=== PATIENT | male | born 1940 | race Caucasian/White ===

== ENCOUNTER 2020-09-04 09:13 | Outpatient (REF) | payer MEDICARE, SELFPAY ==
[2020-09-04 09:19] LABS: MANUAL DIFF FLAG NO
[2020-09-04 09:45] LABS: Basophils Absolute Auto 0.1 X10*3/uL (0.0-0.2); Basophils Percent Auto 0.6 % (0-2); Eosinophils Absolute Auto 0.5 X10*3/uL (0.0-0.4); Eosinophils Percent Auto 5.3 % (0-4); Hematocrit 34.6 % (42-52); Hemoglobin 11.8 g/dl (14.0-18.0); Imm Gran Abs Auto 0.07 X10*3/uL (0.00-0.03); Imm Gran Pct Auto 0.8 % (0.0-0.4); Lymphocytes Absolute Auto 1.2 X10*3/uL (1.2-4.9); Lymphocytes Percent Auto 13.8 % (20-40); Mean Corpuscular HGB Conc 34.1 g/dl (31.0-36.0); Mean Corpuscular Hemoglobin 29.9 pg (27.0-33.0); Mean Corpuscular Volume 87.6 fL (80-98); Mean Platelet Volume 9.1 fL (9.4-12.4); Monocytes Absolute Auto 0.7 X10*3/uL (0.1-1.2); Monocytes Percent Auto 8.1 % (2-11); Neutrophils Absolute Auto 6.4 X10*3/uL (2.0-8.3); Neutrophils Percent Auto 71.4 % (45-73); Platelet Count 360 X10*3/uL (160-400); Red Blood Count 3.95 X10*6/uL (4.60-5.80); Red Cell Distribution Width 13.6 % (11.0-16.0)
[2020-09-04 09:59] LABS: Alanine Aminotransferase 12 U/L (0-40); Albumin Level 3.6 g/dL (3.5-5.0); Alkaline Phosphatase 52 U/L (39-117); Anion Gap 12 (12-20); Aspartate Amino Transferase 10 U/L (5-37); Bilirubin Total 0.4 mg/dL (0.0-1.0); Blood Urea Nitrogen 19 mg/dL (9-16); Calcium 9.3 mg/dL (8.4-10.2); Carbon Dioxide 24 mmol/L (22-29); Chloride 105 mmol/L (96-108); Estimated Glomerular Filt Rate > 60; Glucose Random 84 mg/dL (60-115); Potassium 4.2 mmol/l (3.3-5.1); Sodium 137 mmol/L (135-145); Total Protein 6.7 g/dL (6.5-8.0)
[2020-09-04 10:19] LABS: Thyroid Stimulating Hormone 1.42 mIU/mL (0.32-4.0)
== END 2020-09-04 09:14 | disposition home or self-care (01) ==
LOC: HO.HSH4W 09:13
PROVIDERS: Visit Provider Internal Medicine
DX: E03.9 Hypothyroidism, unspecified (principal); N18.9 Chronic kidney disease, unspecified
CPT/HCPCS: 36415; 80053; 84443; 85025

== ENCOUNTER 2020-09-11 11:38 | Outpatient (REF) | payer MEDICARE, SELFPAY | END 2020-09-11 11:39 | disposition home or self-care (01) | LOC: HO.HSH4W 11:38 | PROVIDERS: Visit Provider Internal Medicine | DX: R21 Rash and other nonspecific skin eruption (principal) | CPT/HCPCS: 87220 ==

== ENCOUNTER 2020-09-12 06:30 | Outpatient (REF) | payer MEDICARE, SELFPAY ==
[2020-09-12 10:15] LABS: Vitamin D 25-OH Total 45.9 ng/mL (>30)
== END 2020-09-12 06:31 | disposition home or self-care (01) ==
LOC: HO.HSH4W 06:30
PROVIDERS: Visit Provider Internal Medicine
DX: R10.13 Epigastric pain (principal); E55.9 Vitamin D deficiency, unspecified
CPT/HCPCS: 82306; 99203

== ENCOUNTER 2020-09-20 11:30 | Day surgery (SDC) | payer MEDICARE, SELFPAY ==
--- NOTE | 2020-09-19 09:33 | HO.ANESPROP2 ---
Documented by User: Salma Badillo 09/19/20 13:30 HPI - Anesthesia Eval Consult details Narrative: 80yo M for EGD *DNR* *Resides at [facility]* [facility] Past Medical History Medical History (Updated 09/19/20 @ 09:35 by Salma Badillo) BPH (benign prostatic hyperplasia) Depression Diabetes Dysphagia HTN (hypertension), benign Hypothyroid Lumbar radiculopathy Neuropathy Obesity Post herpetic neuralgia Urinary catheter in place Family History Family History (Updated 09/12/20 @ 15:05 by Michelle Barney MA) Father History of heart attack Mother Hx of diabetes mellitus Hx of arthrodesis Surgical History Surgical History Hx of cholecystectomy Social History Social History Alcohol intake: never Smoking Status: Never smoker Use of substances other than those prescribed or required for medical reasons: No Advance Directives: Yes Advance Directives on File: Yes Advance Directives Date on File: 09/19/20 Meds Allergies Allergy/AdvReac Type Severity Reaction Status Date / Time amoxicillin [AMOXICILLIN] Allergy Unknown SWELLING Unverified 08/09/20 19:49 bee pollen [BEE STINGS] Allergy Unknown SWELLING Unverified 08/09/20 19:49 clavulanic acid [Augmentin] Allergy Unknown Verified 05/15/20 00:00 shellfish derived Allergy Unknown HIVES Unverified 08/09/20 19:49 [SHELLFISH DERIVED] turkey [TURKEY] Allergy Unknown SWELLING Unverified 08/09/20 19:49 bees Allergy Unknown Uncoded 05/15/20 00:00 poultry Allergy Unknown Uncoded 05/15/20 00:00 shellfish Allergy Unknown Uncoded 05/15/20 00:00 Sulfa Allergy Unknown Uncoded 05/15/20 00:00 [place] Allergy Unknown Uncoded 05/15/20 00:00 Home Medications Medication Instructions Recorded Confirmed Type amlodipine 2.5 mg tablet 2.5 mg PO DAILY 09/12/20 09/12/20 History buspirone 15 mg tablet 15 mg PO BID 09/12/20 09/12/20 History gabapentin 100 mg capsule 100 mg PO BEDTIME 09/12/20 09/12/20 History insulin glargine 100 unit/mL 20 unit SUBCUT DAILY ml 09/12/20 09/12/20 History subcutaneous solution insulin lispro 100 unit/mL See Rx Instructions SUBCUT TID 09/12/20 09/12/20 History subcutaneous pen levothyroxine 25 mcg tablet 25 mcg PO DAILY 09/12/20 09/12/20 History multivitamin 1 tab PO DAILY 09/12/20 09/12/20 History omeprazole 40 mg capsule,delayed 40 mg PO DAILY 09/12/20 09/12/20 History release sertraline 100 mg tablet 75 mg PO DAILY 09/12/20 09/12/20 History Exam Exam Date and Time: September 19, [id number] Pertinent Lab Results Pertinent Lab Results: Laboratory Tests 09/04/20 09/04/20 07:45 07:45 WBC 9.0 Hgb 11.8 L Hct 34.6 L Plt Count 360 Sodium 137 Potassium 4.2 Chloride 105 Carbon Dioxide 24 BUN 19 H Creatinine 1.12 Assessment and Plan Assessment Anesthesia Assessment: Chart Reviewed Documented by User: Rajat Ch 09/20/20 13:14 [facility] Past Medical History Medical History (Updated 09/19/20 @ 09:35 by Salma Badillo) BPH (benign prostatic hyperplasia) Depression Diabetes Dysphagia HTN (hypertension), benign Hypothyroid Lumbar radiculopathy Neuropathy Obesity Post herpetic neuralgia Urinary catheter in place Family History Family History (Updated 09/12/20 @ 15:05 by Michelle Barney MA) Father History of heart attack Mother Hx of diabetes mellitus Hx of arthrodesis Surgical History Surgical History Hx of cholecystectomy Social History Social History Alcohol intake: never Smoking Status: Never smoker Use of substances other than those prescribed or required for medical reasons: No Advance Directives: Yes Advance Directives on File: Yes Advance Directives Date on File: 09/19/20 Meds Allergies Allergy/AdvReac Type Severity Reaction Status Date / Time amoxicillin [AMOXICILLIN] Allergy Unknown SWELLING Unverified 08/09/20 19:49 bee pollen [BEE STINGS] Allergy Unknown SWELLING Unverified 08/09/20 19:49 clavulanic acid [Augmentin] Allergy Unknown Verified 05/15/20 00:00 shellfish derived Allergy Unknown HIVES Unverified 08/09/20 19:49 [SHELLFISH DERIVED] turkey [TURKEY] Allergy Unknown SWELLING Unverified 08/09/20 19:49 bees Allergy Unknown Uncoded 05/15/20 00:00 poultry Allergy Unknown Uncoded 05/15/20 00:00 shellfish Allergy Unknown Uncoded 05/15/20 00:00 Sulfa Allergy Unknown Uncoded 05/15/20 00:00 [place] Allergy Unknown Uncoded 05/15/20 00:00 Home Medications Medication Instructions Recorded Confirmed Type amlodipine 2.5 mg tablet 2.5 mg PO DAILY 09/12/20 09/12/20 History buspirone 15 mg tablet 15 mg PO BID 09/12/20 09/12/20 History gabapentin 100 mg capsule 100 mg PO BEDTIME 09/12/20 09/12/20 History insulin glargine 100 unit/mL 20 unit SUBCUT DAILY ml 09/12/20 09/12/20 History subcutaneous solution insulin lispro 100 unit/mL See Rx Instructions SUBCUT TID 09/12/20 09/12/20 History subcutaneous pen levothyroxine 25 mcg tablet 25 mcg PO DAILY 09/12/20 09/12/20 History multivitamin 1 tab PO DAILY 09/12/20 09/12/20 History omeprazole 40 mg capsule,delayed 40 mg PO DAILY 09/12/20 09/12/20 History release sertraline 100 mg tablet 75 mg PO DAILY 09/12/20 09/12/20 History Exam Airway Mallampati Class: III TM Dist: >3cm Loose/Missing/Broken Teeth: Yes (Missing many. Denies loose) Heart: RRR Assessment and Plan Assessment Anesthesia Assessment: Anesthesia Plan Discussed Final Anesthetic Review NPO: Yes ASA Class: III Final Preanesthetic Review: DNR Form (If Appl.) (Rescinded until discharge from PACU) Anesthetic Plan Anesthetic Plan: MAC: Disposition: Standard PACU
[2020-09-19 12:34] VITALS: BMI 28.8
[2020-09-20 12:23] VITALS: BP 117/73; PULSE 86; RESP 16; TEMP 36.2; O2SAT 96
[2020-09-20 12:26] LABS: Glucose, Whole Blood 186 mg/dL (60-115)
[2020-09-20] MEDS: Lactated Ringers 1,000 ML 100 ML IVCONT (13:04)
--- NOTE | 2020-09-20 13:21 | P.HPSUR_ITS ---
Pre-Procedural Eval Section B Chief Complaint: dysphagia Details of Present Illness: weight loss Relevant Family History (Specify if Yes): No Relevant Social History: None Present Medications: see Short Stay Collaborative assessment Medical History: Significant History (htn, Dm, hypothyroid, depression) History of Previous Operations: Relevant previous surgery/procedure and date(s) (cholecystectomy) Allergies: Allergies Allergy/AdvReac Type Severity Reaction Status Date / Time amoxicillin [AMOXICILLIN] Allergy Unknown SWELLING Unverified 08/09/20 19:49 bee pollen [BEE STINGS] Allergy Unknown SWELLING Unverified 08/09/20 19:49 clavulanic acid [Augmentin] Allergy Unknown Verified 05/15/20 00:00 shellfish derived Allergy Unknown HIVES Unverified 08/09/20 19:49 [SHELLFISH DERIVED] turkey [TURKEY] Allergy Unknown SWELLING Unverified 08/09/20 19:49 bees Allergy Unknown Uncoded 05/15/20 00:00 poultry Allergy Unknown Uncoded 05/15/20 00:00 shellfish Allergy Unknown Uncoded 05/15/20 00:00 Sulfa Allergy Unknown Uncoded 05/15/20 00:00 [place] Allergy Unknown Uncoded 05/15/20 00:00 Review of Systems Sugical H&P ROS: Negative: Constitution, Cardiovascular, Respiratory, Neurological, Psychiatric, Hem-Onc, Allergic/Immunologic, Gastrointestinal, Genitourinary, Musculoskeletal, Integumentary, Endocrine and Eyes/Ears/Nose/Throat Exam Surgical H&P Exam: Normal: HEENT, Normal: Heart, Normal: Lungs, Normal: Extremities, Normal: Abdomen, Normal: Skin and Normal: Neurological Plan Diagnosis/Plan: Unchanged Patient has been examined and remains a candidate for the planned procedure
--- NOTE | 2020-09-20 13:36 | PM.OP ---
Brief Operative Note Date of procedure: 09/20/20 Pre-op diagnosis: dysphagia Post-op diagnosis: same Procedure: egd, see op note Surgeon: Pam Astorga MD Anesthesia: MAC Estimated blood loss (mL): 5 Condition: stable Disposition: PACU
--- NOTE | 2020-09-20 13:37 | W.PM.OPN ---
Operative Note Operative Note Narrative: Procedure Description: EGD FLEXIBLE TRANSORAL UPPER GASTROINTESTINAL ENDOSCOPY UPPER ENDOSCOPY Consent: Indications for the procedure and potential complications of bleeding, perforation, reaction to medications and missed diagnosis were discussed with the patient and informed consent was obtained. Instrument: Olympus GIF H 190 J mid size upper endoscope Monitoring: Vital signs and clinical assessment, continuous EKG monitoring, Pulse oximetry, Carbon Dioxide monitoring and blood pressure monitoring were done throughout the procedure. Procedure: The patient was placed in the left lateral decubitis position and pre-procedure medications were administered and a bite block was placed. The endoscope was inserted into the mouth and advanced under direct vision to the third part of duodenum. A careful inspection was made as the upper endoscope was withdrawn including a retroflexed examination of the proximal stomach; Findings and interventions are described below. Findings: Larynx:normal Esophagus: GE junction at 37 cm, diaphragm hiatus at 37 cm, malignant appearing stricture with ulceration and friable tissue extending from GEJ to 31 cm, scope was able to bypass with gentle pressure, biopsies taken Stomach: Patchy gastric erythema. Grade 2 flap valve on retroflexed examination of the cardia. Duodenum: Normal bulb and descending duodenum, Intervention: Biopsies as noted above Impression/Findings: malignant appearing esophageal stricture PLAN: CT imaging of chest, abdomen and pelvis refer Dr Escoto and oncology depending on patients preferred plan of care vs palliation might need IR placed G tube for nutrition, or esophageal stent, will discuss with the other specialists on this\ meantime should be on clear diet only
[2020-09-20 13:42] VITALS: BP 94/57; PULSE 78; RESP 18; TEMP 36.3; O2SAT 94
--- NOTE | 2020-09-20 14:21 | HO.POSTANES ---
Post Anesthesia Evaluation Post Anesthesia Evaluation Vital Signs: Vital Signs Temp Pulse Resp BP Pulse Ox 09/20/20 13:42 97.3 F 78 18 94/57 L 94 09/20/20 12:23 97.1 F 86 16 117/73 96 Anesthesia: Monitored Mental Status: Awake Pain Control: Satisfactory Nausea/Vomiting: None Hydration: Adequate Anesthesia-Related Issues: No Anes. Related Issues
== END 2020-09-20 15:06 | disposition home or self-care (01) ==
PROVIDERS: PCP Internal Medicine; Visit Provider Internal Medicine Gastroenterology
PROC: (CPT 43239; principal; 2020-09-20 13:00)
DX: C15.9 Malignant neoplasm of esophagus, unspecified (principal); K22.2 Esophageal obstruction; K44.9 Diaphragmatic hernia without obstruction or gangrene; R63.4 Abnormal weight loss; I10 Essential (primary) hypertension; E11.9 Type 2 diabetes mellitus without complications; F32.9 Major depressive disorder, single episode, unspecified; E03.9 Hypothyroidism, unspecified; Z79.4 Long term (current) use of insulin; Z79.899 Other long term (current) drug therapy; B02.29 Other postherpetic nervous system involvement; Z20.828 Contact with and (suspected) exposure to other viral communicable diseases; Z90.49 Acquired absence of other specified parts of digestive tract; Z88.1 Allergy status to other antibiotic agents; Z88.2 Allergy status to sulfonamides; Z91.030 Bee allergy status; Z91.013 Allergy to seafood; Z91.018 Allergy to other foods
CPT/HCPCS: 43239; 82947; 88305; 88341; 88342; 88360; U0003

== ENCOUNTER 2020-09-20 18:10 | Outpatient (REF) | payer MEDICARE, SELFPAY | END 2020-09-20 18:11 | disposition home or self-care (01) | LOC: HO.LNP 18:10 | PROVIDERS: Visit Provider Internal Medicine Critical Care Medicine | DX: K22.8 Other specified diseases of esophagus (principal); R13.10 Dysphagia, unspecified; Z20.828 Contact with and (suspected) exposure to other viral communicable diseases | CPT/HCPCS: 82947; 88305; 88341; 88342; 88360; U0003 ==

== ENCOUNTER 2020-09-26 06:15 | Outpatient (REF) | payer MEDICARE, SELFPAY ==
[2020-09-26 08:27] LABS: MANUAL DIFF FLAG NO
[2020-09-26 08:29] LABS: Basophils Absolute Auto 0.1 X10*3/uL (0.0-0.2); Basophils Percent Auto 0.7 % (0-2); Eosinophils Absolute Auto 0.5 X10*3/uL (0.0-0.4); Eosinophils Percent Auto 4.6 % (0-4); Hematocrit 34.4 % (42-52); Hemoglobin 11.4 g/dl (14.0-18.0); Imm Gran Abs Auto 0.08 X10*3/uL (0.00-0.03); Imm Gran Pct Auto 0.8 % (0.0-0.4); Lymphocytes Absolute Auto 1.4 X10*3/uL (1.2-4.9); Mean Corpuscular HGB Conc 33.1 g/dl (31.0-36.0); Mean Corpuscular Volume 87.5 fL (80-98); Mean Platelet Volume 9.3 fL (9.4-12.4); Monocytes Percent Auto 9.7 % (2-11); Neutrophils Absolute Auto 7.1 X10*3/uL (2.0-8.3); Neutrophils Percent Auto 70.2 % (45-73); Platelet Count 352 X10*3/uL (160-400); Red Blood Count 3.93 X10*6/uL (4.60-5.80); Red Cell Distribution Width 13.6 % (11.0-16.0)
[2020-09-26 08:37] LABS: INTERNATIONAL NORM RATIO 1.2 (0.9-1.1); Prothrombin Time 14.7 SEC (10.8-13.0)
[2020-09-26 08:40] LABS: Partial Thromboplastin Time 33.1 SEC (24.1-38.0)
[2020-09-26 08:46] LABS: Estimated Average Glucose 160 mg/dL; Hemoglobin A1c % 7.2 %
[2020-09-26 08:51] LABS: Alanine Aminotransferase 28 U/L (0-40); Albumin Level 3.5 g/dL (3.5-5.0); Alkaline Phosphatase 58 U/L (39-117); Anion Gap 11 (12-20); Aspartate Amino Transferase 18 U/L (5-37); Bilirubin Total 0.6 mg/dL (0.0-1.0); Blood Urea Nitrogen 24 mg/dL (9-16); Calcium 9.1 mg/dL (8.4-10.2); Carbon Dioxide 24 mmol/L (22-29); Chloride 107 mmol/L (96-108); Estimated Glomerular Filt Rate 53; Glucose Fasting 132 mg/dL (60-99); Potassium 4.4 mmol/l (3.3-5.1); Sodium 138 mmol/L (135-145); Total Protein 6.8 g/dL (6.5-8.0)
== END 2020-09-26 06:16 | disposition home or self-care (01) ==
LOC: HO.HSH4W 06:15
PROVIDERS: Visit Provider Internal Medicine
DX: C15.9 Malignant neoplasm of esophagus, unspecified (principal); E11.9 Type 2 diabetes mellitus without complications
CPT/HCPCS: 36415; 80053; 83036; 85025; 85610; 85730

== ENCOUNTER 2020-09-27 08:57 | Outpatient (REF) | payer MEDICARE, SELFPAY ==
--- NOTE | 2020-09-27 | CT_ITS ---
EXAMINATION: CT CHEST WITH CONTRAST CT ABDOMEN AND PELVIS WITH CONTRAST CLINICAL INFORMATION: Esophageal mass. Check for metastases. COMPARISON: None TECHNIQUE: 5 mm thin axial and reformatted 3 mm thin sagittal and coronal images of chest were obtained following IV 85 mL Omnipaque 350. DLP: 510 mGy-cm. FINDINGS: CHEST: The lungs are well expanded and clear of acute pneumonic consolidation. There is no pulmonary nodule, mass or ground-glass density. The thyroid glands are symmetrical and normal. The central trachea and the bronchi are widely patent. Heart size and the great vessels are normal caliber. There is no pericardial effusion seen. There is diffuse mural thickening involving the distal esophagus and GE junction consistent with known esophageal mass. There is mild eccentric mural thickening along the right proximal mid esophagus on axial image 13/3. There is a 1.4 x 0.9 x 1.3 cm lymph node in posterior mediastinum in between the esophagus and aorta on axial image 20/3. Numerous left para-aortic lymph nodes are seen in the lower mediastinum. A benign lymph node is seen in the right paratracheal space on axial image 8/3. There is no pleural effusion or thickening. The axilla and the chest wall appear unremarkable. Osseous Structures: No lytic or sclerotic process seen. There is mild ventral spondylosis lower dorsal spine. ABDOMEN AND PELVIS: The liver is normal size, shape and contour. No focal lesion or intrahepatic ductal dilatation seen. The gallbladder has been surgically removed. There is a 9 mm small hypodensity seen in the spleen. There is no splenic enlargement. Pancreas is homogeneous in density and appears unremarkable. Bilateral adrenal glands are unremarkable. Both kidneys are normal size, shape and position. No radiopaque renal calculi or hydronephrosis. There is a 1.4 cm small exophytic cyst upper pole right kidney. The abdominal aorta is normal caliber. There is numerous abnormal lymph nodes seen throughout the entire retroperitoneum. The largest lymph nodes are left infrarenal measuring 3.6 x 2.3 x 2.4 cm on coronal image 48/5. Slightly larger lymph node measures 3.9 x 2.0 cm on coronal image 48/5. Also visualized are large aortocaval lymph nodes in the midabdomen. Also visualized are retrocrural and posterior perigastric lymph nodes. Few shotty mesenteric lymph nodes are seen as well. There is scattered stool and gas seen in colon without distention. The small-bowel loops are normal caliber. Nonspecific mild mural thickening of the small-bowel segments are seen in the midabdomen on coronal image 23/5 axial image 40/3. The appendix is normal caliber. Abdominal wall appears unremarkable. Imaging of the pelvis reveals a few scattered sigmoid diverticuli but no suspicion for diverticulitis. The bladder is nondistended due to a Avila's catheter. The bladder is not enlarged. No free fluid. No abnormal inguinal or pelvic lymph nodes seen. Bone windows reveal no lytic or sclerotic process. Mild degenerative disc changes and vacuum disc phenomena L5-S1 and L4-L5 disc level is noted. CT/CT abdomen pelvis w con IMPRESSION: Diffuse mural thickening involving the distal esophagus and GE junction. Mild right eccentric mural thickening upper and mid esophagus. Extensive abnormal retroperitoneal, retrocrural, perigastric and few scattered mesenteric lymph nodes. Normal adrenal glands. Small hypodense lesion in the spleen likely mild cyst. No liver lesions seen. No lung nodules identified.
[2020-09-27] MEDS: iohexoL 350 MG/ML 100 ML INFUS..BTL 85 ML IV (11:39)
[2020-09-27] MEDS: Barium Sulfate Oral (Vanilla) 450 ML ORAL.SUSP 900 ML PO (11:40)
== END 2020-09-27 08:58 | disposition home or self-care (01) ==
LOC: HO.CT 08:57
PROVIDERS: PCP Internal Medicine; Visit Provider Internal Medicine Endocrinology, Diabetes & Metabolism
DX: R13.10 Dysphagia, unspecified (principal); K22.8 Other specified diseases of esophagus
CPT/HCPCS: 71260; 74177; Q9967

== ENCOUNTER 2020-10-01 05:41 | Outpatient (REF) | payer MEDICARE, SELFPAY ==
[2020-10-01 06:51] LABS: INTERNATIONAL NORM RATIO 1.2 (0.9-1.1); Prothrombin Time 14.8 SEC (10.8-13.0)
[2020-10-01 06:54] LABS: Partial Thromboplastin Time 31.5 SEC (24.1-38.0)
[2020-10-01 07:00] LABS: MANUAL DIFF FLAG NO
[2020-10-01 07:13] LABS: Alanine Aminotransferase 23 U/L (0-40); Albumin Level 3.4 g/dL (3.5-5.0); Alkaline Phosphatase 59 U/L (39-117); Anion Gap 13 (12-20); Aspartate Amino Transferase 14 U/L (5-37); Basophils Absolute Auto 0.1 X10*3/uL (0.0-0.2); Basophils Percent Auto 0.5 % (0-2); Bilirubin Total 0.4 mg/dL (0.0-1.0); Blood Urea Nitrogen 26 mg/dL (9-16); Calcium 9.2 mg/dL (8.4-10.2); Carbon Dioxide 23 mmol/L (22-29); Chloride 108 mmol/L (96-108); Eosinophils Absolute Auto 0.3 X10*3/uL (0.0-0.4); Eosinophils Percent Auto 3.2 % (0-4); Estimated Glomerular Filt Rate 53; Glucose Fasting 107 mg/dL (60-99); Hemoglobin 11.7 g/dl (14.0-18.0); Imm Gran Abs Auto 0.08 X10*3/uL (0.00-0.03); Imm Gran Pct Auto 0.8 % (0.0-0.4); Lymphocytes Absolute Auto 1.1 X10*3/uL (1.2-4.9); Lymphocytes Percent Auto 11.4 % (20-40); Mean Corpuscular HGB Conc 33.4 g/dl (31.0-36.0); Mean Corpuscular Volume 86.8 fL (80-98); Monocytes Absolute Auto 0.7 X10*3/uL (0.1-1.2); Monocytes Percent Auto 7.5 % (2-11); Neutrophils Absolute Auto 7.3 X10*3/uL (2.0-8.3); Neutrophils Percent Auto 76.6 % (45-73); Platelet Count 378 X10*3/uL (160-400); Potassium 4.4 mmol/l (3.3-5.1); Red Blood Count 4.03 X10*6/uL (4.60-5.80); Red Cell Distribution Width 13.8 % (11.0-16.0); Sodium 140 mmol/L (135-145); Total Protein 6.8 g/dL (6.5-8.0); White Blood Count 9.6 X10*3/uL (4.8-10.8)
[2020-10-01 07:57] LABS: Estimated Average Glucose 163 mg/dL; Hemoglobin A1c % 7.3 %
== END 2020-10-01 05:42 | disposition home or self-care (01) ==
LOC: HO.HSH4W 05:41
PROVIDERS: Visit Provider Internal Medicine
DX: C15.9 Malignant neoplasm of esophagus, unspecified (principal); E11.9 Type 2 diabetes mellitus without complications
CPT/HCPCS: 36415; 80053; 83036; 85025; 85610; 85730

== ENCOUNTER → 2020-10-05 12:37 | Outpatient (BNVA) | payer MEDICARE, SELFPAY | PROVIDERS: PCP Internal Medicine; Referring Provider Internal Medicine; Visit Provider Surgery | DX: Z13.89 Encounter for screening for other disorder (principal) | CPT/HCPCS: 99205 ==

== ENCOUNTER 2020-10-05 15:12 | Inpatient (IN) | payer MEDICARE, SELFPAY ==
[2020-10-05 16:09] VITALS: BP 129/76; PULSE 71; RESP 16; TEMP 36.7; O2SAT 97; BMI 26.7
--- NOTE | 2020-10-05 16:30 | PC.NURSE ---
PT TRIAGED C/O BEING UNABLE TO EAT X 2 DAYS, CITING ESOPHAGEAL STRICTURES THAT CAUSE VOMITING PROMPTLY AFTER EATING. DENIES ANY PAIN, NAUSEA AT THIS TIME. LAST VOMITED THIS AM, LAST BM THIS AM WELL. [facility], BROUGHT IN BY HIS DAUGHTER. VS WNL, SPEAKING IN CLEAR FULL SENTENCES. A&O. USES WHEELCHAIR, HX ACCIDENT THAT DAMAGED HIS LEGS.
--- NOTE | 2020-10-05 16:36 | ED_ITS ---
HPI - General Adult General Chief complaint: General Medical Stated complaint: WEIGHT LOSS Time Seen by Provider: 10/05/20 16:28 Source: patient Mode of arrival: ambulatory Limitations: no limitations History of Present Illness HPI narrative: Patient comes to the emergency room complaining not being able to eat and weight loss. Patient is coming from Dr. Alonso's office. Patient has history of Anderson's esophagus and adeno carcinoma of the esophagus as well. Patient has lost 6 lb in 2 days, only consuming liquid diet. At this time, patient denies any pain. Patient had an upper endoscopy done on 09/20/2020,m it was found that patient has a malignant appearing stricture with ulceration and friable tissue. Patient was sent for an admission MD complaint: Weight loss, esophageal stricture Related Data Home Medications Medication Instructions Recorded Confirmed amlodipine 2.5 mg tablet 2.5 mg PO DAILY 09/12/20 10/05/20 buspirone 15 mg tablet 15 mg PO BID 09/12/20 10/05/20 gabapentin 100 mg capsule 100 mg PO BEDTIME 09/12/20 10/05/20 insulin glargine 100 unit/mL 20 unit SUBCUT DAILY ml 09/12/20 10/05/20 subcutaneous solution insulin lispro 100 unit/mL See Rx Instructions SUBCUT TID 09/12/20 10/05/20 subcutaneous pen levothyroxine 25 mcg tablet 25 mcg PO DAILY 09/12/20 10/05/20 multivitamin 1 tab PO DAILY 09/12/20 10/05/20 omeprazole 40 mg capsule,delayed 40 mg PO DAILY 09/12/20 10/05/20 release sertraline 100 mg tablet 75 mg PO DAILY 09/12/20 10/05/20 Allergies Allergy/AdvReac Type Severity Reaction Status Date / Time amoxicillin [AMOXICILLIN] Allergy Unknown SWELLING Unverified 08/09/20 19:49 bee pollen [BEE STINGS] Allergy Unknown SWELLING Unverified 08/09/20 19:49 clavulanic acid [Augmentin] Allergy Unknown Verified 05/15/20 00:00 shellfish derived Allergy Unknown HIVES Unverified 08/09/20 19:49 [SHELLFISH DERIVED] turkey [TURKEY] Allergy Unknown SWELLING Unverified 08/09/20 19:49 bees Allergy Unknown Uncoded 05/15/20 00:00 poultry Allergy Unknown Uncoded 05/15/20 00:00 shellfish Allergy Unknown Uncoded 05/15/20 00:00 Sulfa Allergy Unknown Uncoded 05/15/20 00:00 [place] Allergy Unknown Uncoded 05/15/20 00:00 Review of Systems Review of Systems: Constitutional : No Weight loss, No Fever, No Chills, No Night Sweats, No Fatigue, No Malaise ENT/Mouth : No Hearing loss, No Ear Pain, No Nasal Congestion, No Sinus Pain, No Hoarseness, No sore throat, No Rhinorrhea, complaining difficulty swallowing, food getting stuck. Eyes: No Eye Pain, No Swelling, No Redness, No Foreign Body, No Discharge, No Vision Changes Cardiovascular : No Chest Pain, No SOB, No Dyspnea on Exertion, No Orthopnea, No Edema, No Palpitations Respiratory : No Cough, No Sputum, No Wheezing, No Smoke Exposure, No Dyspnea Gastrointestinal : No Nausea, No Vomiting, No Diarrhea, No Constipation, No abdominal Pain, No Hematochezia, No Melena Genitourinary : no irregular bleeding, No Dysuria, No Urinary Frequency, No Hematuria, No Urinary Incontinence, No Urgency, No Flank Pain, No Urinary Flow Changes, No Hesitancy Musculoskeletal : No joint pain, No Myalgias, No Joint Swelling Skin : No Skin Lesions, No rash Neuro : No Weakness, No Numbness, No Paresthesias, No Loss of Consciousness, No Dizziness, No Headache Psych : No Anxiety/Panic, No Depression, No SI/HI/AH/VH, No Social Issues, Heme/Lymph: No Bruising, No Bleeding,No Lymphadenopathy Endocrine : No Polyuria, No Polydipsia, No Temperature Intolerance PMFSH Past Medical History Medical History (Updated 10/05/20 @ 16:41 by Chika Roldan MD) BPH (benign prostatic hyperplasia) Depression Diabetes Dysphagia HTN (hypertension), benign Hypothyroid Lumbar radiculopathy Neuropathy Obesity Post herpetic neuralgia Urinary catheter in place Surgical History Hx of cholecystectomy Family History Family History (Updated 09/12/20 @ 15:05 by Michelle Barney MA) Father History of heart attack Mother Hx of diabetes mellitus Hx of arthrodesis Social History Social History Alcohol intake: never Smoking Status: Never smoker Use of substances other than those prescribed or required for medical reasons: No Advance Directives: Yes Advance Directives on File: Yes Advance Directives Date on File: 09/19/20 Physical Exam Vital Signs: Vital Signs: Last Vital Signs Temp 98.1 F 10/05/20 16:09 Pulse 71 10/05/20 16:09 Resp 16 10/05/20 16:09 BP 129/76 10/05/20 16:09 Pulse Ox 97 10/05/20 16:09 Body Mass Index 26.7 Course Course Course Narrative: Dr. Alvarado is aware of the patient, and was already admitted. Patient is admitted for further evaluation, treatment, and G-tube placement Discharge Plan Discharge Clinical Impression: Esophageal mass, Adenocarcinoma of esophagus Patient Disposition: Admitted As Inpatient Prescriptions: No Action Lantus U-100 Insulin 100 unit/mL solution 20 unit subcut DAILY RF: 0 gabapentin 100 mg capsule 100 mg PO BEDTIME RF: 0 sertraline [Zoloft] 100 mg tablet 75 mg PO DAILY RF: 0 amlodipine 2.5 mg tablet 2.5 mg PO DAILY RF: 0 levothyroxine 25 mcg tablet 25 mcg PO DAILY RF: 0 multivitamin Tablet 1 tab PO DAILY RF: 0 buspirone 15 mg tablet 15 mg PO BID RF: 0 insulin lispro 100 unit/mL insulin pen See Rx Instructions subcut TID RF: 0 omeprazole 40 mg capsule,delayed release(DR/EC) 40 mg PO DAILY RF: 0
--- NOTE | 2020-10-05 16:45 | XR_ITS ---
EXAMINATION: XR CHEST CLINICAL INFORMATION: Bilateral crackles COMPARISON: CT scan of September 27, 2020 and chest x-ray of December 14, 2013 TECHNIQUE: AP portable view of the chest was obtained. FINDINGS: There is no evidence of acute parenchymal disease, pneumothorax, or pleural effusion. Heart normal size. No evidence of pulmonary edema. XR/XR chest 1V IMPRESSION: No acute parenchymal disease.
[2020-10-05 17:15] LABS: MANUAL DIFF FLAG NO
[2020-10-05 17:17] LABS: Basophils Absolute Auto 0.1 X10*3/uL (0.0-0.2); Basophils Percent Auto 0.8 % (0-2); Eosinophils Absolute Auto 0.4 X10*3/uL (0.0-0.4); Hematocrit 38.4 % (42-52); Hemoglobin 12.8 g/dl (14.0-18.0); Imm Gran Abs Auto 0.09 X10*3/uL (0.00-0.03); Imm Gran Pct Auto 0.9 % (0.0-0.4); Lymphocytes Absolute Auto 1.3 X10*3/uL (1.2-4.9); Lymphocytes Percent Auto 12.6 % (20-40); Mean Corpuscular HGB Conc 33.3 g/dl (31.0-36.0); Mean Corpuscular Hemoglobin 29.1 pg (27.0-33.0); Mean Corpuscular Volume 87.3 fL (80-98); Mean Platelet Volume 8.8 fL (9.4-12.4); Monocytes Percent Auto 9.1 % (2-11); Neutrophils Absolute Auto 7.6 X10*3/uL (2.0-8.3); Neutrophils Percent Auto 72.6 % (45-73); Platelet Count 384 X10*3/uL (160-400); Red Cell Distribution Width 13.9 % (11.0-16.0); White Blood Count 10.5 X10*3/uL (4.8-10.8)
--- NOTE | 2020-10-05 17:30 | PC.NURSE ---
[facility]
[2020-10-05 17:47] LABS: Alanine Aminotransferase 17 U/L (0-40); Albumin Level 3.8 g/dL (3.5-5.0); Alkaline Phosphatase 67 U/L (39-117); Anion Gap 15 (12-20); Aspartate Amino Transferase 17 U/L (5-37); Bilirubin Direct 0.3 mg/dL (0.0-0.5); Bilirubin Total 0.7 mg/dL (0.0-1.0); Blood Urea Nitrogen 23 mg/dL (9-16); Calcium 9.7 mg/dL (8.4-10.2); Carbon Dioxide 23 mmol/L (22-29); Chloride 104 mmol/L (96-108); Creatinine Clr Calc Pharmacy 40.1; Estimated Glomerular Filt Rate 51; Glucose Random 145 mg/dL (60-115); Potassium 4.9 mmol/l (3.3-5.1); Sodium 137 mmol/L (135-145); Total Protein 7.6 g/dL (6.5-8.0)
[2020-10-05 17:55] LABS: COVID-19 Test Negative (Negative)
--- NOTE | 2020-10-05 18:34 | PC.NURSE ---
report given to medical accountant
[2020-10-05 18:40] VITALS: BP 127/73; PULSE 79; RESP 16; O2SAT 98
[2020-10-05 19:10] VITALS: BP 119/78; PULSE 73; RESP 18; TEMP 36.6; O2SAT 99
[2020-10-05] MEDS: 0.9 % Sodium Chloride 1,000 ML 100 ML IVCONT (20:26)
[2020-10-05 20:57] LABS: Glucose, Whole Blood 136 mg/dL (60-115)
[2020-10-05 23:51] VITALS: BP 135/69; PULSE 78; RESP 16; TEMP 36.6; O2SAT 97
[2020-10-06 03:36] VITALS: BP 137/73; PULSE 76; RESP 16; TEMP 36.5; O2SAT 98
[2020-10-06] MEDS: 0.9 % Sodium Chloride 1,000 ML 100 ML IVCONT ×2 (05:01→15:19)
[2020-10-06 07:31] VITALS: BP 148/79; PULSE 74; RESP 18; TEMP 36.8; O2SAT 98
[2020-10-06] MEDS: Famotidine/PF 20 MG/2 ML VIAL IVPUSH (08:56)
[2020-10-06] MEDS: ondansetron HCL 4 MG/2 ML VIAL IVPUSH (08:58)
--- NOTE | 2020-10-06 09:59 | MHC.CM.PN ---
PATIENT IS FROM [facility] (4TH FLOOR) HE USES HIS OWN WHEEL CHAIR TO MOBILIZE, AND HAS A CHRONIC ARREGUIN. HERMINIO ON FILE PATIENT REPORTS THAT HIS HCP AGENT IS HIS NIECE, BALJINDER GILMORE ([phone]) THIS [employer] ARRANGEMENT SPECIALIST UNABLE TO LOCATE PATIENT'S PAPER CHART, AND WILL LOOK FOR A HCP ONCE IT IS RETURNED TO THE UNIT PLAN IS FOR PATIENT TO RETURN AT DISCHARGE. CASE MANAGEMENT FOLLOWING. IMM 10/06 WITH THIS [employer] ARRANGEMENT SPECIALIST AWAITING CHART.
[2020-10-06 11:28] LABS: Glucose, Whole Blood 143 mg/dL (60-115)
--- NOTE | 2020-10-06 11:29 | P.PNIM_ITS ---
Subjective Subjective Date of Service: 10/06/20 Interval History: patient complained of nausea and not feeling well this morning after receiving nausea medication patient feeling significantly better able to take few sips of liquids and applesauce is willing to try home medications with applesauce. Review of Systems General Complain of generalized pain, not feeling well,no headache ,no dizziness, no fever chills. CVS no chest pain, no palpitation. Respiratory no cough, no shortness of breath Gastrointestinal + nausea, no vomiting, no abdominal pain Physical Exam Vital Signs: Vital Signs: Last Vital Signs Temp 98.2 F 10/06/20 07:31 Pulse 74 10/06/20 07:31 Resp 18 10/06/20 07:31 BP 148/79 H 10/06/20 07:31 Pulse Ox 98 10/06/20 07:31 Body Mass Index 26.7 General patient resting comfortably in no acute distress. Neck supple no JVD. CVS regular rate rhythm, Respiratory lungs clear to auscultation, no respiratory distress Gastrointestinal abdomen soft, nontender, bowel sounds audible Extremities no clubbing cyanosis or edema. good peripheral pulses Neuro awake alert x3 Skin no rash Objective Data Current Medications Generic Name Dose Route Start Last Admin Trade Name Freq PRN Reason Stop Dose Admin Acetaminophen 650 mg 10/05/20 19:43 Acetaminophen 325 Mg Tablet PO Q6H PRN Pain, Mild (Pain Scale 1-3) Bupropion HCl 150 mg 10/07/20 09:00 Bupropion Hcl Xl 150 Mg Tab.Er.24h PO DAILY VARUN Famotidine 20 mg 10/06/20 09:00 10/06/20 08:56 Famotidine/Pf 20 Mg/2 Ml Vial IVPUSH 20 mg DAILY VARUN Administration Gabapentin 200 mg 10/06/20 11:30 Gabapentin 100 Mg Capsule PO BID VARUN Sodium Chloride 1,000 mls @ 80 mls/hr 10/05/20 19:43 10/06/20 05:01 Ns IVCONT 100 mls/hr .[id number] VARUN Administration Levothyroxine Sodium 25 mcg 10/07/20 06:30 Levothyroxine Sodium 25 Mcg Tablet PO DAILY@0630 VARUN Ondansetron HCl 4 mg 10/05/20 19:43 10/06/20 08:58 Ondansetron Hcl 4 Mg/2 Ml Vial IVPUSH 4 mg Q8H PRN Administration Nausea and Vomiting Oxycodone HCl 5 mg 10/06/20 11:24 Oxycodone Hcl Immed Release 5 Mg Tablet PO Q4H PRN Pain (Scale Score 7-10) Pharmacy Consult 1 each 10/05/20 16:35 Consult Rx Perform Med Rec MISCELLANE ONCE PRN Consult order Sertraline HCl 75 mg 10/06/20 11:30 Sertraline Hcl 50 Mg Tablet PO DAILY VARUN Sodium Chloride 3 ml 10/06/20 00:00 10/06/20 08:56 0.9 % Sodium Chloride Flush 3 Ml Syringe IVFLUSH Not Given QSHIFT [facility] Labs CBC & Chem 7: 10/05/20 17:05 10/05/20 17:06 Assessment and Plan (1) Adenocarcinoma of esophagus: Status: Acute (2) Dysphagia: Status: Acute (3) NIDDY (non-insulin dependent diabetes mellitus in young): Status: Acute (4) BPH (benign prostatic hyperplasia): Status: Acute (5) Depression: Status: Acute (6) Hypothyroid: Status: Acute (7) Neuropathy: Status: Acute (8) HTN (hypertension), benign: Status: Acute (9) Urinary catheter in place: Status: Acute Assessment and Plan: 80-year-old gentleman recently diagnosed to have 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 Dysphagia due to esophageal stricture related to poorly diff.adeno carcinoma of esophagus will continue IV fluids, NPO with sips of clear liquids, and medicines crushed in applesauce, due to recurrent nausea patient will be treated with anti emetics, IV Pepcid, IR to place PEG tube on Thursday, case discussed with patient oncologist Dr. Alonso Hypothyroidism will resume Synthroid crushed in applesauce. History of BPH with indwelling Avila catheter continue Avila care Non insulin dependent diabetes mellitus on insulin blood sugars are within desired range therefore will check blood sugars twice daily and hold off on i nsulin due to NPO. Neuropathy likely related to diabetes will continue gabapentin twice daily pat ient takes it at 3 times a day. Hypertension BP stable patient not on any home medication Depression will continue Zoloft and Wellbutrin. Code status DNR DNI DVT prophylaxis with compression boots
[2020-10-06 11:33] LABS: Glucose, Whole Blood 169 mg/dL (60-115)
[2020-10-06 12:00] VITALS: BP 145/67; PULSE 62; RESP 18; TEMP 36.6; O2SAT 97
[2020-10-06] MEDS: Sertraline HCL 50 MG TABLET 75 MG PO (13:18)
[2020-10-06] MEDS: Gabapentin 100 MG CAPSULE 200 MG PO ×2 (13:18→21:19)
--- NOTE | 2020-10-06 15:12 | PM.HEMONCPN ---
Medical Summary - Medical Summary Chief complaint: F/U for Ca Esophagus. 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 Interval History Interval history: 80 year old gentleman with recent diagnosis of Adenocarcinoma of Lower end of Esophagus, admitted with dysphagia. He complains of nausea. He has not been able to tolerate liquids. He tried to drink water but was unable to swallow, it came right back up. He tried to take meds with apple sauce. Applesauce came up but luckily, the meds stayed down. He is rather fatigued. He is afebrile. In good spirits. Review of Systems - Constitutional Reports anorexia, Reports fatigue, Reports lack of energy, Reports malaise, Denies fever(s) - Eyes Denies blind spots - ENT Reports system reviewed and no additional complaints, except as documented, Reports throat swelling - Cardiovascular Denies chest pain at rest - Respiratory Denies chest congestion - Gastrointestinal Reports change in bowel habits, Reports nausea, Reports vomiting, Denies abdominal pain - Musculoskeletal Reports muscle weakness - Integumentary/Breasts Skin/Breast: Denies bleeding lesions - Neurologic Reports system reviewed and no additional complaints, except as documented, Reports weakness - Hematologic/Lymphatic Denies easy bleeding - Allergic/Immunologic Reports GI upset with certain foods PMFSH Medical History: Medical History (Last Reviewed 10/08/20 @ 12:59 by Isaias Talamantes MD) BPH (benign prostatic hyperplasia) Depression Diabetes Dysphagia HTN (hypertension), benign Hypothyroid Lumbar radiculopathy Neuropathy Obesity Post herpetic neuralgia Urinary catheter in place Functional capacity: wheelchair bound Patient : No Family History: Family History (Last Reviewed 10/08/20 @ 12:59 by Isaias Talamantes MD) Father History of heart attack Mother Hx of diabetes mellitus Hx of arthrodesis Surgical History: Surgical History (Last Reviewed 10/08/20 @ 12:59 by Isaias Talamantes MD) Hx of cholecystectomy Smoking status: Never smoker Home Medications and Allergies Current Medications: Current Medications Generic Name Dose Route Start Last Admin Trade Name Freq PRN Reason Stop Dose Admin Acetaminophen 650 mg 10/05/20 19:43 Acetaminophen 325 Mg Tablet PO Q6H PRN Pain, Mild (Pain Scale 1-3) Bupropion HCl 150 mg 10/07/20 09:00 Bupropion Hcl Xl 150 Mg Tab.Er.24h PO DAILY VARUN Famotidine 20 mg 10/06/20 09:00 11/14/20 08:56 Famotidine/Pf 20 Mg/2 Ml Vial IVPUSH 20 mg DAILY [facility] Administration Gabapentin 200 mg 10/06/20 11:30 10/06/20 13:18 Gabapentin 100 Mg Capsule PO 200 mg BID [facility] Administration Sodium Chloride 1,000 mls @ 80 mls/hr 10/05/20 19:43 10/06/20 05:01 Ns IVCONT 100 mls/hr .[id number] [facility] Administration Levothyroxine Sodium 25 mcg 10/07/20 06:30 Levothyroxine Sodium 25 Mcg Tablet PO DAILY@0630 [facility] Ondansetron HCl 4 mg 10/05/20 19:43 10/06/20 08:58 Ondansetron Hcl 4 Mg/2 Ml Vial IVPUSH 4 mg Q8H PRN Administration Nausea and Vomiting Oxycodone HCl 5 mg 10/06/20 11:24 Oxycodone Hcl Immed Release 5 Mg Tablet PO Q4H PRN Pain (Scale Score 7-10) Pharmacy Consult 1 each 10/05/20 16:35 Consult Rx Perform Med Rec MISCELLANE ONCE PRN Consult order Sertraline HCl 75 mg 10/06/20 11:30 10/06/20 13:18 Sertraline Hcl 50 Mg Tablet PO 75 mg DAILY [facility] Administration Sodium Chloride 3 ml 10/06/20 00:00 10/06/20 08:56 0.9 % Sodium Chloride Flush 3 Ml Syringe IVFLUSH Not Given QSHIFT [facility] Home Medications Medication Instructions Recorded Confirmed Type gabapentin 100 mg capsule 100 mg PO DAILY@1300 09/12/20 10/05/20 History insulin glargine 100 unit/mL 20 unit SUBCUT DAILY ml 09/12/20 10/05/20 History subcutaneous solution levothyroxine 25 mcg tablet 25 mcg PO DAILY 09/12/20 10/05/20 History bupropion HCl [Wellbutrin SR] 150 mg PO DAILY 10/05/20 10/05/20 History cholecalciferol (vitamin D3) 25 mcg PO DAILY 10/05/20 10/05/20 History gabapentin 200 mg PO BID 10/05/20 10/05/20 History insulin lispro 1 sliding scale dose SUBCUT TID 10/05/20 10/05/20 History multivitamin with minerals 1 tab PO DAILY 10/05/20 10/05/20 History oxycodone 5 mg PO Q4H PRN 10/05/20 10/05/20 History pantoprazole 40 mg PO DAILY 10/05/20 10/05/20 History sertraline [Zoloft] 75 mg PO DAILY 10/05/20 10/05/20 History Allergies Allergy/AdvReac Type Severity Reaction Status Date / Time amoxicillin [AMOXICILLIN] Allergy Unknown SWELLING Verified 10/05/20 21:57 bee pollen [BEE STINGS] Allergy Unknown SWELLING Verified 10/05/20 21:57 clavulanic acid [Augmentin] Allergy Unknown Unknown Verified 10/05/20 21:57 shellfish derived Allergy Unknown HIVES Verified 10/05/20 21:57 [SHELLFISH DERIVED] turkey [TURKEY] Allergy Unknown SWELLING Verified 10/05/20 21:57 bees Allergy Unknown Swelling Uncoded 10/05/20 21:57 poultry Allergy Unknown Hives Uncoded 10/05/20 21:57 shellfish Allergy Unknown Hives Uncoded 10/05/20 21:57 Sulfa Allergy Unknown Hives Uncoded 10/05/20 21:57 [place] Allergy Unknown Hives Uncoded 10/05/20 21:57 Exam Vital signs: Vital Signs Temp 97.9 F 10/06/20 12:00 Pulse 62 10/06/20 12:00 Resp 18 10/06/20 12:00 BP 145/67 H 10/06/20 12:00 Pulse Ox 97 10/06/20 12:00 Intake & Output 10/05/20 10/06/20 10/06/20 18:59 06:59 18:59 Intake Total 858.333 / 858.333 Output Total 600 / 600 600 / 600 Balance 258.333 / 258.333 -600 / -600 Urine Output (Average ml/kg/hr) 0.64 0.64 Intake: Intake, IV Amount 858.333 / 858.333 0.9 % Sodium Chloride 1,000 ml 858.333 / 858.333 @ 80 mls/hr IVCONT .[id number] [facility] Rx#:[id number] Output: Output, Urine Amount (Catheter) 600 / 600 600 / 600 Urethral 600 / 600 600 / 600 Other: NPO Yes Urine Color Cloudy Yellow Weight 77.564 kg Weight 77.564 kg Body Mass Index 26.7 - Constitutional Present: mild distress - Routine HEENT Exam Head: Present: normal inspection Eye: Present: normal appearance ENT: Present: mucous membranes moist - Routine Respiratory Exam Present: CTAB - Routine Cardiovascular Exam Cardiovascular: Present: S1, S2 - Routine Extremities Exam Present: nontender - Routine Skin Exam Present: intact - Routine Neurological Exam Present: alert, oriented X3 - Routine Psychiatric Exam Present: normal affect Data - Labs CBC & Chem 7: 10/11/20 06:15 10/10/20 06:08 Labs: Laboratory Results - last 24 hr 10/05/20 10/05/20 10/05/20 17:05 17:06 17:06 WBC 10.5 RBC 4.40 L Hgb 12.8 L Hct 38.4 L MCV 87.3 MCH 29.1 MCHC 33.3 RDW 13.9 Plt Count 384 MPV 8.8 L Immature Gran % (Auto) 0.9 H Neut % (Auto) 72.6 Lymph % (Auto) 12.6 L [place] % (Auto) 9.1 Eos % (Auto) 4.0 Baso % (Auto) 0.8 Lymph # (Auto) 1.3 [place] # (Auto) 1.0 Eos # (Auto) 0.4 Baso # (Auto) 0.1 Abs Immat Gran (auto) 0.09 H Absolute Neuts (auto) 7.6 Absolute Nucleated RBC 0.000 Nucleated RBC % (auto) 0.0 Sodium 137 Potassium 4.9 Chloride 104 Carbon Dioxide 23 Anion Gap 15 BUN 23 H Creatinine 1.35 Estim Creat Clear Calc 40.1 Estimated GFR 51 POC Glucose Random Glucose 145 H Calcium 9.7 Total Bilirubin 0.7 Direct Bilirubin 0.3 AST 17 ALT 17 Alkaline Phosphatase 67 Total Protein 7.6 Albumin 3.8 COVID-19 (АЛЕКСАНДР) Negative COVID-19 Clin Com See Note 10/05/20 10/06/20 10/06/20 20:54 07:34 11:28 WBC RBC Hgb Hct MCV MCH MCHC RDW Plt Count MPV Immature Gran % (Auto) Neut % (Auto) Lymph % (Auto) [place] % (Auto) Eos % (Auto) Baso % (Auto) Lymph # (Auto) [place] # (Auto) Eos # (Auto) Baso # (Auto) Abs Immat Gran (auto) Absolute Neuts (auto) Absolute Nucleated RBC Nucleated RBC % (auto) Sodium Potassium Chloride Carbon Dioxide Anion Gap BUN Creatinine Estim Creat Clear Calc Estimated GFR POC Glucose 136 H 143 H 169 H Random Glucose Calcium Total Bilirubin Direct Bilirubin AST ALT Alkaline Phosphatase Total Protein Albumin COVID-19 (АЛЕКСАНДР) COVID-19 Clin Com Progress Note: A/P (1) Adenocarcinoma of esophagus Status: Acute Assessment and plan: PLAN:: 80-year-old male with multiple comorbidities and now distal Esophageal Cancer likely metastatic given the lymphadenopathy intra-abdominally on the CT scan. He does have a PET scan scheduled for next week on Thursday. Currently I think anything we do for him will be palliative. He would likely not be a surgical candidate for Esophagectomy. I long discussion with him and his daughter about the details of the diagnosis, staging, and treatment of esophageal cancer in detail which they seemed understand. Will arrange for combined modality therapy. He has seen the radiation Therapist, at [facility]. (2) Dysphagia: Since he is not tolerating liquids at times he would benefit from enteral nutrition. I have requested IR to place a gastrostomy tube. They have ordered the kits. PLAN: He is scheduled to have the tube placed by IR on . by Dr. Stovall. If that is not feasible, will request surgery to place is laprscoically. I discussed the risks benefits and alternatives of this in detail with him, which he understands. Would continue IV hydration & Anti-emetics. Thanks, CC: Dr. Talamantes. - Time Spent With Patient Total time spent is greater than 50% in coordination of care (as documented) at patient's floor/unit and/or counseling patient: 25 - 35 minutes
[2020-10-06 15:21] VITALS: BP 142/70; PULSE 67; RESP 19; TEMP 37.1; O2SAT 97
[2020-10-06 19:47] VITALS: BP 150/72; PULSE 70; RESP 19; TEMP 36.2; O2SAT 96
[2020-10-06] MEDS: 0.9 % Sodium Chloride Flush 3 ML SYRINGE IVFLUSH (21:22)
[2020-10-06 23:11] LABS: Glucose, Whole Blood 138 mg/dL (60-115)
[2020-10-06 23:56] VITALS: BP 144/67; PULSE 64; RESP 16; TEMP 36.5; O2SAT 97
[2020-10-07] MEDS: 0.9 % Sodium Chloride 1,000 ML 100 ML IVCONT ×2 (02:10→12:35)
[2020-10-07 04:04] VITALS: BP 135/74; PULSE 68; RESP 18; TEMP 36.6; O2SAT 98
[2020-10-07] MEDS: Levothyroxine Sodium 25 MCG TABLET PO (06:06)
[2020-10-07 07:36] VITALS: BP 153/72; PULSE 69; RESP 18; TEMP 36.4; O2SAT 95
[2020-10-07 08:05] LABS: Glucose, Whole Blood 143 mg/dL (60-115)
[2020-10-07] MEDS: Sertraline HCL 50 MG TABLET 75 MG PO (09:45)
[2020-10-07] MEDS: Gabapentin 100 MG CAPSULE 200 MG PO ×2 (09:45→22:55)
[2020-10-07] MEDS: buPROPion HCl XL 150 MG TAB.ER.24H PO (09:45)
[2020-10-07] MEDS: Morphine Sulfate 4 MG/ML CARTRIDGE 3 MG IVPUSH (09:45)
[2020-10-07] MEDS: Famotidine/PF 20 MG/2 ML VIAL IVPUSH (09:45)
[2020-10-07 11:52] VITALS: BP 117/63; PULSE 71; RESP 18; TEMP 36.7; O2SAT 96
--- NOTE | 2020-10-07 12:47 | HO.PM.IMPN ---
Subjective Subjective Date of Service: 10/07/20 Interval History: patient evaluated for dysphagia, complaining of abdominal discomfort was unable to sleep last night not sure why he just could not fall asleep, no acute issues overnight Review of Systems General no headache, no dizziness no fever chills. CVS no chest pain, no palpitation. Respiratory no cough, no shortness of breath Gastrointestinal complaining of epigastric pain, persistent nausea and regurgitation of applesauce Physical Exam Vital Signs: Vital Signs: Last Vital Signs Temp 98.0 F 10/07/20 11:52 Pulse 71 10/07/20 11:52 Resp 18 10/07/20 11:52 BP 117/63 10/07/20 11:52 Pulse Ox 96 10/07/20 11:52 Body Mass Index 26.7 General patient resting comfortably in no acute distress. Neck supple no JVD. CVS regular rate rhythm, Respiratory lungs clear to auscultation, no respiratory distress Gastrointestinal abdomen soft, mild epigastric discomfort with palpation, bowel sounds audible Extremities no clubbing cyanosis or edema. good peripheral pulses Neuro awake alert x3 Skin no rash Objective Data Current Medications Generic Name Dose Route Start Last Admin Trade Name Freq PRN Reason Stop Dose Admin Acetaminophen 650 mg 10/05/20 19:43 Acetaminophen 325 Mg Tablet PO Q6H PRN Pain, Mild (Pain Scale 1-3) Bupropion HCl 150 mg 10/07/20 09:00 10/07/20 09:45 Bupropion Hcl Xl 150 Mg Tab.Er.24h PO 150 mg DAILY VARUN Administration Famotidine 20 mg 10/06/20 09:00 10/07/20 09:45 Famotidine/Pf 20 Mg/2 Ml Vial IVPUSH 20 mg DAILY VAR[facility] Administration Gabapentin 200 mg 10/06/20 11:30 10/07/20 09:45 Gabapentin 100 Mg Capsule PO 200 mg BID VARUN Administration Sodium Chloride 1,000 mls @ 80 mls/hr 10/05/20 19:43 10/07/20 12:35 Ns IVCONT 100 mls/hr .[id number] VARUN Administration Levothyroxine Sodium 25 mcg 10/07/20 06:30 10/07/20 06:06 Levothyroxine Sodium 25 Mcg Tablet PO 25 mcg DAILY@0630 VARUN Administration Morphine Sulfate 3 mg 10/07/20 08:58 10/07/20 09:45 Morphine Sulfate 4 Mg/Ml Cartridge IVPUSH 3 mg Q4H PRN Administration Pain, Severe (Pain Scale 7-10) Ondansetron HCl 4 mg 10/05/20 19:43 10/06/20 08:58 Ondansetron Hcl 4 Mg/2 Ml Vial IVPUSH 4 mg Q8H PRN Administration Nausea and Vomiting Oxycodone HCl 5 mg 10/06/20 11:24 Oxycodone Hcl Immed Release 5 Mg Tablet PO Q4H PRN Pain (Scale Score 7-10) Pharmacy Consult 1 each 10/05/20 16:35 Consult Rx Perform Med Rec MISCELLANE ONCE PRN Consult order Sertraline HCl 75 mg 10/06/20 11:30 10/07/20 09:45 Sertraline Hcl 50 Mg Tablet PO 75 mg DAILY VARUN Administration Sodium Chloride 3 ml 10/06/20 00:00 10/07/20 09:44 0.9 % Sodium Chloride Flush 3 Ml Syringe IVFLUSH Not Given QSHIFT VARUN Labs CBC & Chem 7: 10/05/20 17:05 10/05/20 17:06 Assessment and Plan (1) Adenocarcinoma of esophagus: Status: Acute (2) Dysphagia: Status: Acute (3) NIDDY (non-insulin dependent diabetes mellitus in young): Status: Acute (4) BPH (benign prostatic hyperplasia): Status: Acute (5) Depression: Status: Acute (6) Hypothyroid: Status: Acute (7) Neuropathy: Status: Acute (8) HTN (hypertension), benign: Status: Acute (9) Urinary catheter in place: Status: Acute Assessment and Plan: 80-year-old gentleman recently diagnosed to have 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 Dysphagia due to esophageal stricture related to poorly diff.adeno carcinoma of esophagus will continue IV fluids, NPO with sips of clear liquids, and medicines crushed in applesauce, as tolerated, will add IV morphine prn, for abdominal discomfort continue anti emetics, IV Pepcid, IR to place PEG tube on Thursday, if they are unable to place will consult General surgery Hypothyroidism will resume Synthroid crushed in applesauce. History of BPH with chronic indwelling Avila catheter continue Avila care. Non insulin dependent diabetes mellitus on insulin blood sugars are within desired range therefore will check blood sugars twice daily and hold off on insulin due to NPO. Neuropathy likely related to diabetes will continue gabapentin twice daily patient takes it at 3 times a day. Hypertension BP stable patient not on any home medication Depression will continue Zoloft and Wellbutrin. Code status DNR DNI DVT prophylaxis with compression boots
[2020-10-07 15:37] VITALS: BP 150/77; PULSE 83; RESP 18; TEMP 36.4; O2SAT 98
[2020-10-07 19:42] VITALS: BP 150/74; PULSE 74; RESP 18; TEMP 37.1; O2SAT 96
[2020-10-07 22:41] LABS: Glucose, Whole Blood 131 mg/dL (60-115)
[2020-10-07 23:23] VITALS: BP 149/68; PULSE 75; RESP 19; TEMP 36.3; O2SAT 96
[2020-10-08] MEDS: 0.9 % Sodium Chloride 1,000 ML 100 ML IVCONT ×2 (00:26→12:30)
[2020-10-08 03:44] VITALS: BP 139/73; PULSE 82; RESP 19; TEMP 36.4; O2SAT 96
[2020-10-08 06:59] LABS: INTERNATIONAL NORM RATIO 1.3 (0.9-1.1); Prothrombin Time 15.8 SEC (10.8-13.0)
[2020-10-08 07:29] LABS: Anion Gap 14 (12-20); Blood Urea Nitrogen 14 mg/dL (9-16); Calcium 8.8 mg/dL (8.4-10.2); Carbon Dioxide 20 mmol/L (22-29); Chloride 105 mmol/L (96-108); Creatinine Clr Calc Pharmacy 53.6; Estimated Glomerular Filt Rate > 60; Glucose Random 129 mg/dL (60-115); Potassium 4.1 mmol/l (3.3-5.1); Sodium 135 mmol/L (135-145)
[2020-10-08 07:35] VITALS: BP 153/74; PULSE 74; RESP 18; TEMP 36.2; O2SAT 96
[2020-10-08 10:01] LABS: Glucose, Whole Blood 129 mg/dL (60-115)
[2020-10-08 11:28] VITALS: BP 160/81; PULSE 78; RESP 18; TEMP 36.6; O2SAT 96
--- NOTE | 2020-10-08 11:52 | MHC.CM.PN ---
nurse rn urgent care note electronic medical record reviewed along with case discussed on multipe disciplianry rounds , per hospitalist i.r. unable to place gt,referred to [facility] surgeon via tiger text case discussed with him and he reported patient will need referral consult to [facility] , this was relayed to the hospitalist ischarge cardoza -patien upn discharge he will return back to the [facility]
[2020-10-08] MEDS: Famotidine/PF 20 MG/2 ML VIAL IVPUSH (12:21)
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
--- NOTE | 2020-10-08 12:59 | HO.PM.IMPN ---
Subjective Subjective Date of Service: 10/08/20 Interval History: patient offers no new complaints denies abdominal pain no nausea, eager to have a G-tube placed and be discharged, blood pressure running high. Review of Systems General no headache , no dizziness, no fever. CVS no chest pain, no palpitation. Respiratory no cough, no shortness of breath. Gastrointestinal no nausea, no vomiting, no abdominal pain Physical Exam Vital Signs: Vital Signs: Last Vital Signs Temp 98 F 10/08/20 11:28 Pulse 78 10/08/20 11:28 Resp 18 10/08/20 11:28 BP 160/81 H 10/08/20 11:28 Pulse Ox 96 10/08/20 11:28 Body Mass Index 26.7 General patient resting comfortably in no acute distress. Neck supple no JVD. CVS regular rate rhythm, Respiratory lungs clear to auscultation, no respiratory distress Gastrointestinal abdomen soft, nontender, bowel sounds audible Extremities no clubbing cyanosis or edema. good peripheral pulses Neuro awake alert x3 Skin no rash Objective Data Current Medications Generic Name Dose Route Start Last Admin Trade Name Freq PRN Reason Stop Dose Admin Acetaminophen 650 mg 10/05/20 19:43 Acetaminophen 325 Mg Tablet PO Q6H PRN Pain, Mild (Pain Scale 1-3) Bupropion HCl 150 mg 10/07/20 09:00 10/08/20 12:21 Bupropion Hcl Xl 150 Mg Tab.Er.24h PO Not Given DAILY VARUN Famotidine 20 mg 10/06/20 09:00 10/08/20 12:21 Famotidine/Pf 20 Mg/2 Ml Vial IVPUSH 20 mg DAILY VARUN Administration Gabapentin 200 mg 10/06/20 11:30 10/08/20 12:21 Gabapentin 100 Mg Capsule PO Not Given BID VARUN Sodium Chloride 1,000 mls @ 80 mls/hr 10/05/20 19:43 10/08/20 12:30 Ns IVCONT 100 mls/hr .[id number] VARUN Administration Levothyroxine Sodium 25 mcg 10/07/20 06:30 10/08/20 06:06 Levothyroxine Sodium 25 Mcg Tablet PO Not Given DAILY@0630 VARUN Morphine Sulfate 3 mg 10/07/20 08:58 10/07/20 09:45 Morphine Sulfate 4 Mg/Ml Cartridge IVPUSH 3 mg Q4H PRN Administration Pain, Severe (Pain Scale 7-10) Ondansetron HCl 4 mg 10/05/20 19:43 10/06/20 08:58 Ondansetron Hcl 4 Mg/2 Ml Vial IVPUSH 4 mg Q8H PRN Administration Nausea and Vomiting Oxycodone HCl 5 mg 10/06/20 11:24 Oxycodone Hcl Immed Release 5 Mg Tablet PO Q4H PRN Pain (Scale Score 7-10) Pharmacy Consult 1 each 10/05/20 16:35 Consult Rx Perform Med Rec MISCELLANE ONCE PRN Consult order Sertraline HCl 75 mg 10/06/20 11:30 10/08/20 12:21 Sertraline Hcl 50 Mg Tablet PO Not Given DAILY VARUN Sodium Chloride 3 ml 10/06/20 00:00 10/08/20 12:21 0.9 % Sodium Chloride Flush 3 Ml Syringe IVFLUSH Not Given QSHIFT VARUN Labs CBC & Chem 7: 10/05/20 17:05 10/08/20 06:20 Assessment and Plan (1) Adenocarcinoma of esophagus: Status: Acute (2) Dysphagia: Status: Acute (3) NIDDY (non-insulin dependent diabetes mellitus in young): Status: Acute (4) BPH (benign prostatic hyperplasia): Status: Acute (5) Depression: Status: Acute (6) Hypothyroid: Status: Acute (7) Neuropathy: Status: Acute (8) HTN (hypertension), benign: Status: Acute (9) Urinary catheter in place: Status: Acute Assessment and Plan: 80-year-old gentleman recently diagnosed to have 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 Dysphagia due to esophageal stricture related to poorly diff.adeno carcinoma of esophagus will continue IV fluids, NPO with sips of clear liquids, and medicines crushed in applesauce, as tolerated,cont. IV morphine prn, for abdominal discomfort continue anti emetics, IV Pepcid, IR to place PEG tube on Thursday, also consulted general surgery Dr. Talamantes case discussed with him if IR is unable to do feeding tube placement than Dr. Talamantes will place a feeding gastrostomy or jejunostomy tube. stable electrolytes and renal function. Hypothyroidism continue Synthroid crushed in applesauce. History of BPH with chronic indwelling Avila catheter continue Avila care. Non insulin dependent diabetes mellitus on insulin blood sugars are within desired range therefore will check blood sugars twice daily and hold off on insulin due to NPO. Neuropathy likely related to diabetes will continue gabapentin twice daily patient takes it 3 times a day. Hypertension BP noted to be elevated will resume Norvasc home dose 2.5 mg daily Depression will continue Zoloft and Wellbutrin. Code status DNR DNI DVT prophylaxis with compression boots
[2020-10-08 14:49] VITALS: BMI 26.7
--- NOTE | 2020-10-08 14:53 | MHC.CLN ---
TF TO BE PLACED; RECOMMEND GLUCERNA AT MAX GOAL RATE 80CC/HR WITH 240CC FREE WATER FLUSHES Q SHIFT TO PROVIDE 1920KCALS (25KCALS/KG), 80G PROTEIN (1.0G/KG), 2358CC TOTAL WATER FROM FORMULA AND FLUSHES (30CC/KG) MONITOR RESIDUALS, TOLERANCE, AND LYTES
--- NOTE | 2020-10-08 15:33 | HP_ITS ---
DATE OF SERVICE: 10/05/2020 CHIEF COMPLAINT: Dysphagia. HISTORY OF PRESENTING ILLNESS: This is a very pleasant 80-year-old gentleman, resident of [facility], being followed by Dr. Frederic Bone, who for the last couple months was having difficulty swallowing and abdominal pain soon after eating. He also complained of some heartburn and nausea for which he underwent an upper endoscopy by Dr. Astorga recently. He was noted to have a malignant-appearing stricture with ulceration and friable tissue. There was also patchy gastric erythema noted. Biopsies were taken that came back positive for poorly differentiated adenocarcinoma arising in a background of Anderson's esophagus with high-grade dysplasia and ulcer. The patient subsequently is being followed by Dr. Caroline Alonso from Oncology where the patient presented today for a followup and complained of difficulties keeping food down. Since soon after the eating, patient developed abdominal pain and then he vomits. He has lost 6 pounds in last few weeks. Therefore, the patient is being admitted to [facility] due to persistent symptoms of dysphagia, abdominal pain, and inability to keep the food down. The patient at the present time denies any symptoms of headache, no fever chills. He denies any dizziness. The patient is chronically wheelchair-bound and has an indwelling Avila catheter. PAST MEDICAL HISTORY: Significant for: 1. Benign prostate hyperplasia with indwelling Avila catheter. 2. History of depression. 3. History of diabetes mellitus on insulin. 4. History of hypertension. 5. History of hypothyroidism. 6. History of neuropathy. 7. History of lumbar radiculopathy. 8. History of post herpetic neuralgia. FAMILY HISTORY: The patient's mother is diseased. She has history of heart disease. The patient's father is diseased, had history of heart attack. There is no family history of esophageal or stomach cancer. ALLERGIES: THE PATIENT IS ALLERGIC TO AMOXICILLIN THAT CAUSES SWELLING. BEE STING CAUSES SWELLING. SHELLFISH CAUSES HIVES. TURKEY CAUSES SWELLING. MEDICATIONS: On admission are amlodipine 2.5 mg daily, bupropion 50 mg b.i.d., gabapentin 100 mg at bedtime, Lantus insulin 20 units daily and Lantus insulin lispro sliding scale, levothyroxine 25 daily, multivitamin 1 p.o. daily, omeprazole 40 mg daily, and Zoloft 75 mg p.o. daily. REVIEW OF SYSTEMS: FARM REPORTER: The patient denies any headache or dizziness. CVS: The patient denies chest pain, no palpitation. RESPIRATORY: He denies cough, no sputum production, no respiratory distress. MUSCULOSKELETAL: He denies any pain. Rest of all other system reviewed and are negative. SOCIAL HISTORY: The patient is a resident of a [facility]. He is wheelchair bound. No history of smoking or alcohol abuse. No history of illicit drug abuse. ASSESSMENT AND PLAN: An 80-year-old gentleman, resident of [facility], recently diagnosed to have poorly differentiated adenocarcinoma being followed by oncologists as well as Thoracic Surgery and Gastroenterology. The patient has been referred to emergency room by Dr. Caroline Alonso due to persistent dysphagia, weight loss. PROBLEM LIST: 1. Newly diagnosed poorly differentiated adenocarcinoma with difficulty swallowing and inability to keep food down. The patient will be admitted to medical floor, will be placed on IV fluids. We will follow patient's CBC, electrolytes closely. A chest x-ray showed no acute abnormality. The patient recently underwent a CAT scan of the abdomen and pelvis on September 27 that showed that the patient has diffuse mural thickening involving the distal esophagus. Extensive abnormal retroperitoneal, retrocrural and perigastric lymph nodes. There were no liver lesions noted. Dr. Alonso is making arrangements for placement of G-tube since the patient has esophageal stricture, it is deferred to culture to go from above. Therefore, we will discuss with General surgery versus Interventional Radiology for G-tube placement. The patient will be treated with antiemetics pain medications. 2. History of diabetes mellitus since patient is n.p.o. on clear liquids only. We will hold off on scheduled Lantus. The patient's blood sugars will be checked periodically. 3. History of hypothyroidism. The patient is on low-dose Synthroid that will be switched to IV levothyroxine since patient is unable to keep food down. 4. History of hypertension. The patient's blood pressure is low normal range, therefore we will hold amlodipine. 5. History of depression. The patient is on low-dose antidepressant medications, which will be held at this time and will be resumed promptly as soon as the G-tube is placed. 6. Code status: The patient wishes to be a DNR. 7. Deep vein thrombosis prophylaxis. The patient will be placed on compression stockings. MD CIARAN Oneal/DUNIA / [phone]
[2020-10-08 16:00] VITALS: BP 163/74; PULSE 76; RESP 18; TEMP 36.4; O2SAT 97
[2020-10-08 17:03] LABS: Glucose, Whole Blood 111 mg/dL (60-115)
[2020-10-08 19:42] VITALS: BP 175/84; PULSE 76; RESP 17; TEMP 36.7; O2SAT 97
[2020-10-08] MEDS: Acetaminophen 325 MG TABLET 650 MG PO (19:57)
[2020-10-08] MEDS: Gabapentin 100 MG CAPSULE 200 MG PO (19:57)
[2020-10-08] MEDS: ondansetron HCL 4 MG/2 ML VIAL IVPUSH (20:04)
[2020-10-08 21:51] LABS: Glucose, Whole Blood 115 mg/dL (60-115)
[2020-10-09] VITALS (9 sets, daily range): BP systolic 138–176; BP diastolic 57–81; PULSE 66–76; RESP 16–20; TEMP 35.7–36.8; O2SAT 94–99
--- NOTE | 2020-10-09 07:09 | PC.NURSE ---
noted that this patients ivf was in the discontinue status at start of my shift, note sent to covering hospitalist questioning to renew order or was it ordered to stop. explained patient status and that he was NPO. Answer received was to keep ivf stopped for now, reclarified his response. report given to day rn to follow up
--- NOTE | 2020-10-09 08:06 | HO.PM.IMPN ---
Subjective Subjective Date of Service: 10/09/20 Interval History: seen and examined no complaints pain minimal denies n/v ROS General - no fevers or chills Cardiovascular - no chest pain Respiratory - no shortness of breath or cough Abdominal- minimal pain, nausea, vomiting, diarrhea Physical Exam Vital Signs: Vital Signs: Last Vital Signs Temp 97.8 F 10/09/20 07:28 Pulse 66 10/09/20 07:28 Resp 17 10/09/20 07:28 BP 154/57 H 10/09/20 07:28 Pulse Ox 98 10/09/20 07:28 Body Mass Index 26.7 General - no acute distress, appears comfortable Cardiovascular - regular rate and rhythm, S1-S2 Lungs - normal respiratory effort, clear to auscultation bilaterally, no wheezing Abdomen - soft, nontender, no rebound regarding Extremities - no edema bilaterally Neuro - awake and alert, no focal deficits Objective Data Current Medications Generic Name Dose Route Start Last Admin Trade Name Freq PRN Reason Stop Dose Admin Acetaminophen 650 mg 10/05/20 19:43 10/08/20 19:57 Acetaminophen 325 Mg Tablet PO 650 mg Q6H PRN Administration Pain, Mild (Pain Scale 1-3) Amlodipine Besylate 2.5 mg 10/08/20 13:15 10/08/20 15:35 Amlodipine Besylate 2.5 Mg Tablet PO Not Given DAILY PENDING SALE TO [facility] Protocol Bupropion HCl 150 mg 10/07/20 09:00 10/08/20 12:21 Bupropion Hcl Xl 150 Mg Tab.Er.24h PO Not Given DAILY PENDING SALE TO [facility] Famotidine 20 mg 10/06/20 09:00 10/08/20 12:21 Famotidine/Pf 20 Mg/2 Ml Vial IVPUSH 20 mg DAILY VARUN Administration Gabapentin 200 mg 10/06/20 11:30 10/08/20 19:57 Gabapentin 100 Mg Capsule PO 200 mg BID VARUN Administration Levothyroxine Sodium 25 mcg 10/07/20 06:30 10/09/20 06:23 Levothyroxine Sodium 25 Mcg Tablet PO Not Given DAILY@0630 PENDING SALE TO [facility] Morphine Sulfate 3 mg 10/07/20 08:58 10/07/20 09:45 Morphine Sulfate 4 Mg/Ml Cartridge IVPUSH 3 mg Q4H PRN Administration Pain, Severe (Pain Scale 7-10) Ondansetron HCl 4 mg 10/05/20 19:43 10/08/20 20:04 Ondansetron Hcl 4 Mg/2 Ml Vial IVPUSH 4 mg Q8H PRN Administration Nausea and Vomiting Oxycodone HCl 5 mg 10/06/20 11:24 Oxycodone Hcl Immed Release 5 Mg Tablet PO Q4H PRN Pain (Scale Score 7-10) Pharmacy Consult 1 each 10/05/20 16:35 Consult Rx Perform Med Rec MISCELLANE ONCE PRN Consult order Sertraline HCl 75 mg 10/06/20 11:30 10/08/20 12:21 Sertraline Hcl 50 Mg Tablet PO Not Given DAILY VARUN Sodium Chloride 3 ml 10/06/20 00:00 10/09/20 00:05 0.9 % Sodium Chloride Flush 3 Ml Syringe IVFLUSH Not Given QSHIFT VARUN Labs CBC & Chem 7: 10/05/20 17:05 10/08/20 06:20 Assessment and Plan (1) Adenocarcinoma of esophagus: Status: Acute Assessment and Plan: This is a 80 yo M who is a resident of the [facility] who was recently diagnosed with poorly differentiated adenoCa of the esophagus and is now admitted for dysphagia secondary to this. 1.Dysphagia secondary to esophageal stricture from poor differentiated plan for feeding tube placement by IR tomorrow (Gen Surg on board in case IR unable to do it) continue IVF and monitor lytes continue IV pepcid continue PO pills crushed in apple sauce PRN anti-emetics and PRN pain meds 2. Hypothyroidism synthroid 3. HTN nrovasc 4. Depression continue baseline meds DNR/DNI DVT pptx, mechanical device
[2020-10-09] MEDS: Famotidine/PF 20 MG/2 ML VIAL IVPUSH (08:16)
[2020-10-09 08:18] LABS: Glucose, Whole Blood 96 mg/dL (60-115)
[2020-10-09] MEDS: 0.9 % Sodium Chloride Flush 3 ML SYRINGE IVFLUSH ×2 (08:19→16:03)
[2020-10-09] MEDS: Dextrose 5 % and 0.9 % NaCl 1,000 ML 80 ML IVCONT ×2 (08:46→21:42)
--- NOTE | 2020-10-09 10:17 | MHC.CM.PN ---
NURSE WASTEWATER TREATMENT PLANT SUPERVISOR NOTE [id number] MEDICAL RECORD REVIEWED , PER DOCUMENTATION PATIENT RECENTLY DIAGNOSED WITH ADENOCARCINOMA OF THE ESOPHAGUS ADMITTED FROM THE [facility] TO DYSPHAGIA AD CAN NOT TAKE IN ANY SOLID OR LIQUIDS PATIENT IS SCHEDUED FOR INTERVENTIONAL RADIOLOGY FOR FEEDING TUBE TO BE PACED BY INTERVENTIONAL RADIOGY TOMORROW (GENERAL SURGEON ON BOARD) DISCHARGE PLAN- RETURN BACK TO THE [facility] TELEPHONE CA TO THE [facility] SPOKE WITH MANJULA BRENNAN ON WHERE PATIENT RESIDES , SHE WILL HAVE THE ASSISTANCE NURSING RUBBER EXTRUSION MACHINE OPERATOR CALL ME BACK. REGARDING ANY BARRIERS IN RETURNING BACK WITH FEEDING TUBE FOR ENTRAL FEEDS
[2020-10-09 11:59] LABS: Glucose, Whole Blood 155 mg/dL (60-115)
[2020-10-09 20:13] LABS: Glucose, Whole Blood 175 mg/dL (60-115)
[2020-10-09 21:23] LABS: Glucose, Whole Blood 185 mg/dL (60-115)
--- NOTE | 2020-10-09 21:27 | PC.NURSE ---
P-patient called stating he feels like he is going to pass-out,weak,feels dizzy on and off I-assessed BP 169/78 ,pulse 71,placed on 2 liters of oxygen ,sat 99%,temp 97.0 ,dr. Villagomez notified,BSchecked E-will monitor
--- NOTE | 2020-10-09 21:43 | PC.NURSE ---
patient states he feels better,feels oxygen is helping
--- NOTE | 2020-10-10 | XR_ITS ---
EXAMINATION: XR CHEST CLINICAL INFORMATION: NG tube placement COMPARISON: None TECHNIQUE: Frontal view of the chest was obtained. 9:41 PM FINDINGS: Nasogastric tube is looped in the mid thoracic esophagus with the distal tip pointing cephalad. Catheter should be repositioned. Lungs are clear. There is no pleural effusion. Cardiac and mediastinal contours are unchanged. XR/XR chest 1V IMPRESSION: Nasogastric tube looped in the mid thoracic esophagus. This critical result was discussed with Kaz Myers on 10/10/2020, 10:00 PM and it was ascertained that the content and urgency of the report was understood at the time of direct communication.
[2020-10-10 06:48] LABS: Hematocrit 32.8 % (42-52); Hemoglobin 11.2 g/dl (14.0-18.0); Mean Corpuscular HGB Conc 34.1 g/dl (31.0-36.0); Mean Corpuscular Hemoglobin 28.9 pg (27.0-33.0); Mean Corpuscular Volume 84.8 fL (80-98); Mean Platelet Volume 8.9 fL (9.4-12.4); Platelet Count 359 X10*3/uL (160-400); Red Blood Count 3.87 X10*6/uL (4.60-5.80); Red Cell Distribution Width 13.6 % (11.0-16.0)
[2020-10-10 07:20] LABS: Anion Gap 11 (12-20); Blood Urea Nitrogen 12 mg/dL (9-16); Calcium 8.7 mg/dL (8.4-10.2); Carbon Dioxide 22 mmol/L (22-29); Chloride 105 mmol/L (96-108); Creatinine Clr Calc Pharmacy 57.6; Estimated Glomerular Filt Rate > 60; Glucose Random 227 mg/dL (60-115); Potassium 3.4 mmol/l (3.3-5.1); Sodium 135 mmol/L (135-145)
[2020-10-10 07:47] VITALS: BP 149/67; PULSE 68; RESP 16; TEMP 36.2; O2SAT 98
--- NOTE | 2020-10-10 11:33 | XR_ITS ---
EXAMINATION: XR CHEST CLINICAL INFORMATION: Nasogastric tube placement. COMPARISON: 10/05/2020 chest radiograph. TECHNIQUE: Frontal view of the chest was obtained. FINDINGS: Support devices: Interval placement of nasogastric tube. The tip is not included on the study, but the side-port is seen at the level the mid gastric lumen. The lungs are clear. The heart and mediastinal structures are unremarkable. XR/XR chest 1V IMPRESSION: 1. Nasogastric tube tip likely in the distal gastric lumen. 2. No acute cardiopulmonary process.
[2020-10-10 11:36] VITALS: BP 164/98; PULSE 81; RESP 18; TEMP 36.2; O2SAT 99
[2020-10-10 11:43] LABS: Glucose, Whole Blood 222 mg/dL (60-115)
--- NOTE | 2020-10-10 11:48 | HO.PM.IMPN ---
Subjective Subjective Date of Service: 10/10/20 Interval History: seen and examined this AM no complaints this AM, awaiting his procedure tomorrow Physical Exam Vital Signs: Vital Signs: Last Vital Signs Temp 97.8 F 10/09/20 07:28 Pulse 66 10/09/20 07:28 Resp 17 10/09/20 07:28 BP 154/57 H 10/09/20 07:28 Pulse Ox 98 10/09/20 07:28 Body Mass Index 26.7 General - no acute distress, appears comfortable Cardiovascular - regular rate and rhythm, S1-S2 Lungs - normal respiratory effort, clear to auscultation bilaterally, no wheezing Abdomen - soft, nontender, no rebound regarding Extremities - no edema bilaterally Neuro - awake and alert, no focal deficits Objective Data Current Medications Generic Name Dose Route Start Last Admin Trade Name Freq PRN Reason Stop Dose Admin Acetaminophen 650 mg 10/05/20 19:43 10/08/20 19:57 Acetaminophen 325 Mg Tablet PO 650 mg Q6H PRN Administration Pain, Mild (Pain Scale 1-3) Amlodipine Besylate 2.5 mg 10/08/20 13:15 10/09/20 08:19 Amlodipine Besylate 2.5 Mg Tablet PO Not Given DAILY VARUN Protocol Bupropion HCl 150 mg 10/07/20 09:00 10/09/20 08:19 Bupropion Hcl Xl 150 Mg Tab.Er.24h PO Not Given DAILY VARUN Famotidine 20 mg 10/06/20 09:00 10/09/20 08:16 Famotidine/Pf 20 Mg/2 Ml Vial IVPUSH 20 mg DAILY VARUN Administration Gabapentin 200 mg 10/06/20 11:30 10/09/20 21:20 Gabapentin 100 Mg Capsule PO Not Given BID VARUN Dextrose/Sodium Chloride 1,000 mls @ 80 mls/hr 10/09/20 08:15 10/09/20 21:42 D5ns IVCONT 80 mls/hr .[id number] VARUN Administration Levothyroxine Sodium 25 mcg 10/07/20 06:30 10/10/20 05:33 Levothyroxine Sodium 25 Mcg Tablet PO Not Given DAILY@0630 VARUN Morphine Sulfate 3 mg 10/07/20 08:58 10/07/20 09:45 Morphine Sulfate 4 Mg/Ml Cartridge IVPUSH 3 mg Q4H PRN Administration Pain, Severe (Pain Scale 7-10) Ondansetron HCl 4 mg 10/05/20 19:43 10/08/20 20:04 Ondansetron Hcl 4 Mg/2 Ml Vial IVPUSH 4 mg Q8H PRN Administration Nausea and Vomiting Oxycodone HCl 5 mg 10/06/20 11:24 Oxycodone Hcl Immed Release 5 Mg Tablet PO Q4H PRN Pain (Scale Score 7-10) Pharmacy Consult 1 each 10/05/20 16:35 Consult Rx Perform Med Rec MISCELLANE ONCE PRN Consult order Sertraline HCl 75 mg 10/06/20 11:30 10/09/20 08:19 Sertraline Hcl 50 Mg Tablet PO Not Given DAILY VARUN Sodium Chloride 3 ml 10/06/20 00:00 10/10/20 00:08 0.9 % Sodium Chloride Flush 3 Ml Syringe IVFLUSH Not Given QSHIFT VARUN Labs CBC & Chem 7: 10/10/20 06:08 10/10/20 06:08 Assessment and Plan (1) Adenocarcinoma of esophagus: Status: Acute Assessment and Plan: This is a 80 yo M who is a resident of the [facility] who was recently diagnosed with poorly differentiated adenoCa of the esophagus and is now admitted for dysphagia secondary to this. 1.Dysphagia secondary to esophageal stricture from poor differentiated plan for IR guided feeding tube tomorrow. Per IR request -- NG insertion (completed, pending xr for proper placement), barium to be given tonight (IR clarifying timing and amount). continue IVF and monitor lytes continue IV pepcid continue PO pills crushed in apple sauce PRN anti-emetics and PRN pain meds 2. Hypothyroidism synthroid 3. HTN nrovasc 4. Depression continue baseline meds DNR/DNI DVT pptx, mechanical device called his niece per his request, went answered.
[2020-10-10] MEDS: Dextrose 5 % and 0.9 % NaCl 1,000 ML 80 ML IVCONT (12:10)
[2020-10-10] MEDS: Famotidine/PF 20 MG/2 ML VIAL IVPUSH (12:10)
[2020-10-10] MEDS: Morphine Sulfate 4 MG/ML CARTRIDGE 3 MG IVPUSH ×2 (13:51→21:16)
--- NOTE | 2020-10-10 14:19 | MHC.CM.PN ---
nurse child support case officerqual field manager medical record reviewed along with case discussed on multiple disciplinary rounds patient is confirmed to be having his feeding tube placed in intervention radiology tomorrow around 10;30 i tried to meet with patient x3 today and he has been sleeping , case discussed with [facility] nurse as well as staff nurse cherelle at the [facility]. (patient was i assit for all adls (bathing, dressing, he could stand and pivot but now needs i assit , he also needs one assit for toileting, at times he was juvencio t transfer to the wheelchair and out , but not now she also reported to me tht the [facility] was going to have the pvta van transport him to the pet scan , in[place] [facility] [place].. she als informed me that patient had just been placed at the [facility] 4 days before the covid broke out. ondina patient jatinice/hcp has child support case officerplant manager number. requested copy of hcp to be brought in to have on file the molst form completed paperwork on file
--- NOTE | 2020-10-10 14:23 | MHC.CLN ---
F/U TF TO BE PLACED TOMORROW RECOMMEND GLUCERNA START AT 20CC/HR INCREASE BY 10CC/HR Q 4 HRS TO MAX GOAL RATE 80CC/HR WITH 240CC FREE WATER FLUSHES Q SHIFT TO PROVIDE 1920KCALS (25KCALS/KG), 80G PROTEIN (1.0G/KG), 2358CC TOTAL WATER FROM FORMULA AND FLUSHES (30CC/KG) MONITOR RESIDUALS, TOLERANCE, AND LYTES
[2020-10-10 15:27] VITALS: BP 164/88; PULSE 82; RESP 18; TEMP 36.3; O2SAT 98
[2020-10-10 16:29] LABS: Glucose, Whole Blood 246 mg/dL (60-115)
[2020-10-10 18:12] LABS: MANUAL DIFF FLAG NO
[2020-10-10 18:14] LABS: Basophils Percent Auto 0.3 % (0-2); Eosinophils Absolute Auto 0.3 X10*3/uL (0.0-0.4); Hematocrit 35.6 % (42-52); Hemoglobin 12.1 g/dl (14.0-18.0); Imm Gran Abs Auto 0.07 X10*3/uL (0.00-0.03); Imm Gran Pct Auto 0.8 % (0.0-0.4); Lymphocytes Absolute Auto 1.2 X10*3/uL (1.2-4.9); Lymphocytes Percent Auto 12.8 % (20-40); Mean Corpuscular Hemoglobin 28.7 pg (27.0-33.0); Mean Corpuscular Volume 84.6 fL (80-98); Mean Platelet Volume 8.9 fL (9.4-12.4); Monocytes Absolute Auto 0.8 X10*3/uL (0.1-1.2); Monocytes Percent Auto 8.7 % (2-11); Neutrophils Absolute Auto 6.7 X10*3/uL (2.0-8.3); Neutrophils Percent Auto 74.4 % (45-73); Platelet Count 371 X10*3/uL (160-400); Red Blood Count 4.21 X10*6/uL (4.60-5.80); Red Cell Distribution Width 13.8 % (11.0-16.0)
[2020-10-10 18:19] LABS: INTERNATIONAL NORM RATIO 1.4 (0.9-1.1); Prothrombin Time 16.9 SEC (10.8-13.0)
[2020-10-10 18:22] LABS: Partial Thromboplastin Time 34.5 SEC (24.1-38.0)
[2020-10-10 18:53] VITALS: BP 135/71; PULSE 71; RESP 19; TEMP 36.3; O2SAT 98
[2020-10-10 22:59] VITALS: BP 152/87; PULSE 100; RESP 19; TEMP 36.9; O2SAT 96
--- NOTE | 2020-10-11 | XR_ITS ---
EXAMINATION: XR CHEST CLINICAL INFORMATION: NG tube insertion COMPARISON: 10/10/2020 TECHNIQUE: Frontal view of the chest was obtained. FINDINGS: Enteric tube tip lies in the region of the distal esophagus, with side-port at the level of the midesophagus. The tube is no longer looped back upon itself. Lungs are hypoinflated. No focal consolidation is seen. Minimal bibasilar atelectasis is suspected. No evidence of pneumothorax, pleural effusion, or pulmonary edema. The cardiomediastinal contour is unremarkable. No acute osseous findings are seen. XR/XR chest 1V IMPRESSION: NG tube tip in the region of the distal esophagus; advancement recommended.
[2020-10-11] MEDS: Dextrose 5 % and 0.9 % NaCl 1,000 ML 80 ML IVCONT (01:10)
[2020-10-11 03:30] VITALS: BP 111/72; PULSE 77; RESP 19; TEMP 36.1; O2SAT 97
[2020-10-11 07:02] LABS: Hemoglobin 12.1 g/dl (14.0-18.0); Mean Corpuscular HGB Conc 33.6 g/dl (31.0-36.0); Mean Corpuscular Hemoglobin 28.7 pg (27.0-33.0); Mean Corpuscular Volume 85.5 fL (80-98); Mean Platelet Volume 8.8 fL (9.4-12.4); Platelet Count 366 X10*3/uL (160-400); Red Blood Count 4.21 X10*6/uL (4.60-5.80); Red Cell Distribution Width 13.8 % (11.0-16.0); White Blood Count 9.1 X10*3/uL (4.8-10.8)
[2020-10-11 07:44] VITALS: BP 158/85; PULSE 79; RESP 18; TEMP 37; O2SAT 98
[2020-10-11 09:43] LABS: Glucose, Whole Blood 204 mg/dL (60-115)
[2020-10-11] MEDS: Morphine Sulfate Oral Sol 10 MG/5 ML SOLUTION 5 MG PO (09:55)
--- NOTE | 2020-10-11 11:44 | MHC.CM.PN ---
SURGICAL PROCEDURE CANCELLED. PATIENT DOES NOT WANT THIS INTERVENTION. AWAITING ONCOLOGY CONSULT FOLLOWED BY DISCUSSION ABOUT HOSPICE CARE GOALS. AT THE TIME OF THIS NOTE, IT IS UNCLEAR IF PATIENT CAN RETURN TO THE [facility] WITH HOSPICE SERVICES. CASE MANAGEMENT FOLLOWING.
--- NOTE | 2020-10-11 12:00 | MHC.CM.PN ---
PATIENT HAS CHOSEN TO RETURN TO THE [facility] UNDER HOSPICE SERVICES. REFERRAL PLACED TO [facility] LANGUAGE ASSISTANT MANJULA ([phone]) AWARE AND AGREES WITH PLAN. SHE ASKS FOR A COVID SWAB AND RESULTS MANJULA ANTICIPATES PATIENT RETURN TOMORROW 10/12/2020. SHE IS ASKING FOR PROGRESS TOWARDS THIS PLAN. MANJULA IS AVAILABLE M-F 07:00 - 15:00 IMM 10/11 IN CHART.
[2020-10-11 15:33] VITALS: BP 149/74; PULSE 78; RESP 18; TEMP 36.3; O2SAT 96
--- NOTE | 2020-10-11 18:29 | PM.EVENT ---
Event Note Date of Service: 10/11/20 Event Note: Daily progress note in brief Subjective Patient seen multiple times today and multiple discussions with him about his wishes. He was unable to tolerate NG placement x2 yesterday. Ultimately he decided upon transition to hospice. Reports he would like to try to eat some Jell-O /ice cream. Objective Vitals last documented General not in any acute distress Cardiovascular S1-S2 Lungs clear Abdomen soft nontender Neuro nonfocal, alert and oriented x3, appropriate insight assessment and plan 80-year-old male with a diagnosis of esophageal cancer Plan was for him to have feeding tube placement by IR today but unfortunately he was unable to tolerate the preprocedural NG tube and barium that was requested by IR. After multiple discussions with the patient who was able to talk with his knees, he has decided upon transitioning to hospice and forego feeding tube placement. He would like to eat for comfort. plan will be for discharge tomorrow back to the [facility] under hospice services.
[2020-10-11 18:57] VITALS: BP 160/70; PULSE 69; RESP 19; TEMP 36.7; O2SAT 98
[2020-10-11 20:47] LABS: Glucose, Whole Blood 257 mg/dL (60-115)
[2020-10-11 23:11] VITALS: BP 149/70; PULSE 78; RESP 19; TEMP 36.7; O2SAT 98
[2020-10-12 06:17] LABS: Hematocrit 34.7 % (42-52); Hemoglobin 11.8 g/dl (14.0-18.0); Mean Corpuscular Hemoglobin 28.7 pg (27.0-33.0); Mean Corpuscular Volume 84.4 fL (80-98); Mean Platelet Volume 8.9 fL (9.4-12.4); Platelet Count 347 X10*3/uL (160-400); Red Blood Count 4.11 X10*6/uL (4.60-5.80); Red Cell Distribution Width 13.8 % (11.0-16.0); White Blood Count 9.5 X10*3/uL (4.8-10.8)
[2020-10-12 07:52] VITALS: BP 148/80; PULSE 74; RESP 18; TEMP 36.2; O2SAT 98
--- NOTE | 2020-10-12 09:15 | PM.DS ---
DS: Providers Provider Date of admission: 10/05/20 16:53 Primary care physician: Frederic Bone MD Consults: 10/08/20 09:57 Consult to General Surgery Routine Consulting Provider: Isaias Talamantes Reason for consultation: sbo Has provider been notified: No DS: Diagnosis Discharge Diagnosis (1) Adenocarcinoma of esophagus: Status: Acute DS: Medications Discharge Medications Home Medications: Home Medications Medication Instructions Recorded Confirmed gabapentin 100 mg capsule 100 mg PO DAILY@1300 09/12/20 10/05/20 insulin glargine 100 unit/mL 20 unit SUBCUT DAILY ml 09/12/20 10/05/20 subcutaneous solution levothyroxine 25 mcg tablet 25 mcg PO DAILY 09/12/20 10/05/20 bupropion HCl [Wellbutrin SR] 150 mg PO DAILY 10/05/20 10/05/20 cholecalciferol (vitamin D3) 25 mcg PO DAILY 10/05/20 10/05/20 gabapentin 200 mg PO BID 10/05/20 10/05/20 insulin lispro 1 sliding scale dose SUBCUT TID 10/05/20 10/05/20 multivitamin with minerals 1 tab PO DAILY 10/05/20 10/05/20 oxycodone 5 mg PO Q4H PRN 10/05/20 10/05/20 pantoprazole 40 mg PO DAILY 10/05/20 10/05/20 sertraline [Zoloft] 75 mg PO DAILY 10/05/20 10/05/20 Previous Rx's Medication Instructions Recorded morphine 5 mg PO Q4H PRN #1 ml 10/12/20 DS: Summary Hospital Course Hospital Course: Patient was started on IVF and IR was consulted for placement of feeding tube. IR requested NG tube and barium placement the night before the procedure. Unfortunately despite NG placement, patient was unable to tolerate it and removed it himself twice. General surgery was on also on board in case IR guided placement was not possible. The patient was offered offered surgical placement of feeding tube but he opted against this as well. Ultimately, after he spoke with his niece, Salma, he elected to transition to hospice care. Diet for ordered for comfort. A MOLST form has been filled out prior to transfer back. His pain has been controlled with oral morphine concentration. Time Spent with Patient Time attestation: Total time spent providing and/or coordinating discharge services: Physical Exam Vital Signs: Vital Signs: Last Vital Signs Temp 97.2 F 10/12/20 07:52 Pulse 74 10/12/20 07:52 Resp 18 10/12/20 07:52 BP 148/80 H 10/12/20 07:52 Pulse Ox 98 10/12/20 07:52 Body Mass Index 26.7 Gen - not any acute distress CVS - S1S2 Lungs - clear Abd - soft / nt,nd Neuro - non-focal DS: Data Data Completed and Pending Labs on day of discharge: Laboratory Last Values WBC 9.5 X10*3/uL (4.8-10.8) 10/12/20 05:50 RBC 4.11 X10*6/uL (4.60-5.80) L 10/12/20 05:50 Hgb 11.8 g/dl (14.0-18.0) L 10/12/20 05:50 Hct 34.7 % (42-52) L 10/12/20 05:50 MCV 84.4 fL (80-98) 10/12/20 05:50 MCH 28.7 pg (27.0-33.0) 10/12/20 05:50 MCHC 34.0 g/dl (31.0-36.0) 10/12/20 05:50 RDW 13.8 % (11.0-16.0) 10/12/20 05:50 Plt Count 347 X10*3/uL (160-400) 10/12/20 05:50 MPV 8.9 fL (9.4-12.4) L 10/12/20 05:50 Immature Gran % (Auto) 0.8 % (0.0-0.4) H 10/10/20 17:46 Neut % (Auto) 74.4 % (45-73) H 10/10/20 17:46 Lymph % (Auto) 12.8 % (20-40) L 10/10/20 17:46 [place] % (Auto) 8.7 % (2-11) 10/10/20 17:46 Eos % (Auto) 3.0 % (0-4) 10/10/20 17:46 Baso % (Auto) 0.3 % (0-2) 10/10/20 17:46 Lymph # (Auto) 1.2 X10*3/uL (1.2-4.9) 10/10/20 17:46 [place] # (Auto) 0.8 X10*3/uL (0.1-1.2) 10/10/20 17:46 Eos # (Auto) 0.3 X10*3/uL (0.0-0.4) 10/10/20 17:46 Baso # (Auto) 0.0 X10*3/uL (0.0-0.2) 10/10/20 17:46 Abs Immat Gran (auto) 0.07 X10*3/uL (0.00-0.03) H 10/10/20 17:46 Absolute Neuts (auto) 6.7 X10*3/uL (2.0-8.3) 10/10/20 17:46 Absolute Nucleated RBC 0.000 X10*3/uL (0.0-0.012) 10/12/20 05:50 Nucleated RBC % (auto) 0.0 /100WBC (0.0-0.2) 10/12/20 05:50 PT 16.9 SEC (10.8-13.0) H 10/10/20 17:46 INR 1.4 (0.9-1.1) H 10/10/20 17:46 APTT 34.5 SEC (24.1-38.0) 10/10/20 17:46 Sodium 135 mmol/L (135-145) 10/10/20 06:08 Potassium 3.4 mmol/l (3.3-5.1) 10/10/20 06:08 Chloride 105 mmol/L (96-108) 10/10/20 06:08 Carbon Dioxide 22 mmol/L (22-29) 10/10/20 06:08 Anion Gap 11 (12-20) L 10/10/20 06:08 BUN 12 mg/dL (9-16) 10/10/20 06:08 Creatinine 0.94 mg/dL (0.5-1.4) 10/10/20 06:08 Estim Creat Clear Calc 57.6 10/10/20 06:08 Estimated GFR > 60 10/10/20 06:08 POC Glucose 257 mg/dL (60-115) H 10/11/20 20:40 Random Glucose 227 mg/dL (60-115) H D 10/10/20 06:08 Calcium 8.7 mg/dL (8.4-10.2) 10/10/20 06:08 Total Bilirubin 0.7 mg/dL (0.0-1.0) 10/05/20 17:06 Direct Bilirubin 0.3 mg/dL (0.0-0.5) 10/05/20 17:06 AST 17 U/L (5-37) 10/05/20 17:06 ALT 17 U/L (0-40) 10/05/20 17:06 Alkaline Phosphatase 67 U/L (39-117) 10/05/20 17:06 Total Protein 7.6 g/dL (6.5-8.0) 10/05/20 17:06 Albumin 3.8 g/dL (3.5-5.0) 10/05/20 17:06 COVID-19 (АЛЕКСАНДР) Negative (Negative) 10/05/20 17:06 COVID-19 Clin Com See Note 10/05/20 17:06 Discharge Plan Discharge Patient Disposition: Hospice - Medical Facility Referrals: Frederic Bone MD [Primary Care Provider] - Discharge Medications: New morphine 10 mg/5 mL Solution 5 mg PO Q4H PRN (Reason: Pain, Severe (Pain Scale 7-10)) Qty: 1 RF: 0 Continued insulin lispro 100 unit/mL Solution 1 sliding scale dose SUBCUT TID RF: 0 levothyroxine 25 mcg tablet 25 mcg PO DAILY RF: 0 Discontinued bupropion HCl [Wellbutrin SR] 150 mg Tablet Sustained-Release 12 Hr 150 mg PO DAILY RF: 0 pantoprazole 40 mg Tablet,Delayed Release (Dr/Ec) 40 mg PO DAILY RF: 0 gabapentin 100 mg Capsule 200 mg PO BID RF: 0 multivitamin with minerals Tablet 1 tab PO DAILY RF: 0 sertraline [Zoloft] 50 mg Tablet 75 mg PO DAILY RF: 0 oxycodone 5 mg Tablet 5 mg PO Q4H PRN (Reason: Pain (Scale Score 7-10)) RF: 0 cholecalciferol (vitamin D3) 25 mcg (1,000 unit) Tablet 25 mcg PO DAILY RF: 0 Lantus U-100 Insulin 100 unit/mL solution 20 unit subcut DAILY RF: 0 gabapentin 100 mg capsule 100 mg PO DAILY@1300 RF: 0 Discharge Orders: Discharge Order (Routine); Ordered 10/12/20 Ordered By: Mg Sprague Diet: other Activity on Discharge: As tolerated Visit Report Forms: Patient Portal Discharge page Care Plan Goals: To have Hospice treatment at [facility] Health Concerns: Esophageal Cancer Plan of Treatment: Esophageal Cancer - hospice care Allow food for comfort
--- NOTE | 2020-10-12 09:48 | MHC.CM.PN ---
Patient has been medically cleared for dc today to return to [facility] with [facility]. Patient will return to [facility] today at 1 PM, via [facility]. Patient and family/Niece/Salma are both aware of and in agreement with the dc plan. Last IMM addressed on 10/11/20. DC summary has been successfully faxed to Dwight at [facility] and uploaded into [employer]. Chrissie from [employer] at [phone] has been informed of the dc time.
[2020-10-12 10:39] LABS: COVID-19 Test Negative (Negative); IDNOW Serial# 9DD0AD1C
[2020-10-12 11:16] LABS: Glucose, Whole Blood 205 mg/dL (60-115)
== END 2020-10-12 13:12 | disposition hospice, inpatient (51) | DRG 375 ==
LOC: HO.ED 16:40 → HO.S3 17:28
PROVIDERS: Radiology Diagnostic Radiology; Admitting Provider Hospitalist; Emergency Provider Emergency Medicine; PCP Internal Medicine; Visit Provider Family Medicine
DX: C15.5 Malignant neoplasm of lower third of esophagus (principal); B02.29 Other postherpetic nervous system involvement; N40.0 Benign prostatic hyperplasia without lower urinary tract symptoms; E03.9 Hypothyroidism, unspecified; E11.42 Type 2 diabetes mellitus with diabetic polyneuropathy; Z20.828 Contact with and (suspected) exposure to other viral communicable diseases; Z88.0 Allergy status to penicillin; Z88.2 Allergy status to sulfonamides; Z79.4 Long term (current) use of insulin; Z79.890 Hormone replacement therapy; Z66 Do not resuscitate
CPT/HCPCS: 36415; 71045; 80048; 80076; 82947; 85025; 85027; 85610; 85730; 87635; 99205; 99285; C1758; J2270; J2405

== ENCOUNTER 2020-11-08 05:44 | Outpatient (REF) | payer MEDICARE, SELFPAY ==
[2020-11-08 07:50] LABS: MANUAL DIFF FLAG NO
[2020-11-08 07:51] LABS: Basophils Absolute Auto 0.1 X10*3/uL (0.0-0.2); Basophils Percent Auto 0.6 % (0-2); Eosinophils Absolute Auto 0.3 X10*3/uL (0.0-0.4); Eosinophils Percent Auto 2.7 % (0-4); Hematocrit 39.7 % (42-52); Hemoglobin 13.1 g/dl (14.0-18.0); Imm Gran Abs Auto 0.07 X10*3/uL (0.00-0.03); Imm Gran Pct Auto 0.6 % (0.0-0.4); Lymphocytes Absolute Auto 1.2 X10*3/uL (1.2-4.9); Mean Corpuscular Volume 87.8 fL (80-98); Mean Platelet Volume 9.5 fL (9.4-12.4); Monocytes Absolute Auto 0.9 X10*3/uL (0.1-1.2); Monocytes Percent Auto 8.4 % (2-11); Neutrophils Absolute Auto 8.6 X10*3/uL (2.0-8.3); Neutrophils Percent Auto 76.7 % (45-73); Platelet Count 392 X10*3/uL (160-400); Red Blood Count 4.52 X10*6/uL (4.60-5.80); Red Cell Distribution Width 14.7 % (11.0-16.0); White Blood Count 11.2 X10*3/uL (4.8-10.8)
[2020-11-08 07:58] LABS: INTERNATIONAL NORM RATIO 1.3 (0.9-1.1); Prothrombin Time 15.6 SEC (10.8-13.0)
[2020-11-08 08:01] LABS: Partial Thromboplastin Time 32.9 SEC (24.1-38.0)
[2020-11-08 08:19] LABS: Alanine Aminotransferase 15 U/L (0-40); Albumin Level 3.5 g/dL (3.5-5.0); Alkaline Phosphatase 79 U/L (39-117); Anion Gap 12 (12-20); Aspartate Amino Transferase 13 U/L (5-37); Bilirubin Total 0.8 mg/dL (0.0-1.0); Blood Urea Nitrogen 20 mg/dL (9-16); Calcium 9.4 mg/dL (8.4-10.2); Carbon Dioxide 27 mmol/L (22-29); Chloride 105 mmol/L (96-108); Estimated Glomerular Filt Rate 45; Glucose Fasting 103 mg/dL (60-99); Potassium 3.7 mmol/l (3.3-5.1); Sodium 140 mmol/L (135-145); Total Protein 6.9 g/dL (6.5-8.0)
== END 2020-11-08 05:45 | disposition home or self-care (01) ==
LOC: HO.HSH4W 05:44
PROVIDERS: Visit Provider Internal Medicine
DX: E11.22 Type 2 diabetes mellitus with diabetic chronic kidney disease (principal); N18.30 Chronic kidney disease, stage 3 unspecified
CPT/HCPCS: 36415; 80053; 85025; 85610; 85730

== ENCOUNTER → 2020-11-09 13:53 | Outpatient (BNVA) | payer MEDICARE, SELFPAY | PROVIDERS: PCP Internal Medicine; Visit Provider Surgery | DX: Z76.89 Persons encountering health services in other specified circumstances (principal) | CPT/HCPCS: 99212 ==

== ENCOUNTER 2020-11-12 11:40 | Inpatient (IN) | payer MEDICARE, SELFPAY ==
[2020-11-12] VITALS (12 sets, daily range): BP systolic 128–164; BP diastolic 65–90; PULSE 72–141; RESP 14–20; TEMP 36.2–37.1; O2SAT 83–100; BMI 24.5
--- NOTE | 2020-11-12 | XR_ITS ---
EXAMINATION: XR CHEST CLINICAL INFORMATION: Chest and right hand/wrist COMPARISON: Chest 10/11/2020 TECHNIQUE: 2 views of the chest were obtained. Right hand 4 views. FINDINGS: Chest: The lungs are somewhat expanded and clear. Heart size and pulmonary vascularity is normal. There is mild thickening of left major fissure no gross bony abnormality seen. Right hand: There is no visible acute fracture, dislocation or subluxation seen. The soft tissues are normal. XR/XR hand wrist RT IMPRESSION: Unremarkable chest exam. No acute fracture or dislocation right hand.
--- NOTE | 2020-11-12 | XR_ITS ---
EXAMINATION: XR CHEST CLINICAL INFORMATION: Chest and right hand/wrist COMPARISON: Chest 10/11/2020 TECHNIQUE: 2 views of the chest were obtained. Right hand 4 views. FINDINGS: Chest: The lungs are somewhat expanded and clear. Heart size and pulmonary vascularity is normal. There is mild thickening of left major fissure no gross bony abnormality seen. Right hand: There is no visible acute fracture, dislocation or subluxation seen. The soft tissues are normal. XR/XR chest 2V IMPRESSION: Unremarkable chest exam. No acute fracture or dislocation right hand.
[2020-11-12 09:21] LABS: Glucose, Whole Blood 203 mg/dL (60-115)
--- NOTE | 2020-11-12 09:31 | ECG_ITS ---
Test Reason : RUNS OF SVT Blood Pressure : / mmHG Vent. Rate : 101 BPM Atrial Rate : 101 BPM P-R Int : 154 ms QRS Dur : 066 ms QT Int : 346 ms P-R-T Axes : 057 019 040 degrees QTc Int : 448 ms Sinus tachycardia with Premature atrial complexes Nonspecific ST abnormality Abnormal ECG No previous ECGs available Referred By: Delia Keith Electronically Signed By:EDGARD MEJÍA MD
--- NOTE | 2020-11-12 09:49 | P.CONAN_ITS ---
HPI - Anesthesia Eval Consult details Narrative: 80 M p/f open G tube placement. Exhibiting runs of SVT in preop. EKG unremarkable except for PACs. Known hx of PACs, asymptomatic, no palpiations, CP or SOB. Fall on right hand this morning with pain in first metatarsal, will order Xray to r/o fracture. Also reports productive cough for 2 weeks, denies fever, chest clear, sat 95 on RA. Will send for preop CXR. [facility] Past Medical History Medical History BPH (benign prostatic hyperplasia) Chronic kidney disease Depression Diabetes Dysphagia Esophageal cancer HTN (hypertension), benign Hypothyroid Lumbar radiculopathy Neuropathy NIDDY (non-insulin dependent diabetes mellitus in young) Obesity Post herpetic neuralgia Urinary catheter in place Family History Family History Father History of heart attack Mother Hx of diabetes mellitus Hx of arthrodesis Surgical History Surgical History Hx of cholecystectomy Social History Social History Household Members: Other Housing: Detention Are you a primary healthcare corporate account director to a significant other at home: No Do you presently have visiting nurse or other home services: No Alcohol intake: never Smoking Status: Unknown if ever smoked Use of substances other than those prescribed or required for medical reasons: No Advance Directives: Yes Advance Directives Information Provided: Yes Advance Directives on File: Yes Advance Directives Date on File: 09/19/20 Recently lost weight without trying: Unsure service: Yes Current occupational status: disabled Meds Allergies Allergy/AdvReac Type Severity Reaction Status Date / Time amoxicillin [AMOXICILLIN] Allergy Unknown SWELLING Verified 10/05/20 21:57 bee pollen [BEE STINGS] Allergy Unknown SWELLING Verified 10/05/20 21:57 clavulanic acid [Augmentin] Allergy Unknown Unknown Verified 10/05/20 21:57 shellfish derived Allergy Unknown HIVES Verified 10/05/20 21:57 [SHELLFISH DERIVED] turkey [TURKEY] Allergy Unknown SWELLING Verified 10/05/20 21:57 bees Allergy Unknown Swelling Uncoded 10/05/20 21:57 poultry Allergy Unknown Hives Uncoded 10/05/20 21:57 shellfish Allergy Unknown Hives Uncoded 10/05/20 21:57 Sulfa Allergy Unknown Hives Uncoded 10/05/20 21:57 [place] Allergy Unknown Hives Uncoded 10/05/20 21:57 Home Medications Medication Instructions Recorded Confirmed Type levothyroxine 25 mcg tablet 25 mcg PO DAILY 09/12/20 10/05/20 History insulin lispro 1 sliding scale dose SUBCUT TID 10/05/20 10/05/20 History acetaminophen 325 mg tablet 650 mg PO Q6H PRN 11/09/20 History bisacodyl 10 mg rectal suppository 10 mg [place] DAILY PRN 11/09/20 History bupropion HCl 150 mg tablet,12 hr 150 mg PO QAM 11/09/20 History sustained-release diphenhydramine HCl 25 mg tablet 25 mg PO BEDTIME 11/09/20 History epinephrine 0.3 mg/0.3 mL 0.3 mg IM Q10M PRN 11/09/20 History injection, auto-injector gabapentin 100 mg capsule 100 mg PO DAILY 11/09/20 History insulin glargine 100 unit/mL 25 unit SUBCUT BID ml 11/09/20 History subcutaneous solution magnesium hydroxide 400 mg/5 mL 400 mg PO BEDTIME PRN ml 11/09/20 History oral suspension ondansetron HCl 4 mg tablet 4 mg PO QID tab 11/09/20 History oxycodone 5 mg tablet 5 mg PO Q4H PRN 11/09/20 History pantoprazole 40 mg tablet,delayed 40 mg PO DAILY 11/09/20 History release sertraline 25 mg tablet 25 mg PO DAILY 11/09/20 History sertraline 50 mg tablet 50 mg PO DAILY 11/09/20 History Exam Exam Date and Time: November 12, 2020 0949 Height,Weight and Vital Signs: Height 5 ft 7 in Weight 71 kg Last Vital Signs Temp 98.4 F 11/12/20 09:18 Pulse 98 11/12/20 09:18 Resp 16 11/12/20 09:18 BP 128/74 11/12/20 09:18 Pulse Ox 94 11/12/20 09:18 Pertinent Lab Results Pertinent Lab Results: Laboratory Tests 11/12/20 09:18 POC Glucose 203 H Airway Mallampati Class: II TM Dist: >3cm Neck ROM: Full Loose/Missing/Broken Teeth: Yes, Upper and Lower Heart: PACs Lungs: NL Other: AO Assessment and Plan Assessment Anesthesia Assessment: Anesthesia Plan Discussed (CXR and hand films unremarkable. Will proceed with GETA.) and Chart Reviewed Final Anesthetic Review NPO: Yes ASA Class: III Final Preanesthetic Review: No Changes in Pt Med Stat, Meds/Allgs Chart Reviewed, Consent Obtained/Reviewed, Anes Risks/Benef Reviewed and DNR Form (If Appl.) Patient Risk: High Procedure Risk: Low Anesthetic Plan Anesthetic Plan: GA Disposition: Standard PACU
[2020-11-12] MEDS: ceFAZolin Sodium/Dextrose,Iso 2 GM/50 ML PIGGYBACK IV (10:14)
[2020-11-12] MEDS: Lactated Ringers 1,000 ML 50 ML IVCONT (10:15)
--- NOTE | 2020-11-12 10:58 | P.HPSUR_ITS ---
Pre-Procedural Eval Section B Chief Complaint: esophageal cancer Allergies: Allergies Allergy/AdvReac Type Severity Reaction Status Date / Time amoxicillin [AMOXICILLIN] Allergy Unknown SWELLING Verified 10/05/20 21:57 bee pollen [BEE STINGS] Allergy Unknown SWELLING Verified 10/05/20 21:57 clavulanic acid [Augmentin] Allergy Unknown Unknown Verified 10/05/20 21:57 shellfish derived Allergy Unknown HIVES Verified 10/05/20 21:57 [SHELLFISH DERIVED] turkey [TURKEY] Allergy Unknown SWELLING Verified 10/05/20 21:57 bees Allergy Unknown Swelling Uncoded 10/05/20 21:57 poultry Allergy Unknown Hives Uncoded 10/05/20 21:57 shellfish Allergy Unknown Hives Uncoded 10/05/20 21:57 Sulfa Allergy Unknown Hives Uncoded 10/05/20 21:57 [place] Allergy Unknown Hives Uncoded 10/05/20 21:57 Plan I have reviewed the history and physical and performed a pertinent physical examination on my patient. No changes have occurred unless specified.
[2020-11-12 11:31] LABS: COVID-19 Test Negative (Negative); IDNOW Serial# 9DD0AD1C
--- NOTE | 2020-11-12 12:55 | P.BOP_ITS ---
Brief Operative Note Date of Service: 11/12/20 Pre-op diagnosis: esophageal cancer Post-op diagnosis: same Procedure: open gastrostomy tube placement Implants: 20fr LAVERNE gtube Surgeon: Isaias Talamantes MD Anesthesia: FABBY Airplane First Officer: Xochilt Child Estimated blood loss (mL): 10 Pathology: none sent Condition: stable Disposition: PACU
[2020-11-12] MEDS: Haloperidol Lactate 5 MG/ML VIAL IV (13:17)
--- NOTE | 2020-11-12 15:25 | MHC.CLN ---
RE: CONSULT NEW TF RECOMMEND PROMOTE AT MAX GOAL 75CC/HR WITH 240CC FREE WATER FLUSH Q SHIFT TO PROVIDE 1800KCALS (25KCALS/KG), 112G PROTEIN (1.6G/KG), 2230CC TOTAL WATER FROM FORMULA AND FLUSHES (31CC/KG) MONITOR TOLERANCE, LYTES AND RESIDUALS
[2020-11-12] MEDS: Lactated Ringers 1,000 ML 80 ML IVCONT (15:49)
[2020-11-12 17:10] LABS: Glucose, Whole Blood 158 mg/dL (60-115)
--- NOTE | 2020-11-12 17:10 | PM.EVENT ---
Event Note Date of Service: 11/12/20 Event Note: Underwent open gastrostomy tube placement today. Good pain control Stable vital signs He appears alert Dressings dry I have updated his niece Salma Pain management Plan to start G-tube feeding tomorrow at low rate
--- NOTE | 2020-11-12 20:08 | PM.IMCN ---
History of Present Illness Data of Consult Service Date: 11/12/20 Requesting physician: Isaias Talamantes Primary Care Provider: Frederic Bone MD [facility] Reason for consult: Medical Management 80-year-old man admitted by General surgery and is status post G-tube placement. He has a history of Anderson's esophagus and adeno carcinoma of the esophagus as well. His appetite has been very poor and he has not been able to eat well with dysphagia therefore tube placement was necessary. He feels okay at this time he denies nausea, vomiting. Does have a moderate amount of pain especially with coughing. His vital signs are stable. Review of Systems Review of Systems: Denies any recent fever chills or decrease in appetite respiratory denies any shortness of breath coverage production cardiovascular is adjustment of any PND or edema gastrointestinal denies any dysphagia abdominal pain nausea vomiting or diarrhea genitourinary denies any dysuria frequency or hematuria musculoskeletal denies any joint pain or swelling neuropsych denies any weakness or seizures all other systems reviewed are negative [facility] Medical History BPH (benign prostatic hyperplasia) Chronic kidney disease Depression Diabetes Dysphagia Esophageal cancer HTN (hypertension), benign Hypothyroid Lumbar radiculopathy Neuropathy NIDDY (non-insulin dependent diabetes mellitus in young) Obesity Post herpetic neuralgia Urinary catheter in place Family History Father History of heart attack Mother Hx of diabetes mellitus Hx of arthrodesis Surgical History Hx of cholecystectomy Social History Household Members: None Housing: Fdc Are you a primary hemodialysis patient care specialist to a significant other at home: No Do you presently have visiting nurse or other home services: No Alcohol intake: never Smoking Status: Unknown if ever smoked Use of substances other than those prescribed or required for medical reasons: Unknown Advance Directives: Yes Advance Directives Information Provided: Yes Advance Directives on File: Yes Advance Directives Date on File: 09/19/20 Do you have thoughts of harming others: None Do you have a plan to hurt others: No Plan Recently lost weight without trying: Yes service: Yes Current occupational status: disabled Meds Allergies Allergy/AdvReac Type Severity Reaction Status Date / Time amoxicillin [AMOXICILLIN] Allergy Unknown SWELLING Verified 10/05/20 21:57 bee pollen [BEE STINGS] Allergy Unknown SWELLING Verified 10/05/20 21:57 clavulanic acid [Augmentin] Allergy Unknown Unknown Verified 10/05/20 21:57 shellfish derived Allergy Unknown HIVES Verified 10/05/20 21:57 [SHELLFISH DERIVED] turkey [TURKEY] Allergy Unknown SWELLING Verified 10/05/20 21:57 bees Allergy Unknown Swelling Uncoded 10/05/20 21:57 poultry Allergy Unknown Hives Uncoded 10/05/20 21:57 shellfish Allergy Unknown Hives Uncoded 10/05/20 21:57 Sulfa Allergy Unknown Hives Uncoded 10/05/20 21:57 [place] Allergy Unknown Hives Uncoded 10/05/20 21:57 Home Medications Medication Instructions Recorded Confirmed Type levothyroxine 25 mcg tablet 25 mcg PO DAILY 09/12/20 11/12/20 History insulin lispro 1 sliding scale dose SUBCUT TID 10/05/20 10/05/20 History acetaminophen 325 mg tablet 650 mg PO Q6H PRN 11/09/20 History bisacodyl 10 mg rectal suppository 10 mg [place] DAILY PRN 11/09/20 History bupropion HCl 150 mg tablet,12 hr 150 mg PO QAM 11/09/20 11/12/20 History sustained-release diphenhydramine HCl 25 mg tablet 25 mg PO BEDTIME 11/09/20 History epinephrine 0.3 mg/0.3 mL 0.3 mg IM Q10M PRN 11/09/20 History injection, auto-injector gabapentin 100 mg capsule 100 mg PO DAILY 11/09/20 11/12/20 History insulin glargine 100 unit/mL 25 unit SUBCUT BID ml 11/09/20 History subcutaneous solution magnesium hydroxide 400 mg/5 mL 400 mg PO BEDTIME PRN ml 11/09/20 History oral suspension ondansetron HCl 4 mg tablet 4 mg PO QID tab 11/09/20 History oxycodone 5 mg tablet 5 mg PO Q4H PRN 11/09/20 History pantoprazole 40 mg tablet,delayed 40 mg PO DAILY 11/09/20 11/12/20 History release sertraline 25 mg tablet 25 mg PO DAILY 11/09/20 11/12/20 History sertraline 50 mg tablet 50 mg PO DAILY 11/09/20 11/12/20 History Physical Exam Vital Signs and Narrative: Vital Signs: Last Vital Signs Temp 98.2 F 11/12/20 19:10 Pulse 93 11/12/20 19:10 Resp 19 11/12/20 19:10 BP 164/65 H 11/12/20 19:10 Pulse Ox 98 11/12/20 19:10 Body Mass Index 24.5 Appearing in no acute distress head is normocephalic atraumatic eyes pupils are PERRLA sclera is anicteric mouth throat mucous membranes are intact and moist neck is supple no lymphadenopathy, no JVD noted lung sounds are clear to auscultation heart regular rate rhythm, clear S1, S2 Abdomen G-tube in place neuro patient is alert x3, no focal deficits Results Labs Labs: Laboratory Results - last 24 hr 11/12/20 11/12/20 11/12/20 09:18 10:50 16:50 POC Glucose 203 H 158 H COVID-19 (АЛЕКСАНДР) Negative COVID-19 Clin Com See Note Imaging Radiologist's Impressions: Impressions Chest X-Ray 11/12/20 00:00 IMPRESSION: Unremarkable chest exam. No acute fracture or dislocation right hand. Hand/Wrist X-Ray 11/12/20 00:00 IMPRESSION: Unremarkable chest exam. No acute fracture or dislocation right hand. Assessment and Plan (1) Esophageal cancer: Status: Acute 80-year-old man admitted by General surgery with history of esophageal cancer and is status post gastrostomy tube placement today. Gastrostomy tube. Management as per surgical team will likely start feeding tomorrow. Pain management. Diabetes mellitus. Sliding scale, POC Depression. Continue home medications. Hypothyroidism. Continue levothyroxine. DVT prophylaxis as per surgical team. Discussed with Dr. Russell CASTORENA
[2020-11-12 20:42] LABS: Glucose, Whole Blood 178 mg/dL (60-115)
--- NOTE | 2020-11-12 20:49 | OP_ITS ---
SURGEON: Isaias Talamantes MD INDICATIONS: The patient is an 80-year-old male, recently diagnosed with esophageal cancer, referred to me for open gastrostomy tube placement because of inability to swallow, initially refused this when I saw him in the hospital a month ago. He eventually wanted to proceed. He said his inability to swallow had been worsening at the [facility]. I had discussed the plan with him as well as as his health care proxy, Salma Rebollar I reviewed with him the technique of the procedure. I discussed the risks including, but not limited to bleeding, infections, tube dislodgement and leakage, inherent risks of anesthesia, as well as the benefits, alternatives and had given consent. PREOPERATIVE DIAGNOSIS: Esophageal cancer with severe dysphagia. POSTOPERATIVE DIAGNOSIS: Esophageal cancer with severe dysphagia. PROCEDURE PERFORMED: Open gastrostomy tube placement. ESTIMATED BLOOD LOSS: COMPLICATIONS: ANESTHESIA: ASSISTANTS: Xochilt Child PA-C SPECIMENS: DESCRIPTION OF PROCEDURE: The patient was brought to the operating room and placed supine on the table under general anesthesia via endotracheal tube. The abdomen was prepped and draped in the usual sterile fashion. A surgical time-out was done. The patient received cefazolin 2 g IV preoperatively. I made a midline epigastric incision using blade #15, was carried down to full-thickness skin and subcutaneous fat down to the fascia. The fascia was incised. The peritoneum was entered. We proceeded to use Anthony clamps to lift up the fascia on the left side. I also used the Marquez retractors to retract the upper part of the incision and by doing so, he was able to visualize the stomach on the left upper quadrant. This actually was higher up past the incision, so we had to use Berwick clamps and applied this on the lesser curvature to pull the stomach into view. I was able to visualize the anterior wall. This was clearly identified in the lesser curvature with attached omentum. I then placed two circumferential pursestring 3-0 Dexon sutures on the seromuscular layer of the stomach wall, one internal pursestring and an external pursestring. I cauterized the serosa in the middle and entered the stomach cavity. I had earlier pulled a Moe 20 G tube through the abdominal wall through a small stab incision from the left upper quadrant. This was then positioned into the stomach lumen. Once this was well in position, I proceeded to then tighten the inner pursestring first then the outer pursestring to imbricate. This created a good seal around the G-tube. I then applied multiple throws of Dexon 2-0 sutures to secure the stomach wall around the G-tube to the peritoneum of the abdominal wall. I placed about 6 of these around the G-tube site. I then tightened each one after placement of the sutures. This lifted off the anterior stomach wall to the peritoneum and secured the area to prevent any leakage. I then inject large amounts of irrigation into the Gtube with a bulb syringe. There was no evidence of any leakagefrom the tube site. The stomach wall appeared secure as well to the peritoneum. Once this was achieved, I proceeded to secure the G-tube using the external bolster to the skin with nylon 3-0 sutures. I then closed the fascia of the anterior abdominal wall with Maxon 1 running stitch. Irrigation was done in the subcutaneous layer. I closed the skin incision with skin nela. The incision was infiltrated with Marcaine 0.5% for postop analgesia and the procedure was completed. The patient tolerated the procedure well. There were no complications noted. Initial and final counts of sponges and instruments were correct. Estimated blood loss was about 5 mL. The patient extubated without difficulty and transferred to the recovery room with stable vital signs. MD HANNAH Sheth/DUNIA / [id number] MTDD
[2020-11-12] MEDS: Insulin Lispro 100 UNIT/ML 3 ML VIAL SUBCUT (20:56)
--- NOTE | 2020-11-12 20:59 | PM.EVENT ---
Event Note Date of Service: 11/12/20 Event Note: Pt seen and examined independently. I agree with note, assessment and plan as outlined in consult note. Pt s/p G tube, complaining of pain, will start him on tylenol.
[2020-11-13] MEDS: Lactated Ringers 1,000 ML 80 ML IVCONT ×2 (03:21→15:49)
[2020-11-13 04:00] VITALS: BP 157/82; PULSE 78; RESP 19; TEMP 36.7; O2SAT 96
[2020-11-13] MEDS: Levothyroxine Sodium 25 MCG TABLET PO (06:22)
[2020-11-13 07:28] VITALS: BP 167/90; PULSE 82; RESP 16; TEMP 36.1; O2SAT 95
[2020-11-13 07:43] LABS: Glucose, Whole Blood 157 mg/dL (60-115)
--- NOTE | 2020-11-13 08:19 | PM.PNGS ---
Subjective Subjective Date of Service: 11/13/20 <Xochilt Child PA-C - Last Filed: 11/13/20 08:24> 11/13/20 <Isaias Talamantes MD - Last Filed: 11/13/20 09:20> Interval history: Complains of pain at incision site. Medication helping a little but does not take the edge off. Denies nausea. Denies flatus. Reports he can take meds by mouth. <Xochilt Child PA-C - Last Filed: 11/13/20 08:24> Physical Exam Vital Signs: Vital Signs: Last Vital Signs Temp 97.0 F 11/13/20 07:28 Pulse 82 11/13/20 07:28 Resp 16 11/13/20 07:28 BP 167/90 H 11/13/20 07:28 Pulse Ox 95 11/13/20 07:28 Body Mass Index 24.5 <Xochilt Child PA-C - Last Filed: 11/13/20 08:24> Const: General: comfortable, no acute distress and alert <Xochilt Child PA-C - Last Filed: 11/13/20 08:24> Orientation/consciousness: patient oriented x3 <KAROLINA Larkin Last Filed: 11/13/20 08:24> Resp: Effort & Inspection: normal respiratory effort <KAROLINA Larkin Last Filed: 11/13/20 08:24> GI: Inspection: Yes incision (clean) and Yes G-tube present (intact) <Xochilt Child PA-C - Last Filed: 11/13/20 08:24> Palpation (GI): Soft to palpation, Tenderness to palpation present (GI) (moderate), no guarding and No Rebound tenderness present <KAROLINA Larkin Last Filed: 11/13/20 08:24> : Other: cardona in place <KAROLINA Larkin Last Filed: 11/13/20 08:24> Skin: General skin exam: no rashes or lesions noted <KAROLINA Larkin Last Filed: 11/13/20 08:24> Neuro: General: patient oriented x3 <Xochilt Child PA-C - Last Filed: 11/13/20 08:24> Extrem: General: Yes no clubbing, cyanosis or edema <Xochilt Child PA-C - Last Filed: 11/13/20 08:24> Progress Note: A&P Assessment and plan (1) Chronic kidney disease: Status: Acute <Xochilt Child PA-C - Last Filed: 11/13/20 08:24> (2) Adenocarcinoma of esophagus: Status: Acute <KAROLINA Larkin Last Filed: 11/13/20 08:24> (3) Status post gastrostomy tube (G tube) placement, follow-up exam: Problem details: POD #1 <KAROLINA Larkin Last Filed: 11/13/20 08:24> Status: Acute <KAROLINA Larkin Last Filed: 11/13/20 08:24> Assessment and Plan: Abdominal exam benign with appropriate post op tenderness, G tube in place and anchored at skin. Having difficulty with pain control. On morphine, ofirmev. Will add PO oxycodone, increase morphine PRN. Begin tube feeding diet per nutrition recommendations today. F/u labs. Encouraged OOB to chair today, IS use. <Xochilt Child PA-C - Last Filed: 11/13/20 08:24> (4) Esophageal cancer: Status: Acute <Xochilt Child PA-C - Last Filed: 11/13/20 08:24> Assessment and Plan: S/P Gtube placement, open looks well abd soft dressings dry Gtube in place pain mgt start tube feeds at low rate seen and examined - agree with REJI Child <Isaias Talamantes MD - Last Filed: 11/13/20 09:20> Fall Risk Details Current Medications: Current Medications Generic Name Dose Route Start Last Admin Trade Name Freq PRN Reason Stop Dose Admin Bisacodyl 10 mg 11/12/20 14:32 Bisacodyl 10 Mg Supp.Rect [place] DAILY PRN Constipation Acetaminophen 1,000 mg in 100 mls @ 400 mls/hr 11/12/20 15:00 11/13/20 03:19 Ofirmev IV Infused Q6H [facility] Infusion Lactated Ringer's 1,000 mls @ 80 mls/hr 11/12/20 14:32 11/13/20 03:21 Lr IVCONT 80 mls/hr .[id number] VARUN Administration Insulin Human Lispro 0 unit 11/12/20 16:30 11/12/20 20:56 Insulin Lispro 100 Unit/Ml 3 Ml Vial SUBCUT 11/13/20 13:06 2 unit QIDACHS [facility] Administration Protocol Levothyroxine Sodium 25 mcg 11/13/20 06:00 11/13/20 06:22 Levothyroxine Sodium 25 Mcg Tablet PO 25 mcg DAILY@0600 [facility] Administration Morphine Sulfate 3 mg 11/13/20 08:14 Morphine Sulfate 4 Mg/Ml Cartridge IVPUSH Q3H PRN Pain, Severe (Pain Scale 7-10) Ondansetron HCl 4 mg 11/12/20 14:32 Ondansetron Hcl 4 Mg/2 Ml Vial IVPUSH Q6H PRN Nausea/vomiting Oxycodone HCl 5 mg 11/13/20 08:09 Oxycodone Hcl Immed Release 5 Mg Tablet PO Q4H PRN Pain, Moderate (Pain Scale 4-6 Pharmacy Consult 1 each 11/12/20 20:11 Consult Rx Perform Med Rec MISCELLANE ONCE PRN Consult order <Xochilt Child PA-C - Last Filed: 11/13/20 08:24> Time Spent With Patient Time: Total time spent is greater than 50% in coordination of care (as documented) at patient's floor/unit and/or counseling patient: <Xochilt Child PA-C - Last Filed: 11/13/20 08:24> Time with patient: 15 - 24 minutes <Xochilt Child PA-C - Last Filed: 11/13/20 08:24>
[2020-11-13 08:29] LABS: MANUAL DIFF FLAG NO
[2020-11-13 08:38] LABS: Basophils Percent Auto 0.3 % (0-2); Eosinophils Absolute Auto 0.3 X10*3/uL (0.0-0.4); Eosinophils Percent Auto 3.2 % (0-4); Hematocrit 36.2 % (42-52); Hemoglobin 11.8 g/dl (14.0-18.0); Imm Gran Abs Auto 0.05 X10*3/uL (0.00-0.03); Imm Gran Pct Auto 0.5 % (0.0-0.4); Lymphocytes Absolute Auto 0.8 X10*3/uL (1.2-4.9); Lymphocytes Percent Auto 8.4 % (20-40); Mean Corpuscular HGB Conc 32.6 g/dl (31.0-36.0); Mean Corpuscular Hemoglobin 28.6 pg (27.0-33.0); Mean Corpuscular Volume 87.7 fL (80-98); Mean Platelet Volume 9.5 fL (9.4-12.4); Monocytes Absolute Auto 0.7 X10*3/uL (0.1-1.2); Monocytes Percent Auto 6.8 % (2-11); Neutrophils Absolute Auto 8.1 X10*3/uL (2.0-8.3); Neutrophils Percent Auto 80.8 % (45-73); Platelet Count 294 X10*3/uL (160-400); Red Blood Count 4.13 X10*6/uL (4.60-5.80); Red Cell Distribution Width 14.6 % (11.0-16.0)
[2020-11-13 09:05] LABS: Anion Gap 11 (12-20); Blood Urea Nitrogen 17 mg/dL (9-16); Calcium 8.7 mg/dL (8.4-10.2); Carbon Dioxide 26 mmol/L (22-29); Chloride 102 mmol/L (96-108); Creatinine Clr Calc Pharmacy 50.1; Estimated Glomerular Filt Rate > 60; Glucose Fasting 161 mg/dL (60-99); Sodium 135 mmol/L (135-145)
[2020-11-13] MEDS: Insulin Lispro 100 UNIT/ML 3 ML VIAL SUBCUT (09:07)
--- NOTE | 2020-11-13 09:10 | MHC.CM.PN ---
EMR REVIEWED, PLAN FOR PT TO RETURN TO [facility] ON 11/14/22 IF PATIENT TOLERATES GTUBE FEEDINGS, BLS TRANSPORT VIA [facility]. CM SPOKE WITH NURSE COOK'S ASSISTANT MANJULA ROBLES AT [facility] TO GIVE HER INFO ON FEEDINGS SO IT CAN BE ORDERED PRIOR TO DISCHARGE ANTICIPATED FOR TOMORROW. DATA ENTRY COORDINATOR NOTE, OPERATIVE NOTES, GENERAL SURGERY NOTES AND INTERNAL MEDICINE CONSULT NOTES FAXED TO NURSE COOK'S ASSISTANT. [facility]: MANJULA ROBLES: [phone] FAX: [phone] NURSING CAN DRAGGER: [phone] HCP: BALJINDER GILMORE [phone] ALTERNATE: MARGE GILMORE [phone]
[2020-11-13] MEDS: Morphine Sulfate 4 MG/ML CARTRIDGE 3 MG IVPUSH (10:14)
--- NOTE | 2020-11-13 10:36 | MHC.CM.PN ---
EMR REVIEWED, DISCHARGE PLAN RETURN TO [facility], BLS TRANSPORTATION VIA [facility]. PATIENT GROGGY DURING ASSESSMENT, PATIENT COMPLAINING OF 7/10 ABDOMINAL PAIN, PT ABLE TO NAME HEALTH CARE PROXY AGENTS, PT ENDING ASSESSMENT EARLY DUE TO PAIN LEVEL, PATIENTS ASSIGNED NURSE NOTIFIED.
--- NOTE | 2020-11-13 10:50 | HO.PM.IMPN ---
Subjective Subjective Date of Service: 11/13/20 Interval History: pain at gtube site Cardiovascular Cardiovascular: Reports no additional cardiovascular complaints Respiratory Respiratory: Reports no additional respiratory complaints Physical Exam Vital Signs: Vital Signs: Last Vital Signs Temp 97.0 F 11/13/20 07:28 Pulse 82 11/13/20 07:28 Resp 16 11/13/20 07:28 BP 167/90 H 11/13/20 07:28 Pulse Ox 95 11/13/20 07:28 Body Mass Index 24.5 General: AO X 3, in pain Resp: CTA bilateral CVS: S1,S2,RRR Neuro: motor grossly intact Psych: appropriate affect Objective Data Current Medications Generic Name Dose Route Start Last Admin Trade Name Freq PRN Reason Stop Dose Admin Bisacodyl 10 mg 11/12/20 14:32 Bisacodyl 10 Mg Supp.Rect [place] DAILY PRN Constipation Acetaminophen 1,000 mg in 100 mls @ 400 mls/hr 11/12/20 15:00 11/13/20 10:14 Ofirmev IV 400 mls/hr Q6H VARUN Administration Lactated Ringer's 1,000 mls @ 80 mls/hr 11/12/20 14:32 11/13/20 03:21 Lr IVCONT 80 mls/hr .[id number] VARUN Administration Insulin Human Lispro 0 unit 11/12/20 16:30 11/13/20 09:07 Insulin Lispro 100 Unit/Ml 3 Ml Vial SUBCUT 11/13/20 13:06 2 unit QIDACHS VARUN Administration Protocol Levothyroxine Sodium 25 mcg 11/13/20 06:00 11/13/20 06:22 Levothyroxine Sodium 25 Mcg Tablet PO 25 mcg DAILY@0600 VARUN Administration Morphine Sulfate 3 mg 11/13/20 08:14 11/13/20 10:14 Morphine Sulfate 4 Mg/Ml Cartridge IVPUSH 3 mg Q3H PRN Administration Pain, Severe (Pain Scale 7-10) Ondansetron HCl 4 mg 11/12/20 14:32 Ondansetron Hcl 4 Mg/2 Ml Vial IVPUSH Q6H PRN Nausea/vomiting Oxycodone HCl 5 mg 11/13/20 08:09 Oxycodone Hcl Immed Release 5 Mg Tablet PO Q4H PRN Pain, Moderate (Pain Scale 4-6 Pharmacy Consult 1 each 11/12/20 20:11 Consult Rx Perform Med Rec MISCELLANE ONCE PRN Consult order Labs CBC & Chem 7: 11/13/20 08:21 11/13/20 08:21 Assessment and Plan (1) Esophageal cancer: Status: Acute Assessment and Plan: 80-year-old man admitted by General surgery with history of esophageal cancer and is status post gastrostomy tube placement 11/12 STARLA resolved DM insulin hypothyroid synthroid
[2020-11-13 11:43] VITALS: BP 130/81; PULSE 82; RESP 16; TEMP 36.3; O2SAT 99
[2020-11-13 12:03] LABS: Glucose, Whole Blood 117 mg/dL (60-115)
[2020-11-13 15:25] VITALS: BMI 24.5
[2020-11-13 15:40] VITALS: BP 143/85; PULSE 87; RESP 18; TEMP 36.7; O2SAT 98
[2020-11-13 17:13] LABS: Glucose, Whole Blood 103 mg/dL (60-115)
--- NOTE | 2020-11-13 18:31 | HO.POSTANES ---
Post Anesthesia Evaluation Post Anesthesia Evaluation Vital Signs: Vital Signs Temp Pulse Resp BP Pulse Ox 11/13/20 15:40 98.0 F 87 18 143/85 H 98 11/13/20 11:43 97.3 F 82 16 130/81 99 11/13/20 07:28 97.0 F 82 16 167/90 H 95 Anesthesia: General Mental Status: Awake Pain Control: Satisfactory Nausea/Vomiting: None Hydration: Adequate Anesthesia-Related Issues: No Anes. Related Issues
[2020-11-13 19:16] VITALS: BP 147/83; PULSE 77; RESP 18; TEMP 36.6; O2SAT 99
[2020-11-13 21:25] LABS: Glucose, Whole Blood 215 mg/dL (60-115)
[2020-11-13 23:23] VITALS: BP 154/88; PULSE 76; RESP 14; TEMP 36; O2SAT 97
[2020-11-14 04:00] VITALS: BP 154/100; PULSE 101; RESP 18; TEMP 36.4; O2SAT 96
[2020-11-14] MEDS: Lactated Ringers 1,000 ML 80 ML IVCONT (05:12)
[2020-11-14] MEDS: Morphine Sulfate 4 MG/ML CARTRIDGE 3 MG IVPUSH ×3 (05:12→19:17)
[2020-11-14] MEDS: Levothyroxine Sodium 25 MCG TABLET G-TUBE (05:57)
[2020-11-14 07:42] LABS: Glucose, Whole Blood 293 mg/dL (60-115)
[2020-11-14 07:44] VITALS: BP 166/83; PULSE 83; RESP 18; TEMP 36.1; O2SAT 96
--- NOTE | 2020-11-14 07:47 | P.PNGS_ITS ---
Subjective Subjective Date of Service: 11/14/20 <Xochilt Child PA-C - Last Filed: 11/14/20 07:51> 11/14/20 <Isaias Talamantes MD - Last Filed: 11/14/20 08:41> Interval history: Feeling better this morning, pain control improved. Tube feeds have been running. Denies nausea. Denies flatus. OOB to chair yesterday. <Xochilt Child PA-C - Last Filed: 11/14/20 07:51> Physical Exam Vital Signs: Vital Signs: Last Vital Signs Temp 96.9 F 11/14/20 07:44 Pulse 83 11/14/20 07:44 Resp 18 11/14/20 07:44 BP 166/83 H 11/14/20 07:44 Pulse Ox 96 11/14/20 07:44 Body Mass Index 24.5 <Xochilt Child PA-C - Last Filed: 11/14/20 07:51> Const: General: comfortable, no acute distress and alert <Xochilt Child PA-C - Last Filed: 11/14/20 07:51> Orientation/consciousness: patient oriented x3 <Xochilt Child PA-C - Last Filed: 11/14/20 07:51> Eyes: Sclerae: sclerae normal <KAROLINA Larkin Last Filed: 11/14/20 07:51> Resp: Effort & Inspection: normal respiratory effort <Xochilt Child PA-C - Last Filed: 11/14/20 07:51> GI: Other: G tube in place and intact, tube feeds running <Xochilt Child PA-C - Last Filed: 11/14/20 07:51> Inspection: No distended and Yes incision (clean) <KAROLINA Larkin Last Filed: 11/14/20 07:51> Palpation (GI): Soft to palpation and Tenderness to palpation present (GI) (mild, incisional) <KAROLINA Larkin Last Filed: 11/14/20 07:51> Skin: General skin exam: no rashes or lesions noted <KAROLINA Larkin Last Filed: 11/14/20 07:51> Neuro: General: patient oriented x3 <Xochilt Child PA-C - Last Filed: 11/14/20 07:51> Progress Note: A&P Assessment and plan (1) Status post gastrostomy tube (G tube) placement, follow-up exam: Problem details: POD #2 <Xochilt Child PA-C - Last Filed: 11/14/20 07:51> Status: Acute <KAROLINA Larkin Last Filed: 11/14/20 07:51> Assessment and Plan: Doing well post op. Abdominal exam benign with appropriate post op tenderness, G tube in place and anchored at skin. Appears to be tolerating tube feeds well. Encouraged OOB to chair today, IS use. If remains stable, [facility] patient comfortable with plan. <Xochilt Child PA-C - Last Filed: 11/14/20 07:51> (2) Esophageal cancer: Status: Acute <Xochilt Child PA-C - Last Filed: 11/14/20 07:51> (3) Chronic kidney disease: Status: Acute <Xochilt Child PA-C - Last Filed: 11/14/20 07:51> (4) Dysphagia: Status: Acute <Xochilt Child PA-C - Last Filed: 11/14/20 07:51> Assessment and Plan: feels better pain wellcontrolled tolerating tube feeds PEG in place abd soft plan to dc to [facility] seen and examined - agree with REJI Child <Isaias Talamantes MD - Last Filed: 11/14/20 08:41> Fall Risk Details Current Medications: Current Medications Generic Name Dose Route Start Last Admin Trade Name Freq PRN Reason Stop Dose Admin Bisacodyl 10 mg 11/12/20 14:32 Bisacodyl 10 Mg Supp.Rect ND DAILY PRN Constipation Lactated Ringer's 1,000 mls @ 80 mls/hr 11/12/20 14:32 11/14/20 05:12 Lr IVCONT 80 mls/hr .[id number] VARUN Administration Acetaminophen 1,000 mg in 100 mls @ 400 mls/hr 11/13/20 23:00 11/14/20 05:56 Ofirmev IV Infused Q6H VARUN Infusion Levothyroxine Sodium 25 mcg 11/14/20 06:00 11/14/20 05:57 Levothyroxine Sodium 25 Mcg Tablet G-TUBE 25 mcg DAILY@0600 VARUN Administration Morphine Sulfate 3 mg 11/13/20 08:14 11/14/20 05:12 Morphine Sulfate 4 Mg/Ml Cartridge IVPUSH 3 mg Q3H PRN Administration Pain, Severe (Pain Scale 7-10) Ondansetron HCl 4 mg 11/12/20 14:32 Ondansetron Hcl 4 Mg/2 Ml Vial IVPUSH Q6H PRN Nausea/vomiting Oxycodone HCl 5 mg 11/13/20 08:09 Oxycodone Hcl Immed Release 5 Mg Tablet PO Q4H PRN Pain, Moderate (Pain Scale 4-6 Pharmacy Consult 1 each 11/12/20 20:11 Consult Rx Perform Med Rec MISCELLANE ONCE PRN Consult order <Xochilt Child PA-C - Last Filed: 11/14/20 07:51> Time Spent With Patient Time: Total time spent is greater than 50% in coordination of care (as documented) at patient's floor/unit and/or counseling patient: <Xochilt Child PA-C - Last Filed: 11/14/20 07:51> Time with patient: 15 - 24 minutes <Xochilt Child PA-C - Last Filed: 11/14/20 07:51>
--- NOTE | 2020-11-14 08:36 | MHC.CM.PN ---
Addendum entered by Crystal Padilla RN 11/14/20 13:25: [facility] UPDATED AND FAXED DISCHARGE SUMMARY (DRAFT) AND COPY OF SCRIPT FOR PAIN MEDICATION PER REQUEST. DISCHARGE TO [facility] 11/15 AT 1PM [facility]IA [facility] Original Note: CM SPOKE WITH PATIENTS NURSE INVESTMENT ADVISOR MANJULA ROBLES AT [facility] TO UPDATE PATIENTS STATUS INCLUDING PAIN MEDICATION, HOW PT IS TOLERATING FEED AND ANTICIPATED PER SURGICAL. PLAN: RETURN TO [facility] 11/15/25 AT 1PM, BLS TRANSPORT [facility]
--- NOTE | 2020-11-14 09:17 | HO.PM.IMPN ---
Subjective Subjective Date of Service: 11/14/20 Interval History: pain much better Cardiovascular Cardiovascular: Reports no additional cardiovascular complaints Respiratory Respiratory: Reports no additional respiratory complaints Physical Exam Vital Signs: Vital Signs: Last Vital Signs Temp 96.9 F 11/14/20 07:44 Pulse 83 11/14/20 07:44 Resp 18 11/14/20 07:44 BP 166/83 H 11/14/20 07:44 Pulse Ox 96 11/14/20 07:44 Body Mass Index 24.5 General: AO X 3, no acute distress Resp: CTA bilateral CVS: S1,S2,RRR GI: soft, non tender, non distended Neuro: motor grossly intact Psych: appropriate affect Objective Data Current Medications Generic Name Dose Route Start Last Admin Trade Name Freq PRN Reason Stop Dose Admin Bisacodyl 10 mg 11/12/20 14:32 Bisacodyl 10 Mg Supp.Rect [place] DAILY PRN Constipation Lactated Ringer's 1,000 mls @ 80 mls/hr 11/12/20 14:32 11/14/20 05:12 Lr IVCONT 80 mls/hr .[id number] VARUN Administration Acetaminophen 1,000 mg in 100 mls @ 400 mls/hr 11/13/20 23:00 11/14/20 05:56 Ofirmev IV Infused Q6H VARUN Infusion Levothyroxine Sodium 25 mcg 11/14/20 06:00 11/14/20 05:57 Levothyroxine Sodium 25 Mcg Tablet G-TUBE 25 mcg DAILY@0600 VARUN Administration Morphine Sulfate 3 mg 11/13/20 08:14 11/14/20 05:12 Morphine Sulfate 4 Mg/Ml Cartridge IVPUSH 3 mg Q3H PRN Administration Pain, Severe (Pain Scale 7-10) Ondansetron HCl 4 mg 11/12/20 14:32 Ondansetron Hcl 4 Mg/2 Ml Vial IVPUSH Q6H PRN Nausea/vomiting Oxycodone HCl 5 mg 11/13/20 08:09 Oxycodone Hcl Immed Release 5 Mg Tablet PO Q4H PRN Pain, Moderate (Pain Scale 4-6 Pharmacy Consult 1 each 11/12/20 20:11 Consult Rx Perform Med Rec MISCELLANE ONCE PRN Consult order Labs CBC & Chem 7: 11/13/20 08:21 11/13/20 08:21 Assessment and Plan (1) Esophageal cancer: Status: Acute Assessment and Plan: 80-year-old man admitted by General surgery with history of esophageal cancer and is status post gastrostomy tube placement 11/12 HTN would be hesitant to overtreat based on perioperative measurements, but should monitor in case antihypertensives required STARLA resolved DM insulin hypothyroid synthroid
[2020-11-14 11:34] LABS: Glucose, Whole Blood 321 mg/dL (60-115)
[2020-11-14 11:44] VITALS: BP 143/80; PULSE 87; RESP 18; TEMP 36.1; O2SAT 96
--- NOTE | 2020-11-14 12:20 | PM.DS ---
DS: Providers Provider Date of admission: 11/12/20 11:40 Primary care physician: Frederic Bone MD Consults: 11/12/20 14:32 Consult to Hospitalist Routine Consulting Provider: Hospitalist Reason for consultation: s/p gastrostomy tube placement for esophageal CA, hx of diabetes, CKD DS: Diagnosis Discharge Diagnosis (1) Esophageal cancer: Status: Acute (2) Status post gastrostomy tube (G tube) placement, follow-up exam: Status: Acute (3) Chronic kidney disease: Status: Acute DS: Medications Discharge Medications Home Medications: Home Medications Medication Instructions Recorded Confirmed levothyroxine 25 mcg tablet 25 mcg PO DAILY 09/12/20 11/12/20 insulin lispro 1 sliding scale dose SUBCUT TID 10/05/20 11/12/20 bupropion HCl 150 mg tablet,12 hr 150 mg PO QAM 11/09/20 11/12/20 sustained-release gabapentin 100 mg capsule 100 mg PO DAILY 11/09/20 11/12/20 insulin glargine 100 unit/mL 25 unit SUBCUT BID ml 11/09/20 11/12/20 subcutaneous solution ondansetron HCl 4 mg tablet 4 mg PO TID tab 11/09/20 11/12/20 pantoprazole 40 mg tablet,delayed 40 mg PO DAILY 11/09/20 11/12/20 release sertraline 25 mg tablet 25 mg PO DAILY 11/09/20 11/12/20 sertraline 50 mg tablet 50 mg PO DAILY 11/09/20 11/12/20 gabapentin 100 mg PO BID 11/12/20 11/12/20 DS: Summary Hospital Course Hospital Course: BRIEF HPI: The patient is an 80-year-old male, recently diagnosed with esophageal cancer, referred for open gastrostomy tube placement because of inability to swallow. The patient initially refused when seen in the hospital a month ago. He now wants to proceed. He said his [facility] to [facility] He now presents for placement. HOSPITAL COURSE: On 11/12/20, open gastrostomy tube placement was performed by Dr. Isaias Talamantes without complication. A 20fr LAVERNE G-tube was used. The patient tolerated the procedure well and was admitted for observation. A hospitalist consult was obtained for management of his medical comorbidities. He had an uncomplicated recovery course. He had some pain post operatively which was controlled with PRN analgesics. His abdomen had appropriate post op tenderness and the G tube remained in place. Nutrition was consulted for tube feeding diet recommendations and his tube feedings were started on POD #1, 11/13/20. He appeared to be tolerating the tube feedings well during his stay. He was OOB to the recliner without difficulty. On the day of discharge, he was tolerating the tube feedings well without any nausea or vomiting or distention. His pain control was adequate. His incision was clean and G tube remained intact and anchored to the skin. He was transferred back to the [facility] on 11/15/20 in stable condition. He is to follow up with Dr. Talamantes in office in 2 weeks. He is to resume all home medications. Status at Discharge Functional status at discharge: uses cane/walker Overall status at discharge: patient is not back to baseline Time Spent with Patient Time attestation: Total time spent providing and/or coordinating discharge services: Physical Exam Vital Signs: Vital Signs: Last Vital Signs Temp 96.9 F 11/14/20 11:44 Pulse 87 11/14/20 11:44 Resp 18 11/14/20 11:44 BP 143/80 H 11/14/20 11:44 Pulse Ox 96 11/14/20 11:44 Body Mass Index 24.5 Const: General: comfortable, no acute distress and alert Orientation/consciousness: patient oriented x3 Eyes: Sclerae: sclerae normal Resp: Effort & Inspection: normal respiratory effort GI: Other: G tube in place Inspection: No distended and Yes incision (clean) Palpation (GI): Soft to palpation, Tenderness to palpation present (GI) (mild, incisional) and No Rebound tenderness present Skin: General skin exam: no rashes or lesions noted Neuro: General: patient oriented x3 Extrem: General: Yes no clubbing, cyanosis or edema DS: Data Data Completed and Pending Labs on day of discharge: 11/12/20 XR chest 2V Stat XR hand wrist RT Stat 11/12/20 08:49 ceFAZolin Sodium/Dextrose,Iso [Ancef] 2 gm in 50 ml IV PREOP 11/12/20 09:18 Glucose, Whole Blood Routine 11/12/20 09:31 ECG 12 lead EKG Stat 11/12/20 10:00 Lactated Ringers [Lr] 1,000 ml IVCONT 50 mls/hr 11/12/20 10:11 ceFAZolin Sodium/Dextrose,Iso [Ancef] 2 gm in 50 ml .ROUTE As directed 11/12/20 10:45 Bupivacaine MPF 0.5 % [Sensorcaine MPF 0.5% 10 ML] 10 ml .ROUTE .STK-MED ONE Lidocaine HCl 1 % MPF [Xylocaine 1 % MPF] 5 ml .ROUTE .STK-MED ONE 11/12/20 10:50 COVID-19 ID NOW (Parra) Stat 11/12/20 10:56 Lidocaine HCl 2 % MPF [Xylocaine 2 % MPF] 5 ml .ROUTE .STK-MED ONE Rocuronium [place] [Zemuron] 100 mg IV .STK-MED ONE fentaNYL citrate/PF [Sublimaze] 50 mcg .ROUTE .STK-MED ONE propofoL [Diprivan] 200 mg IVPUSH .STK-MED ONE 11/12/20 11:56 fentaNYL citrate/PF [Sublimaze] 50 mcg .ROUTE .STK-MED ONE 11/12/20 12:49 Sugammadex Sodium [Bridion] 200 mg IVPUSH .STK-MED ONE 11/12/20 12:56 Transfer Order Routine 11/12/20 13:00 ondansetron HCL [Zofran] 4 mg .ROUTE .STK-MED ONE 11/12/20 13:13 HYDROmorphone HCl [Dilaudid] 0.25 mg IVPUSH Q5M PRN Haloperidol Lactate [Haldol] 0.5 mg IV STAT STA Haloperidol Lactate [Haldol] 5 mg .ROUTE .STK-MED ONE Promethazine HCL [Phenergan] 12.5 mg 0.9 % Sodium Chloride [Ns] 50 ml IV ONCE 11/12/20 13:28 Promethazine HCL [Phenergan] 25 mg IV .STK-MED ONE 11/12/20 14:32 Morphine Sulfate 2 mg IVPUSH Q3H PRN 11/12/20 15:00 Acetaminophen [Ofirmev] 1,000 mg in 100 ml IV Q6H 11/12/20 Lunch Clear Liquid Diet 11/12/20 16:30 Insulin Lispro [Humalog] See Protocol SUBCUT QIDACHS 11/12/20 16:50 Glucose, Whole Blood Routine 11/12/20 20:32 Glucose, Whole Blood Routine 11/12/20 20:48 Consult Rx Perform Med Rec 1 each MISCELLANE ONCE PRN 11/12/20 21:00 Gabapentin [Neurontin] 100 mg PO BEDTIME 11/13/20 06:00 Levothyroxine Sodium [Synthroid] 25 mcg PO DAILY@0600 11/13/20 07:31 Glucose, Whole Blood Routine 11/13/20 08:21 Basic Metabolic Panel Fasting Routine Complete Blood Count Auto Diff Routine 11/13/20 11:35 Glucose, Whole Blood Routine 11/13/20 16:43 Glucose, Whole Blood Routine 11/13/20 21:21 Glucose, Whole Blood Routine 11/14/20 07:35 Glucose, Whole Blood Routine 11/14/20 11:27 Glucose, Whole Blood Routine Laboratory Last Values WBC 10.0 X10*3/uL (4.8-10.8) 11/13/20 08:21 RBC 4.13 X10*6/uL (4.60-5.80) L 11/13/20 08:21 Hgb 11.8 g/dl (14.0-18.0) L 11/13/20 08:21 Hct 36.2 % (42-52) L 11/13/20 08:21 MCV 87.7 fL (80-98) 11/13/20 08:21 MCH 28.6 pg (27.0-33.0) 11/13/20 08:21 MCHC 32.6 g/dl (31.0-36.0) 11/13/20 08:21 RDW 14.6 % (11.0-16.0) 11/13/20 08:21 Plt Count 294 X10*3/uL (160-400) 11/13/20 08:21 MPV 9.5 fL (9.4-12.4) 11/13/20 08:21 Immature Gran % (Auto) 0.5 % (0.0-0.4) H 11/13/20 08:21 Neut % (Auto) 80.8 % (45-73) H 11/13/20 08:21 Lymph % (Auto) 8.4 % (20-40) L 11/13/20 08:21 [place] % (Auto) 6.8 % (2-11) 11/13/20 08:21 Eos % (Auto) 3.2 % (0-4) 11/13/20 08:21 Baso % (Auto) 0.3 % (0-2) 11/13/20 08:21 Lymph # (Auto) 0.8 X10*3/uL (1.2-4.9) L 11/13/20 08:21 [place] # (Auto) 0.7 X10*3/uL (0.1-1.2) 11/13/20 08:21 Eos # (Auto) 0.3 X10*3/uL (0.0-0.4) 11/13/20 08:21 Baso # (Auto) 0.0 X10*3/uL (0.0-0.2) 11/13/20 08:21 Abs Immat Gran (auto) 0.05 X10*3/uL (0.00-0.03) H 11/13/20 08:21 Absolute Neuts (auto) 8.1 X10*3/uL (2.0-8.3) 11/13/20 08:21 Absolute Nucleated RBC 0.000 X10*3/uL (0.0-0.012) 11/13/20 08: Nucleated RBC % (auto) 0.0 /100WBC (0.0-0.2) 11/13/20 08:21 Sodium 135 mmol/L (135-145) 11/13/20 08:21 Potassium 4.0 mmol/l (3.3-5.1) 11/13/20 08:21 Chloride 102 mmol/L (96-108) 11/13/20 08:21 Carbon Dioxide 26 mmol/L (22-29) 11/13/20 08:21 Anion Gap 11 (12-20) L 11/13/20 08:21 BUN 17 mg/dL (9-16) H 11/13/20 08:21 Creatinine 1.08 mg/dL (0.5-1.4) 11/13/20 08:21 Estim Creat Clear Calc 50.1 11/13/20 08:21 Estimated GFR > 60 11/13/20 08:21 POC Glucose 321 mg/dL (60-115) H 11/14/20 11:27 Fasting Glucose 161 mg/dL (60-99) H D 11/13/20 08:21 Calcium 8.7 mg/dL (8.4-10.2) D 11/13/20 08:21 COVID-19 (АЛЕКСАНДР) Negative (Negative) 11/12/20 10:50 COVID-19 Clin Com See Note 11/12/20 10:50 Discharge Plan Discharge Anticipated Discharge Date/Time: 11/15/20 13:56 Patient Disposition: Xfer SNF Referrals: [facility] [Other] (BLS TRANSPORT) [facility] [Outside] (RESUMPTION OF CARE ) Isaias Talamantes MD [Physician] - 2 Weeks Frederic Bone MD [Primary Care Provider] - Discharge Medications: New oxycodone-acetaminophen [Percocet] 5-325 mg tablet 1 - 2 tab PO Q4-6H PRN (Reason: pain) Qty: 30 RF: 0 oxycodone-acetaminophen [Percocet] 5-325 mg tablet 1 - 2 tab PO Q4-6H PRN (Reason: pain) Qty: 30 RF: 0 Continued insulin lispro 100 unit/mL Solution 1 sliding scale dose SUBCUT TID RF: 0 gabapentin 100 mg Capsule 100 mg PO BID RF: 0 levothyroxine 25 mcg tablet 25 mcg PO DAILY RF: 0 Lantus U-100 Insulin 100 unit/mL solution 25 unit subcut BID RF: 0 ondansetron HCl [Zofran] 4 mg tablet 4 mg PO TID RF: 0 gabapentin 100 mg capsule 100 mg PO DAILY RF: 0 bupropion HCl 150 mg tablet sustained-release 12 hr 150 mg PO QAM RF: 0 pantoprazole 40 mg tablet,delayed release (DR/EC) 40 mg PO DAILY RF: 0 sertraline 25 mg tablet 25 mg PO DAILY RF: 0 sertraline 50 mg tablet 50 mg PO DAILY RF: 0 Discharge Orders: Discharge Order (Routine); Ordered 11/15/20 Ordered By: Isaias Talamantes Diet: advance to usual diet and other Activity on Discharge: No heavy lifting Discharge Date/Time: 11/15/20 13:27 Activity Restrictions/Additional Instructions: If the incision area is tender, you may apply an ice pack for short intervals (No more than 20 minutes on, followed by at least 20 minutes off). Do not apply heat. Do not use creams, lotions, or topical antibiotics unless instructed to do so by your surgeon. These can cause infection or allergic reaction. Ok to shower. You have nela closing your incision and these will be removed approximately 10-14 days after surgery. TUBE FEEDING DIET: PROMOTE AT MAX GOAL 75CC/HR WITH 240CC FREE WATER FLUSH Q SHIFT TO PROVIDE 1800KCALS (25KCALS/KG), 112G PROTEIN (1.6G/KG), 2230CC TOTAL WATER FROM FORMULA AND FLUSHES (31CC/KG) Call Your Doctor If: -Your temperature exceeds 101.5? F -You experience excessive pain or swelling -You have an unexpected reaction to medication -You have excessive bleeding -You experience continued vomiting/nausea -Your incision begins to separate -Your incision shows signs of infection such as increased redness, swelling, excessive pain, drainage (light blood or clear fluid is normal) or heat Visit Report Forms: Patient Portal Discharge page Care Plan Goals: Return to baseline activity, toleration of tube feeds Health Concerns: Esophageal CA, s/p open gastrostomy tube placement Plan of Treatment: S/p open gastrostomy tube placement, tube feedings
[2020-11-14] MEDS: Insulin Lispro 100 UNIT/ML 3 ML VIAL SUBCUT ×3 (13:32→20:45)
[2020-11-14 15:39] VITALS: BP 156/92; PULSE 98; RESP 18; TEMP 36.3; O2SAT 97
[2020-11-14 16:41] LABS: Glucose, Whole Blood 241 mg/dL (60-115)
[2020-11-14] MEDS: Lactated Ringers 1,000 ML 60 ML IVCONT ×2 (17:58→23:45)
[2020-11-14 19:33] VITALS: BP 162/92; PULSE 85; RESP 95; TEMP 36.3; O2SAT 96
[2020-11-14 20:36] LABS: Glucose, Whole Blood 225 mg/dL (60-115)
[2020-11-14 23:22] VITALS: BP 149/72; PULSE 87; RESP 16; TEMP 36.1; O2SAT 95
[2020-11-15] MEDS: Morphine Sulfate 4 MG/ML CARTRIDGE 3 MG IVPUSH (02:28)
[2020-11-15 04:00] VITALS: BP 155/73; PULSE 97; RESP 16; TEMP 36.1; O2SAT 95
[2020-11-15] MEDS: Levothyroxine Sodium 25 MCG TABLET G-TUBE (06:05)
[2020-11-15 07:31] VITALS: BP 149/81; PULSE 90; RESP 19; TEMP 36.8; O2SAT 94
[2020-11-15] MEDS: Insulin Lispro 100 UNIT/ML 3 ML VIAL SUBCUT ×2 (07:44→12:15)
[2020-11-15 08:02] LABS: Glucose, Whole Blood 387 mg/dL (60-115)
[2020-11-15 08:21] LABS: Anion Gap 12 (12-20); Blood Urea Nitrogen 14 mg/dL (9-16); Calcium 8.4 mg/dL (8.4-10.2); Carbon Dioxide 24 mmol/L (22-29); Chloride 99 mmol/L (96-108); Creatinine Clr Calc Pharmacy 64.4; Estimated Glomerular Filt Rate > 60; Glucose Fasting 432 mg/dL (60-99); Potassium 4.4 mmol/l (3.3-5.1); Sodium 131 mmol/L (135-145)
--- NOTE | 2020-11-15 08:29 | PM.PNGS ---
Subjective Subjective Date of Service: 11/15/20 Interval history: Says he feels well No significant pain Tolerating tube feeds Physical Exam Vital Signs: Vital Signs: Last Vital Signs Temp 98.2 F 11/15/20 07:31 Pulse 90 11/15/20 07:31 Resp 19 11/15/20 07:31 BP 149/81 H 11/15/20 07:31 Pulse Ox 94 11/15/20 07:31 Body Mass Index 24.5 Const: General: comfortable and no acute distress Orientation/consciousness: patient oriented x3 Resp: Effort & Inspection: normal respiratory effort GI: Other: Short midline incision is well-healed, nela in place, G-tube in place on the left, appears secure Palpation (GI): Soft to palpation, no guarding and not rigid Neuro: General: patient oriented x3 Progress Note: A&P Assessment and plan (1) Adenocarcinoma of esophagus: Status: Acute Assessment and Plan: Status post open G-tube placement. Doing very well Incision healing well, not infected G-tube functioning well Patient tolerating tube feeds [facility] Risk Details Current Medications: Current Medications Generic Name Dose Route Start Last Admin Trade Name Freq PRN Reason Stop Dose Admin Bisacodyl 10 mg 11/12/20 14:32 Bisacodyl 10 Mg Supp.Rect MS DAILY PRN Constipation Lactated Ringer's 1,000 mls @ 60 mls/hr 11/12/20 14:32 11/14/20 23:45 Lr IVCONT 60 mls/hr .[id number] [facility] Administration Insulin Human Lispro 0 unit 11/14/20 16:30 11/15/20 07:44 Insulin Lispro 100 Unit/Ml 3 Ml Vial SUBCUT 10 unit QIDACHS [facility] Administration Protocol Levothyroxine Sodium 25 mcg 11/14/20 06:00 11/15/20 06:05 Levothyroxine Sodium 25 Mcg Tablet G-TUBE 25 mcg DAILY@0600 [facility] Administration Morphine Sulfate 3 mg 11/13/20 08:14 11/15/20 02:28 Morphine Sulfate 4 Mg/Ml Cartridge IVPUSH 3 mg Q3H PRN Administration Pain, Severe (Pain Scale 7-10) Ondansetron HCl 4 mg 11/12/20 14:32 Ondansetron Hcl 4 Mg/2 Ml Vial IVPUSH Q6H PRN Nausea/vomiting Oxycodone HCl 5 mg 11/13/20 08:09 Oxycodone Hcl Immed Release 5 Mg Tablet PO Q4H PRN Pain, Moderate (Pain Scale 4-6 Pharmacy Consult 1 each 11/12/20 20:11 Consult Rx Perform Med Rec MISCELLANE ONCE PRN Consult order Time Spent With Patient Time: Total time spent is greater than 50% in coordination of care (as documented) at patient's floor/unit and/or counseling patient: Time with patient: 15 - 24 minutes
[2020-11-15 09:30] VITALS: BMI 25.5
--- NOTE | 2020-11-15 09:36 | HO.PM.IMPN ---
Subjective Subjective Date of Service: 11/15/20 Interval History: no issues Cardiovascular Cardiovascular: Reports no additional cardiovascular complaints Gastrointestinal Gastrointestinal: Reports no additional gastrointestinal complaints Physical Exam Vital Signs: Vital Signs: Last Vital Signs Temp 98.2 F 11/15/20 07:31 Pulse 90 11/15/20 07:31 Resp 19 11/15/20 07:31 BP 149/81 H 11/15/20 07:31 Pulse Ox 94 11/15/20 07:31 Body Mass Index 24.5 General: AO X 3, no acute distress Resp: CTA bilateral CVS: S1,S2,RRR GI: soft, non tender, non distended Neuro: motor grossly intact Psych: appropriate affect Objective Data Current Medications Generic Name Dose Route Start Last Admin Trade Name Freq PRN Reason Stop Dose Admin Bisacodyl 10 mg 11/12/20 14:32 Bisacodyl 10 Mg Supp.Rect MA DAILY PRN Constipation Lactated Ringer's 1,000 mls @ 60 mls/hr 11/12/20 14:32 11/14/20 23:45 Lr IVCONT 60 mls/hr .[id number] [facility] Administration Insulin Human Lispro 0 unit 11/14/20 16:30 11/15/20 07:44 Insulin Lispro 100 Unit/Ml 3 Ml Vial SUBCUT 10 unit QIDACHS [facility] Administration Protocol Levothyroxine Sodium 25 mcg 11/14/20 06:00 11/15/20 06:05 Levothyroxine Sodium 25 Mcg Tablet G-TUBE 25 mcg DAILY@0600 [facility] Administration Morphine Sulfate 3 mg 11/13/20 08:14 11/15/20 02:28 Morphine Sulfate 4 Mg/Ml Cartridge IVPUSH 3 mg Q3H PRN Administration Pain, Severe (Pain Scale 7-10) Ondansetron HCl 4 mg 11/12/20 14:32 Ondansetron Hcl 4 Mg/2 Ml Vial IVPUSH Q6H PRN Nausea/vomiting Oxycodone HCl 5 mg 11/13/20 08:09 Oxycodone Hcl Immed Release 5 Mg Tablet PO Q4H PRN Pain, Moderate (Pain Scale 4-6 Pharmacy Consult 1 each 11/12/20 20:11 Consult Rx Perform Med Rec MISCELLANE ONCE PRN Consult order Labs CBC & Chem 7: 11/13/20 08:21 11/15/20 06:05 Assessment and Plan (1) Esophageal cancer: Status: Acute Assessment and Plan: 80-year-old man admitted by General surgery with history of esophageal cancer and is status post gastrostomy tube placement 11/12 STARLA resolved DM insulin hypothyroid synthroid medically stable, will sign off
--- NOTE | 2020-11-15 11:26 | MHC.CM.PN ---
PT DISCHARGING BACK TO [facility] VIA [facility] ([facility]), 1PM PICK-UP SCHEDULED, PENDING RAPID COVOD. CM WILL FAX FINAL DISCHARGE [employer] WHEN AVAILABLE.
[2020-11-15 11:42] VITALS: BP 128/80; PULSE 96; RESP 20; TEMP 36.6; O2SAT 96
[2020-11-15 11:50] LABS: Glucose, Whole Blood 309 mg/dL (60-115)
[2020-11-15 12:27] LABS: COVID-19 Test Negative (Negative); IDNOW Serial# 9DD0AD1C
== END 2020-11-15 13:27 | disposition skilled nursing facility (03) | DRG 328 ==
LOC: HO.S3 11:57
PROVIDERS: Internal Medicine; Physician Assistant Surgical; Admitting Provider Surgery; PCP Internal Medicine; Visit Provider Surgery
DX: C15.9 Malignant neoplasm of esophagus, unspecified (principal); N40.0 Benign prostatic hyperplasia without lower urinary tract symptoms; I12.9 Hypertensive chronic kidney disease with stage 1 through stage 4 chronic kidney disease, or unspecified chronic kidney disease; E11.22 Type 2 diabetes mellitus with diabetic chronic kidney disease; F32.9 Major depressive disorder, single episode, unspecified; E03.9 Hypothyroidism, unspecified; Z20.828 Contact with and (suspected) exposure to other viral communicable diseases; N18.9 Chronic kidney disease, unspecified; Z88.0 Allergy status to penicillin; Z88.2 Allergy status to sulfonamides; Z79.4 Long term (current) use of insulin; Z79.891 Long term (current) use of opiate analgesic; Z79.899 Other long term (current) drug therapy; Z66 Do not resuscitate
CPT/HCPCS: 36415; 71046; 73110; 73130; 80048; 82947; 85025; 87635; 93005; 99024; 99212; C1758; J0131; J0690; J2270; J2370; J2405; J3010

== ENCOUNTER 2020-11-19 05:37 | Outpatient (REF) | payer MEDICARE, SELFPAY ==
[2020-11-19 09:31] LABS: Anion Gap 13 (12-20); Blood Urea Nitrogen 29 mg/dL (9-16); Carbon Dioxide 28 mmol/L (22-29); Chloride 98 mmol/L (96-108); Estimated Glomerular Filt Rate 58; Potassium 5.1 mmol/l (3.3-5.1); Sodium 134 mmol/L (135-145)
== END 2020-11-19 05:38 | disposition home or self-care (01) ==
LOC: HO.HSH4W 05:37
PROVIDERS: Visit Provider Internal Medicine
DX: E11.22 Type 2 diabetes mellitus with diabetic chronic kidney disease (principal); N18.9 Chronic kidney disease, unspecified
CPT/HCPCS: 80051; 82565; 84520

== ENCOUNTER 2020-11-20 | Outpatient (REF) | payer MEDICARE, SELFPAY ==
[2020-11-20 08:19] LABS: Basophils Absolute Auto 0.1 X10*3/uL (0.0-0.2); Basophils Percent Auto 0.3 % (0-2); Eosinophils Absolute Auto 0.2 X10*3/uL (0.0-0.4); Eosinophils Percent Auto 0.7 % (0-4); Hematocrit 35.1 % (42-52); Hemoglobin 11.7 g/dl (14.0-18.0); Imm Gran Abs Auto 0.23 X10*3/uL (0.00-0.03); Lymphocytes Absolute Auto 0.9 X10*3/uL (1.2-4.9); MANUAL DIFF FLAG SCAN; Mean Corpuscular HGB Conc 33.3 g/dl (31.0-36.0); Mean Corpuscular Hemoglobin 29.3 pg (27.0-33.0); Mean Platelet Volume 9.7 fL (9.4-12.4); Monocytes Absolute Auto 1.4 X10*3/uL (0.1-1.2); Monocytes Percent Auto 6.3 % (2-11); Neutrophils Absolute Auto 20.1 X10*3/uL (2.0-8.3); Neutrophils Percent Auto 87.7 % (45-73); Platelet Count 432 X10*3/uL (160-400); Red Blood Count 3.99 X10*6/uL (4.60-5.80); Red Cell Distribution Width 14.9 % (11.0-16.0); SCAN SMEAR FLAG 1; White Blood Count 22.9 X10*3/uL (4.8-10.8)
[2020-11-20 09:05] LABS: SLIDE REVIEW VERIFIED
== END 2020-11-20 05:32 ==
LOC: HO.HSH4W
PROVIDERS: Visit Provider Internal Medicine
DX: E11.9 Type 2 diabetes mellitus without complications (principal)
CPT/HCPCS: 36415; 85025

== ENCOUNTER 2020-11-20 19:56 | Emergency (ER) | payer MEDICARE, SELFPAY ==
[2020-11-20 20:09] VITALS: BP 107/54; BP 116/74; PULSE 80; PULSE 87; RESP 16; TEMP 36.4; O2SAT 96; BMI 23.8
--- NOTE | 2020-11-20 21:59 | ED_ITS ---
HPI - Abdominal Pain General Chief Complaint: Abdominal Pain Stated Complaint: ABD PAIN S/P GTUBE PLACEMENT 5DAYS AGO Time Seen by Provider: 11/20/20 21:31 Source: patient Mode of arrival: EMS History of Present Illness HPI narrative: This is an 80-year-old male who [facility] and states that he ate dinner and then asked for pain medication and then the next thing he knew 2 guys showed up and brought him to [facility]. Patient denies nausea, vomiting, fever, chills and states that he is having bowel movements and urinating without any difficulty. Related Data Home Medications Medication Instructions Recorded Confirmed levothyroxine 25 mcg tablet 25 mcg PO DAILY 09/12/20 11/12/20 insulin lispro 1 sliding scale dose SUBCUT TID 10/05/20 11/12/20 bupropion HCl 150 mg tablet,12 hr 150 mg PO QAM 11/09/20 11/12/20 sustained-release gabapentin 100 mg capsule 100 mg PO DAILY 11/09/20 11/12/20 insulin glargine 100 unit/mL 25 unit SUBCUT BID ml 11/09/20 11/12/20 subcutaneous solution ondansetron HCl 4 mg tablet 4 mg PO TID tab 11/09/20 11/12/20 pantoprazole 40 mg tablet,delayed 40 mg PO DAILY 11/09/20 11/12/20 release sertraline 25 mg tablet 25 mg PO DAILY 11/09/20 11/12/20 sertraline 50 mg tablet 50 mg PO DAILY 11/09/20 11/12/20 gabapentin 100 mg PO BID 11/12/20 11/12/20 Previous Rx's Medication Instructions Recorded oxycodone-acetaminophen [Percocet] 1 - 2 tab PO Q4-6H PRN #30 tab 11/15/20 oxycodone-acetaminophen [Percocet] 1 - 2 tab PO Q4-6H PRN #30 tab 11/15/20 Allergies Allergy/AdvReac Type Severity Reaction Status Date / Time amoxicillin [AMOXICILLIN] Allergy Unknown SWELLING Verified 10/05/20 21:57 bee pollen [BEE STINGS] Allergy Unknown SWELLING Verified 10/05/20 21:57 clavulanic acid [Augmentin] Allergy Unknown Unknown Verified 10/05/20 21:57 shellfish derived Allergy Unknown HIVES Verified 10/05/20 21:57 [SHELLFISH DERIVED] turkey [TURKEY] Allergy Unknown SWELLING Verified 10/05/20 21:57 bees Allergy Unknown Swelling Uncoded 10/05/20 21:57 poultry Allergy Unknown Hives Uncoded 10/05/20 21:57 shellfish Allergy Unknown Hives Uncoded 10/05/20 21:57 Sulfa Allergy Unknown Hives Uncoded 10/05/20 21:57 [place] Allergy Unknown Hives Uncoded 10/05/20 21:57 Review of Systems Review of Systems Pertinent positives and negatives as stated in HPI and 10 point review of systems is otherwise negative. Physical Exam Vital Signs: Vital Signs: Last Vital Signs Temp 97.5 F 11/20/20 20:09 Pulse 87 11/20/20 20:09 Resp 16 11/20/20 20:09 BP 107/54 L 11/20/20 20:09 Pulse Ox 96 11/20/20 20:09 Body Mass Index 23.8 VITAL SIGNS: Reviewed. GENERAL: Well developed, well nourished, in no acute distress. HEAD: Normocephalic/atraumatic, EYES: PERRLA, EOMI intact without pain OROPHARYNX: no oral lesions noted, dry mucosa NECK: Supple, no adenopathy LUNGS: Normal breath sounds. No adventitious sounds or accessory muscle use. SpO2<96> CARDIOVASCULAR: Regular rate and rhythm without noted murmurs, no JVD or lower extremity edema. ABDOMEN: Soft, non-tender, non-distended with bowel sounds. Well-healing small incision at the upper mid abdomen with nela intact no evidence of concerning erythema, swelling, drainage, peg is attached by 4 sutures to the abdominal wall without evidence of infection (erythema, swelling, drainage). No rigidity. No guarding. No palpable masses or hernias noted NEUROLOGIC: Alert and oriented x 3. Course Course Course Narrative: This is a 80-year-old male with history and clinical presentation consistent with recent surgery for adenocarcinoma of the esophagus with PEG tube placement that has been well-functioning as [facility]. As per their report patient has not taken oral intake very well and they were concerned for a temperature of 99.2?. On evaluation at bedside and discussion with patient there are no concerning signs or symptoms obstruction, infection. Patient appears to be otherwise doing well and is asking why he is here. There were no concerns expressed by the facility that the G-tube was malfunctioning. [facility] and has a follow-up appointment with Dr. Talamantes already in place. Discharge Plan Discharge Clinical Impression: Encounter for medical screening examination Patient Disposition: er [facility] Additional Instructions: Patient should resume all medications as prescribed, to include instructions by the surgeon for the use of the G-tube, and patient should follow-up as scheduled with surgery. If there is a malfunction of the feeding tube or any other concerns please do not hesitate to have the patient return to this emergency room. Prescriptions: No Action insulin lispro 100 unit/mL Solution 1 sliding scale dose SUBCUT TID RF: 0 gabapentin 100 mg Capsule 100 mg PO BID RF: 0 oxycodone-acetaminophen [Percocet] 5-325 mg tablet 1 - 2 tab PO Q4-6H PRN (Reason: pain) Qty: 30 RF: 0 oxycodone-acetaminophen [Percocet] 5-325 mg tablet 1 - 2 tab PO Q4-6H PRN (Reason: pain) Qty: 30 RF: 0 levothyroxine 25 mcg tablet 25 mcg PO DAILY RF: 0 Lantus U-100 Insulin 100 unit/mL solution 25 unit subcut BID RF: 0 ondansetron HCl [Zofran] 4 mg tablet 4 mg PO TID RF: 0 gabapentin 100 mg capsule 100 mg PO DAILY RF: 0 bupropion HCl 150 mg tablet sustained-release 12 hr 150 mg PO QAM RF: 0 pantoprazole 40 mg tablet,delayed release (DR/EC) 40 mg PO DAILY RF: 0 sertraline 25 mg tablet 25 mg PO DAILY RF: 0 sertraline 50 mg tablet 50 mg PO DAILY RF: 0 Referrals: Isaias Talamantes MD [Physician] - 2 days (Regularly scheduled) [facility] Past Medical History Source: nursing notes reviewed Medical History BPH (benign prostatic hyperplasia) Chronic kidney disease Depression Diabetes Dysphagia Esophageal cancer HTN (hypertension), benign Hypothyroid Lumbar radiculopathy Neuropathy NIDDY (non-insulin dependent diabetes mellitus in young) Obesity Post herpetic neuralgia Urinary catheter in place Surgical History Hx of cholecystectomy Family History Family History Father History of heart attack Mother Hx of diabetes mellitus Hx of arthrodesis Social History Social History Household Members: None Housing: Jail Alcohol intake: never Smoking Status: Unknown if ever smoked Advance Directives: Yes Advance Directives on File: Yes Advance Directives Date on File: 09/19/20 service: Yes Current occupational status: disabled
--- NOTE | 2020-11-20 23:15 | PC.NURSE ---
PLAN TO DISCHARGE BACK TO [facility]. NO ACUTE DISTRESS NOTED. AWAITING AMBULANCE RIDE BACK TO [facility]. HERNÁN (HOSPICE PHYSICIAN) SPOKE WITH STAFF AT [facility] AND GAVE UPDATE.
[2020-11-21] VITALS: BP 111/53; PULSE 63; RESP 16; TEMP 37.2; O2SAT 97
== END 2020-11-21 01:41 | disposition skilled nursing facility (03) ==
PROVIDERS: Emergency Provider Student in an Organized Health Care Education/Training Program
DX: R10.9 Unspecified abdominal pain (principal); Z79.899 Other long term (current) drug therapy; Z79.4 Long term (current) use of insulin
CPT/HCPCS: 99283; 99284

== ENCOUNTER 2020-11-21 07:04 | Outpatient (REF) | payer MEDICARE, SELFPAY ==
[2020-11-21 07:43] LABS: MANUAL DIFF FLAG NO
[2020-11-21 07:46] LABS: Basophils Absolute Auto 0.1 X10*3/uL (0.0-0.2); Basophils Percent Auto 0.4 % (0-2); Eosinophils Absolute Auto 0.5 X10*3/uL (0.0-0.4); Eosinophils Percent Auto 2.1 % (0-4); Hematocrit 37.6 % (42-52); Imm Gran Abs Auto 0.22 X10*3/uL (0.00-0.03); Lymphocytes Absolute Auto 1.4 X10*3/uL (1.2-4.9); Lymphocytes Percent Auto 6.6 % (20-40); Mean Corpuscular HGB Conc 31.9 g/dl (31.0-36.0); Mean Corpuscular Hemoglobin 28.4 pg (27.0-33.0); Mean Corpuscular Volume 88.9 fL (80-98); Mean Platelet Volume 10.1 fL (9.4-12.4); Monocytes Absolute Auto 1.1 X10*3/uL (0.1-1.2); Monocytes Percent Auto 5.1 % (2-11); Neutrophils Absolute Auto 18.3 X10*3/uL (2.0-8.3); Neutrophils Percent Auto 84.8 % (45-73); Platelet Count 515 X10*3/uL (160-400); Red Blood Count 4.23 X10*6/uL (4.60-5.80); Red Cell Distribution Width 14.7 % (11.0-16.0); White Blood Count 21.6 X10*3/uL (4.8-10.8)
[2020-11-21 08:11] LABS: Anion Gap 15 (12-20); Blood Urea Nitrogen 39 mg/dL (9-16); Carbon Dioxide 25 mmol/L (22-29); Chloride 96 mmol/L (96-108); Estimated Glomerular Filt Rate 50; Potassium 5.1 mmol/l (3.3-5.1); Sodium 131 mmol/L (135-145)
== END 2020-11-21 07:05 | disposition home or self-care (01) ==
LOC: HO.HSH4W 07:04
PROVIDERS: Visit Provider Internal Medicine
DX: E11.9 Type 2 diabetes mellitus without complications (principal)
CPT/HCPCS: 36415; 80051; 82565; 84520; 85025

== ENCOUNTER 2020-11-22 07:12 | Outpatient (REF) | payer MEDICARE, SELFPAY ==
[2020-11-22 09:08] LABS: MANUAL DIFF FLAG NO
[2020-11-22 09:09] LABS: Basophils Absolute Auto 0.1 X10*3/uL (0.0-0.2); Basophils Percent Auto 0.4 % (0-2); Eosinophils Absolute Auto 0.2 X10*3/uL (0.0-0.4); Eosinophils Percent Auto 1.1 % (0-4); Hematocrit 34.2 % (42-52); Hemoglobin 11.2 g/dl (14.0-18.0); Imm Gran Abs Auto 0.14 X10*3/uL (0.00-0.03); Imm Gran Pct Auto 0.7 % (0.0-0.4); Lymphocytes Absolute Auto 0.7 X10*3/uL (1.2-4.9); Lymphocytes Percent Auto 3.9 % (20-40); Mean Corpuscular HGB Conc 32.7 g/dl (31.0-36.0); Mean Corpuscular Hemoglobin 28.7 pg (27.0-33.0); Mean Corpuscular Volume 87.7 fL (80-98); Monocytes Absolute Auto 1.2 X10*3/uL (0.1-1.2); Monocytes Percent Auto 6.5 % (2-11); Neutrophils Absolute Auto 16.4 X10*3/uL (2.0-8.3); Neutrophils Percent Auto 87.4 % (45-73); Platelet Count 466 X10*3/uL (160-400); Red Cell Distribution Width 14.8 % (11.0-16.0); White Blood Count 18.8 X10*3/uL (4.8-10.8)
== END 2020-11-22 07:13 | disposition home or self-care (01) ==
LOC: HO.HSH4W 07:12
PROVIDERS: Visit Provider Internal Medicine
DX: E87.5 Hyperkalemia (principal); D72.829 Elevated white blood cell count, unspecified
CPT/HCPCS: 36415; 85025

== ENCOUNTER 2020-11-24 | Outpatient (REF) | payer MEDICARE, SELFPAY ==
[2020-11-24 07:10] LABS: MANUAL DIFF FLAG NO
[2020-11-24 07:42] LABS: Anion Gap 13 (12-20); Blood Urea Nitrogen 44 mg/dL (9-16); Carbon Dioxide 27 mmol/L (22-29); Chloride 100 mmol/L (96-108); Estimated Glomerular Filt Rate > 60; Potassium 5.4 mmol/l (3.3-5.1); Sodium 135 mmol/L (135-145)
[2020-11-24 07:46] LABS: Basophils Absolute Auto 0.1 X10*3/uL (0.0-0.2); Basophils Percent Auto 0.8 % (0-2); Eosinophils Absolute Auto 0.4 X10*3/uL (0.0-0.4); Eosinophils Percent Auto 2.5 % (0-4); Hematocrit 34.8 % (42-52); Hemoglobin 11.3 g/dl (14.0-18.0); Imm Gran Abs Auto 0.12 X10*3/uL (0.00-0.03); Imm Gran Pct Auto 0.8 % (0.0-0.4); Lymphocytes Absolute Auto 1.1 X10*3/uL (1.2-4.9); Lymphocytes Percent Auto 7.4 % (20-40); Mean Corpuscular HGB Conc 32.5 g/dl (31.0-36.0); Mean Corpuscular Volume 89.2 fL (80-98); Mean Platelet Volume 9.6 fL (9.4-12.4); Monocytes Absolute Auto 1.1 X10*3/uL (0.1-1.2); Monocytes Percent Auto 7.3 % (2-11); Neutrophils Absolute Auto 12.2 X10*3/uL (2.0-8.3); Neutrophils Percent Auto 81.2 % (45-73); Platelet Count 540 X10*3/uL (160-400); Red Cell Distribution Width 14.7 % (11.0-16.0)
== END 2020-11-24 00:01 ==
LOC: HO.HSH4W
PROVIDERS: Visit Provider Internal Medicine
DX: E87.6 Hypokalemia (principal); D72.829 Elevated white blood cell count, unspecified
CPT/HCPCS: 36415; 80051; 82565; 84520; 85025

== ENCOUNTER 2020-11-26 06:23 | Outpatient (REF) | payer MEDICARE, SELFPAY ==
[2020-11-26 10:21] LABS: Alanine Aminotransferase 85 U/L (0-40); Albumin Level 3.4 g/dL (3.5-5.0); Alkaline Phosphatase 191 U/L (39-117); Anion Gap 18 (12-20); Aspartate Amino Transferase 41 U/L (5-37); Bilirubin Total 0.5 mg/dL (0.0-1.0); Blood Urea Nitrogen 41 mg/dL (9-16); Calcium 9.8 mg/dL (8.4-10.2); Carbon Dioxide 26 mmol/L (22-29); Chloride 103 mmol/L (96-108); Estimated Glomerular Filt Rate > 60; Glucose Random 51 mg/dL (60-115); Potassium 5.2 mmol/l (3.3-5.1); Sodium 142 mmol/L (135-145); Total Protein 7.3 g/dL (6.5-8.0)
== END 2020-11-26 06:24 | disposition home or self-care (01) ==
LOC: HO.HSH4W 06:23
PROVIDERS: Visit Provider Internal Medicine
DX: Z13.89 Encounter for screening for other disorder (principal)
CPT/HCPCS: 36415; 80053; 99212

== ENCOUNTER 2020-11-26 12:06 | Emergency (ER) | payer MEDICARE, SELFPAY ==
--- NOTE | 2020-11-26 12:15 | XR_ITS ---
EXAMINATION: XR ABDOMEN KUB CLINICAL INDICATION: G-tube check COMPARISON: Previous CT of the abdomen and pelvis September 2020 TECHNIQUE: Portable AP view of the abdomen. 30 mL of Gastrografin was administered by Dr. Limon for G-tube check FINDINGS: There is a G-tube in the stomach. There is oral contrast in the stomach and proximal small bowel. No extravasation or free air is seen. There are no dilated loops of bowel. There is elevation of the right hemidiaphragm. XR/XR abdomen 1V IMPRESSION: Satisfactory position of G-tube in the stomach. No leak is seen.
--- NOTE | 2020-11-26 12:20 | ED.GENADULT ---
HPI - General Adult General Chief complaint: General Medical Stated complaint: GTUBE ISSUE Time Seen by Provider: 11/26/20 12:15 Source: patient Mode of arrival: wheelchair Limitations: no limitations History of Present Illness HPI narrative: Pleasant 80-year-old male from the source home with history of a BPH, chronic kidney disease, depression, diabetes, dysphagia, esophageal CA, hypertension, hypothyroidism, neuropathy, vjg-[id number] diabetes, chronic Avila catheter and surgical history of colostomy who has had diagnosis of esophageal carcinoma subsequently requiring a G-tube which he has had in since October and past several days G-tube unable to flush [facility] he saw General surgery prior to arrival Dr. Talamantes as for the dislodged tube but subsequently hard time replacing it smaller caliber rubber catheter was placed and sent to the emergency room for contrast study for placement. Offers no other complaints. Onset (ago): day(s) Related Data Home Medications Medication Instructions Recorded Confirmed levothyroxine 25 mcg tablet 25 mcg PO DAILY 09/12/20 11/12/20 insulin lispro 1 sliding scale dose SUBCUT TID 10/05/20 11/12/20 bupropion HCl 150 mg tablet,12 hr 150 mg PO QAM 11/09/20 11/12/20 sustained-release gabapentin 100 mg capsule 100 mg PO DAILY 11/09/20 11/12/20 insulin glargine 100 unit/mL 25 unit SUBCUT BID ml 11/09/20 11/12/20 subcutaneous solution ondansetron HCl 4 mg tablet 4 mg PO TID tab 11/09/20 11/12/20 pantoprazole 40 mg tablet,delayed 40 mg PO DAILY 11/09/20 11/12/20 release sertraline 25 mg tablet 25 mg PO DAILY 11/09/20 11/12/20 sertraline 50 mg tablet 50 mg PO DAILY 11/09/20 11/12/20 gabapentin 100 mg PO BID 11/12/20 11/12/20 Previous Rx's Medication Instructions Recorded oxycodone-acetaminophen [Percocet] 1 - 2 tab PO Q4-6H PRN #30 tab 11/15/20 oxycodone-acetaminophen [Percocet] 1 - 2 tab PO Q4-6H PRN #30 tab 11/15/20 Allergies Allergy/AdvReac Type Severity Reaction Status Date / Time amoxicillin [AMOXICILLIN] Allergy Unknown SWELLING Verified 11/26/20 12:30 bee pollen [BEE STINGS] Allergy Unknown SWELLING Verified 11/26/20 12:30 clavulanic acid [Augmentin] Allergy Unknown Unknown Verified 11/26/20 12:30 shellfish derived Allergy Unknown HIVES Verified 11/26/20 12:30 [SHELLFISH DERIVED] turkey [TURKEY] Allergy Unknown SWELLING Verified 11/26/20 12:30 bees Allergy Unknown Swelling Uncoded 10/05/20 21:57 poultry Allergy Unknown Hives Uncoded 10/05/20 21:57 shellfish Allergy Unknown Hives Uncoded 10/05/20 21:57 Sulfa Allergy Unknown Hives Uncoded 10/05/20 21:57 [place] Allergy Unknown Hives Uncoded 10/05/20 21:57 Review of Systems Review of Systems: Constitutional: No Weight loss, No Fever, No Chills, No Night Sweats, No Fatigue, No Malaise ENT/Mouth: No Hearing loss, No Ear Pain, No Nasal Congestion, No Sinus Pain, No Hoarseness, No sore throat, No Rhinorrhea, No Swallowing Difficulty Eyes: No Eye Pain, No Swelling, No Redness, No Foreign Body, No Discharge, No Vision Changes Cardiovascular: No Chest Pain, No SOB, No Dyspnea on Exertion, No Orthopnea, No Edema, No Palpitations Respiratory: No Cough, No Sputum, No Wheezing, No Smoke Exposure, No Dyspnea Gastrointestinal: No Nausea, No Vomiting, No Diarrhea, No Constipation, No abdominal Pain, No Hematochezia, No Melena Genitourinary: No Dysuria, No Urinary Frequency, No Hematuria, No Urinary Incontinence, No Urgency, No Flank Pain Musculoskeletal: No joint pain, No Myalgias, No Joint Swelling Skin: No Skin Lesions, No rash Neuro: No Weakness, No Numbness, No Paresthesias, No Loss of Consciousness, No Dizziness, No Headache Psych: No Social Issues Heme/Lymph: No Bruising, No Bleeding,No Lymphadenopathy Endocrine: No Polyuria, No Polydipsia, No Temperature Intolerance Yes all other systems are reviewed and are negative [facility] Past Medical History Medical History BPH (benign prostatic hyperplasia) Chronic kidney disease Depression Diabetes Dysphagia Esophageal cancer HTN (hypertension), benign Hypothyroid Lumbar radiculopathy Neuropathy NIDDY (non-insulin dependent diabetes mellitus in young) Obesity Post herpetic neuralgia Urinary catheter in place Surgical History (Updated 11/26/20 @ 12:08 by Isaias Talamantes MD) Hx of cholecystectomy Status post gastrostomy tube (G tube) placement, follow-up exam Family History Family History Father History of heart attack Mother Hx of diabetes mellitus Hx of arthrodesis Social History Social History Household Members: None Housing: [facility] Alcohol intake: never Smoking Status: Never smoker Advance Directives: Yes Advance Directives on File: Yes Advance Directives Date on File: 09/19/20 service: Yes Current occupational status: disabled Physical Exam Vital Signs: Vital Signs: Last Vital Signs Temp 97.7 F 11/26/20 12:30 Pulse 110 H 11/26/20 12:30 Resp 18 11/26/20 12:30 BP 117/74 11/26/20 12:30 Pulse Ox 97 11/26/20 12:30 Body Mass Index 24.7 Reviewed Const: General: cooperative and healthy appearing; No acute distress or intoxicated appearing Nutritional Appearance: average body habitus Orientation/consciousness: patient oriented x3 HENMT: Head: Yes normal to inspection Ears: hearing grossly normal bilaterally Eyes: General: appearance normal, both eyes and all related structures Visual Brian: normal visual brian by confrontation Chest: Chest palpation & inspection: normal inspection of the chest Resp: Effort & Inspection: normal respiratory effort Auscultation: clear to auscultation bilaterally Cardio: Jugular venous distension: no JVD Rhythm: regular rhythm Heart sounds: S1 normal heart sound present GI: Other: Healing surgical incision just inferior to the epigastrium left upper quadrant G-tube; as rubber catheter in place that is capped off. Inspection: Yes normal to inspection Palpation (GI): Soft to palpation Percussion: Yes normal to percussion Auscultation: normal bowel sounds : General: Yes no CVA tenderness Back/Spine/Pelvis: Back: no CVA tenderness Skin: General skin exam: no rashes or lesions noted Neuro: General: patient oriented x3 Extrem: General: Yes normal to inspection Course Course Course Narrative: Center for G-tube placement confirmation imaging by General surgery. No other complaints. Gastrografin install per protocol one-view abdomen x-ray shows satisfactory position of the G-tube in the stomach. No leak is seen. Abdominal exam is benign. Medical Decision Making Imaging Data Abdominal x-ray: Radiologist's impression: [facility] [address] [place] [address] XRay Report Signed Patient: Gustavo Sanches AMR#: [id number] : 1940Acct:[id number] Age/Sex: 80 / MADM Date: 11/26/20 Loc: HO.ED Attending Dr: Ordering Physician: Bill Limon NP Date of Service: 11/26/20 Procedure(s): XR abdomen 1V Accession Number(s): [id number] cc: Bill Limon K[employer] MANAGER~ EXAMINATION: XR ABDOMEN KUB CLINICAL INDICATION: G-tube check COMPARISON: Previous CT of the abdomen and pelvis September 2020 TECHNIQUE: Portable AP view of the abdomen. 30 mL of Gastrografin was administered by Dr. Limon for G-tube check FINDINGS: There is a G-tube in the stomach. There is oral contrast in the stomach and proximal small bowel. No extravasation or free air is seen. There are no dilated loops of bowel. There is elevation of the right hemidiaphragm. XR/XR abdomen 1V IMPRESSION: Satisfactory position of G-tube in the stomach. No leak is seen. Dictated By:DANNY NICOLE MD Signed By:<Electronically signed by DANNY NICOLE MD in OV>11/26/20 1310 DD/ 1215 TD/TT: Parts Finisher: EZ Discharge Plan Discharge Clinical Impression: Encounter for imaging study to confirm gastrojejunal tube placement Patient Disposition: Home, Self-Care Additional Instructions: Your G-tube is in place Follow-up with your general surgery as planned Return if any concerns or worsening symptoms Thank you Prescriptions: No Action insulin lispro 100 unit/mL Solution 1 sliding scale dose SUBCUT TID RF: 0 gabapentin 100 mg Capsule 100 mg PO BID RF: 0 oxycodone-acetaminophen [Percocet] 5-325 mg tablet 1 - 2 tab PO Q4-6H PRN (Reason: pain) Qty: 30 RF: 0 oxycodone-acetaminophen [Percocet] 5-325 mg tablet 1 - 2 tab PO Q4-6H PRN (Reason: pain) Qty: 30 RF: 0 levothyroxine 25 mcg tablet 25 mcg PO DAILY RF: 0 Lantus U-100 Insulin 100 unit/mL solution 25 unit subcut BID RF: 0 ondansetron HCl [Zofran] 4 mg tablet 4 mg PO TID RF: 0 gabapentin 100 mg capsule 100 mg PO DAILY RF: 0 bupropion HCl 150 mg tablet sustained-release 12 hr 150 mg PO QAM RF: 0 pantoprazole 40 mg tablet,delayed release (DR/EC) 40 mg PO DAILY RF: 0 sertraline 25 mg tablet 25 mg PO DAILY RF: 0 sertraline 50 mg tablet 50 mg PO DAILY RF: 0 Referrals: Frederic Shea MD [Primary Care Provider] - 1 week
[2020-11-26 12:30] VITALS: BP 117/74; PULSE 110; RESP 18; TEMP 36.5; O2SAT 97; BMI 24.7
[2020-11-26] MEDS: Diatrizoate Meglumine, Sodium 30 ML SOLUTION PO (13:05)
[2020-11-26 14:00] VITALS: BP 120/70; PULSE 98; RESP 18; O2SAT 97
== END 2020-11-26 14:46 | disposition home or self-care (01) ==
PROVIDERS: Emergency Provider Emergency Medicine; PCP Internal Medicine Endocrinology, Diabetes & Metabolism
DX: Z43.1 Encounter for attention to gastrostomy (principal); E11.22 Type 2 diabetes mellitus with diabetic chronic kidney disease; I12.9 Hypertensive chronic kidney disease with stage 1 through stage 4 chronic kidney disease, or unspecified chronic kidney disease; N18.9 Chronic kidney disease, unspecified; Z85.01 Personal history of malignant neoplasm of esophagus; Z96.0 Presence of urogenital implants; Z79.899 Other long term (current) drug therapy
CPT/HCPCS: 36415; 74018; 80053; 99212; 99283; 99284

== ENCOUNTER 2020-11-30 10:14 | Outpatient (REF) | payer MEDICARE, SELFPAY ==
[2020-11-30 09:41] LABS: MANUAL DIFF FLAG NO
[2020-11-30 09:42] LABS: Basophils Absolute Auto 0.1 X10*3/uL (0.0-0.2); Basophils Percent Auto 0.8 % (0-2); Eosinophils Absolute Auto 0.3 X10*3/uL (0.0-0.4); Eosinophils Percent Auto 2.1 % (0-4); Hematocrit 35.4 % (42-52); Hemoglobin 11.3 g/dl (14.0-18.0); Imm Gran Abs Auto 0.19 X10*3/uL (0.00-0.03); Imm Gran Pct Auto 1.4 % (0.0-0.4); Lymphocytes Absolute Auto 1.4 X10*3/uL (1.2-4.9); Lymphocytes Percent Auto 10.2 % (20-40); Mean Corpuscular HGB Conc 31.9 g/dl (31.0-36.0); Mean Corpuscular Hemoglobin 28.8 pg (27.0-33.0); Mean Corpuscular Volume 90.1 fL (80-98); Mean Platelet Volume 9.7 fL (9.4-12.4); Monocytes Percent Auto 7.2 % (2-11); Neutrophils Absolute Auto 10.4 X10*3/uL (2.0-8.3); Neutrophils Percent Auto 78.3 % (45-73); Platelet Count 637 X10*3/uL (160-400); Red Blood Count 3.93 X10*6/uL (4.60-5.80); Red Cell Distribution Width 14.6 % (11.0-16.0); White Blood Count 13.3 X10*3/uL (4.8-10.8)
[2020-11-30 10:10] LABS: Anion Gap 18 (12-20); Blood Urea Nitrogen 46 mg/dL (9-16); Carbon Dioxide 24 mmol/L (22-29); Chloride 101 mmol/L (96-108); Estimated Glomerular Filt Rate 46; Potassium 5.5 mmol/l (3.3-5.1); Sodium 137 mmol/L (135-145)
== END 2020-11-30 10:15 | disposition home or self-care (01) ==
LOC: HO.HSH4W 10:14
PROVIDERS: Visit Provider Internal Medicine
DX: E11.22 Type 2 diabetes mellitus with diabetic chronic kidney disease (principal); Z93.1 Gastrostomy status
CPT/HCPCS: 36415; 80051; 82565; 84520; 85025

== ENCOUNTER 2020-12-04 05:34 | Outpatient (REF) | payer MEDICARE, SELFPAY ==
[2020-12-04 08:55] LABS: MANUAL DIFF FLAG NO
[2020-12-04 08:56] LABS: Basophils Absolute Auto 0.1 X10*3/uL (0.0-0.2); Basophils Percent Auto 0.7 % (0-2); Eosinophils Absolute Auto 0.4 X10*3/uL (0.0-0.4); Eosinophils Percent Auto 3.3 % (0-4); Hematocrit 36.4 % (42-52); Hemoglobin 11.8 g/dl (14.0-18.0); Imm Gran Abs Auto 0.19 X10*3/uL (0.00-0.03); Imm Gran Pct Auto 1.4 % (0.0-0.4); Lymphocytes Absolute Auto 1.6 X10*3/uL (1.2-4.9); Mean Corpuscular HGB Conc 32.4 g/dl (31.0-36.0); Mean Corpuscular Hemoglobin 29.1 pg (27.0-33.0); Mean Corpuscular Volume 89.9 fL (80-98); Mean Platelet Volume 10.1 fL (9.4-12.4); Monocytes Absolute Auto 1.1 X10*3/uL (0.1-1.2); Monocytes Percent Auto 8.6 % (2-11); Neutrophils Absolute Auto 9.7 X10*3/uL (2.0-8.3); Platelet Count 611 X10*3/uL (160-400); Red Blood Count 4.05 X10*6/uL (4.60-5.80); Red Cell Distribution Width 14.9 % (11.0-16.0); White Blood Count 13.2 X10*3/uL (4.8-10.8)
[2020-12-04 09:21] LABS: Anion Gap 13 (12-20); Blood Urea Nitrogen 46 mg/dL (9-16); Carbon Dioxide 29 mmol/L (22-29); Chloride 101 mmol/L (96-108); Estimated Glomerular Filt Rate 53; Potassium 5.3 mmol/l (3.3-5.1); Sodium 138 mmol/L (135-145)
== END 2020-12-04 05:35 | disposition home or self-care (01) ==
LOC: HO.HSH4W 05:34
PROVIDERS: Visit Provider Internal Medicine
DX: E11.22 Type 2 diabetes mellitus with diabetic chronic kidney disease (principal); N18.9 Chronic kidney disease, unspecified
CPT/HCPCS: 36415; 80051; 82565; 84520; 85025

== ENCOUNTER 2020-12-11 07:15 | Outpatient (REF) | payer MEDICARE, SELFPAY ==
[2020-12-11 08:40] LABS: Anion Gap 14 (12-20); Blood Urea Nitrogen 51 mg/dL (9-16); Carbon Dioxide 26 mmol/L (22-29); Chloride 100 mmol/L (96-108); Estimated Glomerular Filt Rate 49; Sodium 135 mmol/L (135-145)
== END 2020-12-11 07:16 | disposition home or self-care (01) ==
LOC: HO.HSH4W 07:15
PROVIDERS: Visit Provider Internal Medicine
DX: E11.22 Type 2 diabetes mellitus with diabetic chronic kidney disease (principal); C15.9 Malignant neoplasm of esophagus, unspecified
CPT/HCPCS: 36415; 80051; 82565; 84520

== ENCOUNTER 2020-12-13 20:42 | Observation (INO) | payer MEDICARE, SELFPAY ==
[2020-12-13 20:50] VITALS: BP 117/66; PULSE 98; RESP 16; TEMP 36.7; O2SAT 95; BMI 26.9
--- NOTE | 2020-12-13 20:50 | PC.NURSE ---
PT TO ROOM VIA AMBULANCE FROM [facility]. PT PULLED OUT G -TUBE. CALL FACULTY FOR G-TUBE DETAILS. MD IN ROOM FOR EVAL. PT ALERT, RESPIRATIONS EASY, N/L. SKIN W/D.
--- NOTE | 2020-12-13 20:58 | PC.NURSE ---
G TUBE FELL OUT AROUND 1929H. 24 [facility] PER [facility] RN. DIABETIC, NPO
--- NOTE | 2020-12-13 21:03 | ED.GENADULT ---
HPI - General Adult General Chief complaint: General Medical Stated complaint: g tube placement Time Seen by Provider: 12/13/20 20:52 Source: EMS Mode of arrival: EMS Limitations: no limitations History of Present Illness HPI narrative: [facility] Earlier today approximately 2 hours ago, patient accidentally pulled out his G-tube. Patient has no other complaints. Patient has history of esophageal cancer. Therefore, a G-tube was placed by Dr. Talamantes is on November 12 2020 MD complaint: Needs G-tube replaced Related Data Home Medications Medication Instructions Recorded Confirmed levothyroxine 25 mcg tablet 25 mcg PO DAILY 09/12/20 12/13/20 insulin lispro 10 unit SUBCUT TID PRN 10/05/20 12/13/20 bupropion HCl 150 mg tablet,12 hr 75 mg PO QAM 11/09/20 12/13/20 sustained-release gabapentin 100 mg capsule 100 mg PO DAILY 11/09/20 12/13/20 insulin glargine 100 unit/mL 8 unit SUBCUT DAILY PRN ml 11/09/20 11/12/20 subcutaneous solution ondansetron HCl 4 mg tablet 8 mg PO TID tab 11/09/20 12/13/20 pantoprazole 40 mg tablet,delayed 40 mg PO DAILY 11/09/20 11/12/20 release sertraline 25 mg tablet 25 mg PO DAILY 11/09/20 12/13/20 sertraline 50 mg tablet 50 mg PO DAILY 11/09/20 12/13/20 gabapentin 100 mg PO BID 11/12/20 12/13/20 omeprazole 20 mg PO DAILY 12/13/20 12/13/20 Previous Rx's Medication Instructions Recorded oxycodone-acetaminophen [Percocet] 1 - 2 tab PO Q4-6H PRN #30 tab 11/15/20 Allergies Allergy/AdvReac Type Severity Reaction Status Date / Time amoxicillin [AMOXICILLIN] Allergy Unknown SWELLING Verified 11/26/20 12:30 bee pollen [BEE STINGS] Allergy Unknown SWELLING Verified 11/26/20 12:30 clavulanic acid [Augmentin] Allergy Unknown Unknown Verified 11/26/20 12:30 shellfish derived Allergy Unknown HIVES Verified 11/26/20 12:30 [SHELLFISH DERIVED] turkey [TURKEY] Allergy Unknown SWELLING Verified 11/26/20 12:30 bees Allergy Unknown Swelling Uncoded 10/05/20 21:57 poultry Allergy Unknown Hives Uncoded 10/05/20 21:57 shellfish Allergy Unknown Hives Uncoded 10/05/20 21:57 Sulfa Allergy Unknown Hives Uncoded 10/05/20 21:57 [place] Allergy Unknown Hives Uncoded 10/05/20 21:57 Review of Systems Review of Systems: Constitutional : No Weight loss, No Fever, No Chills, No Night Sweats, No Fatigue, No Malaise ENT/Mouth : No Hearing loss, No Ear Pain, No Nasal Congestion, No Sinus Pain, No Hoarseness, No sore throat, No Rhinorrhea, No Swallowing Difficulty Eyes: No Eye Pain, No Swelling, No Redness, No Foreign Body, No Discharge, No Vision Changes Cardiovascular : No Chest Pain, No SOB, No Dyspnea on Exertion, No Orthopnea, No Edema, No Palpitations Respiratory : No Cough, No Sputum, No Wheezing, No Smoke Exposure, No Dyspnea Gastrointestinal : No Nausea, No Vomiting, No Diarrhea, No Constipation, No abdominal Pain, No Hematochezia, No Melena, accidentally pulled G-tube Genitourinary : no irregular bleeding, No Dysuria, No Urinary Frequency, No Hematuria, No Urinary Incontinence, No Urgency, No Flank Pain, No Urinary Flow Changes, No Hesitancy Musculoskeletal : No joint pain, No Myalgias, No Joint Swelling Skin : No Skin Lesions, No rash Neuro : No Weakness, No Numbness, No Paresthesias, No Loss of Consciousness, No Dizziness, No Headache Psych : No Anxiety/Panic, No Depression, No SI/HI/AH/VH, No Social Issues, Heme/Lymph: No Bruising, No Bleeding,No Lymphadenopathy Endocrine : No Polyuria, No Polydipsia, No Temperature Intolerance [facility] Past Medical History Medical History BPH (benign prostatic hyperplasia) Chronic kidney disease Depression Diabetes Dysphagia Esophageal cancer HTN (hypertension), benign Hypothyroid Lumbar radiculopathy Neuropathy NIDDY (non-insulin dependent diabetes mellitus in young) Obesity Post herpetic neuralgia Urinary catheter in place Surgical History Hx of cholecystectomy Status post gastrostomy tube (G tube) placement, follow-up exam Family History Family History Father History of heart attack Mother Hx of diabetes mellitus Hx of arthrodesis Social History Social History Household Members: None Housing: [facility] Alcohol intake: never Smoking Status: Never smoker Advance Directives: Yes Advance Directives on File: Yes Advance Directives Date on File: 09/19/20 service: Yes Current occupational status: disabled Physical Exam Vital Signs: Vital Signs: Last Vital Signs Temp 98.6 F 12/13/20 21:51 Pulse 93 12/13/20 21:51 Resp 16 12/13/20 21:51 BP 117/66 12/13/20 21:51 Pulse Ox 99 12/13/20 21:51 Body Mass Index 26.9 Appearance: Alert. Oriented X3. No acute distress. Eyes: Pupils equal, round and reactive to light. ENT: Pharynx normal. Neck: Normal inspection. Neck supple. No lymph nodes noted. No crepitus CVS: Normal heart rate and rhythm. Pulses normal. Normal S1 and S2 Respiratory: No respiratory distress. Breath sounds normal. No Wheezing. No rales Abdomen: Soft and nontender. No rigidity. No distention. good BS x4 Skin: Skin warm and dry. G-tube foramen seems closed Extremities: No lower extremity edema. No lower extremity edema. No Lacerations. No Rash Neuro: Oriented X 3. No motor deficit. No sensory deficit. Moving all extermities. No slurred speech. Course Course Course Narrative: I discussed the patient with Dr. Delarosa. He will attempt inserting the G-tube tomorrow, however it may be IR that may end up doing the procedure. Patient will be admitted by our hospitalist, Dr. Potts Medical Decision Making ECG Data Attestation: I personally reviewed and interpreted this ECG as follows: (For quality EKG, heart rate 109, sinus rhythm, QTC 417, no ST segment depressions or elevations) Discharge Plan Discharge Clinical Impression: Dislodged gastrostomy tube Patient Disposition: Admitted as Observation
--- NOTE | 2020-12-13 21:30 | PC.NURSE ---
IN ROOM TO REPLACE G-TUBE. WAS UNABLE TO INSERT G-TUBE AND NEEDS TO BE REPLACED TOMORROW IN OR. PT BEING ADMITTED AT THIS TIME.
--- NOTE | 2020-12-13 21:50 | PC.NURSE ---
PER [facility] HX CKD STAGE 3, DM TYPE 2, HTN, HYPOTHYROIDISM, CURRENTLY ON LIVER TRANSPLANT LIST. MOST RECENT SURGICAL PROCEDURE WAS G-TUBE PLACEMENT SOMETIME BETWEEN 11/12-11/15.
[2020-12-13 21:51] VITALS: BP 117/66; PULSE 93; RESP 16; TEMP 37; O2SAT 99
--- NOTE | 2020-12-13 22:09 | ECG_ITS ---
Test Reason : ? PRE OP Blood Pressure : / mmHG Vent. Rate : 109 BPM Atrial Rate : 109 BPM P-R Int : 174 ms QRS Dur : 062 ms QT Int : 310 ms P-R-T Axes : 081 035 059 degrees QTc Int : 417 ms Artifact in tracing Sinus tachycardia with Premature supraventricular complexes Abnormal EKG When compared with ECG of 12-NOV-2020 09:38, No significant change was found Referred By: Chika Roldan Electronically Signed By:CARLYN HERNANDEZ
--- NOTE | 2020-12-13 22:20 | PC.NURSE ---
HOSPITALIST IN ROOM FOR EVAL.
--- NOTE | 2020-12-13 23:30 | PC.NURSE ---
PT CLEANED UP WITH FRESH SHEETS TO BED. PT RESTING IN STETCHER, WAKES TO VERBAL STIMULI, RESPIRATIONS EASY, N/L. SKIN W/D. MED REC DONE. PT DENIES ANY COMPLAINTS. NEW ARREGUIN BAG APPLIED TO ARREGUIN D/T TREMENDOUS ODOR COMING FROM ARREGUIN CATH BAG. ARREGUIN DRAINING SLIGHTLY CLOUDY URINE. PT DENIES ANY PAIN. WILL CONTINUE TO MONITOR PT.
--- NOTE | 2020-12-13 23:31 | PM.IMHP ---
History of Present Illness Date of Service: 12/13/20 Chief Complaint: Dislodged G-tube This is an 80-year-old male with an extensive past medical history including esophageal cancer status post placement of G-tube who [facility] after accidently removing his G-tube. Pt is sleepy but wakes up to verbal command. Is not really interactive, but denies any headache, chest pain, n/v, no abdominal pain, no diarrhea or constipation and no urinary symptoms. ED team tried to replace the G-tube with no success, surgical team was consulted, recommended pt be admitted to medical team and they will evaluate pt in AM. On arrival to the ED hemodynamically stable with no significant abnormal vitals Labs are significant for chronically elevated WBC of 13.1, hemoglobin of 12.8 which is around his baseline, otherwise labs are unremarkable Review of Systems Review of Systems: Yes all other systems are reviewed and are negative [facility] Medical History BPH (benign prostatic hyperplasia) Chronic kidney disease Depression Diabetes Dysphagia Esophageal cancer HTN (hypertension), benign Hypothyroid Lumbar radiculopathy Neuropathy NIDDY (non-insulin dependent diabetes mellitus in young) Obesity Post herpetic neuralgia Urinary catheter in place Family History Father History of heart attack Mother Hx of diabetes mellitus Hx of arthrodesis Surgical History Hx of cholecystectomy Status post gastrostomy tube (G tube) placement, follow-up exam Social History Household Members: None Housing: [facility] Alcohol intake: never Smoking Status: Never smoker Advance Directives: Yes Advance Directives on File: Yes Advance Directives Date on File: 09/19/20 service: Yes Current occupational status: disabled Meds Allergies Allergy/AdvReac Type Severity Reaction Status Date / Time amoxicillin [AMOXICILLIN] Allergy Unknown SWELLING Verified 11/26/20 12:30 bee pollen [BEE STINGS] Allergy Unknown SWELLING Verified 11/26/20 12:30 clavulanic acid [Augmentin] Allergy Unknown Unknown Verified 11/26/20 12:30 shellfish derived Allergy Unknown HIVES Verified 11/26/20 12:30 [SHELLFISH DERIVED] turkey [TURKEY] Allergy Unknown SWELLING Verified 11/26/20 12:30 bees Allergy Unknown Swelling Uncoded 10/05/20 21:57 poultry Allergy Unknown Hives Uncoded 10/05/20 21:57 shellfish Allergy Unknown Hives Uncoded 10/05/20 21:57 Sulfa Allergy Unknown Hives Uncoded 10/05/20 21:57 [place] Allergy Unknown Hives Uncoded 10/05/20 21:57 Home Medications Medication Instructions Recorded Confirmed Type levothyroxine 25 mcg tablet 25 mcg PO DAILY 09/12/20 12/13/20 History insulin lispro 10 unit SUBCUT TID PRN 10/05/20 12/13/20 History bupropion HCl 150 mg tablet,12 hr 75 mg PO QAM 11/09/20 12/13/20 History sustained-release gabapentin 100 mg capsule 100 mg PO DAILY 11/09/20 12/13/20 History insulin glargine 100 unit/mL 8 unit SUBCUT DAILY PRN ml 11/09/20 11/12/20 History subcutaneous solution ondansetron HCl 4 mg tablet 8 mg PO TID tab 11/09/20 12/13/20 History sertraline 25 mg tablet 25 mg PO DAILY 11/09/20 12/13/20 History sertraline 50 mg tablet 50 mg PO DAILY 11/09/20 12/13/20 History gabapentin 100 mg PO BID 11/12/20 12/13/20 History omeprazole 20 mg PO DAILY 12/13/20 12/13/20 History Physical Exam Vital Signs and Narrative: Vital Signs: Last Vital Signs Temp 98.6 F 12/13/20 21:51 Pulse 93 12/13/20 21:51 Resp 16 12/13/20 21:51 BP 117/66 12/13/20 21:51 Pulse Ox 99 12/13/20 21:51 Body Mass Index 26.9 Const: Other: Appears dehydrated General: cooperative and no acute distress Eyes: General: appearance normal, both eyes and all related structures Resp: Effort & Inspection: normal respiratory effort and able to speak in complete sentences Cardio: Rate: regular rate Rhythm: regular rhythm GI: Other: Opening in the center of his tonic, covered with dressing, no abnormal findings, no abdominal tenderness guarding or rebound on palpation Palpation (GI): Soft to palpation Auscultation: normal bowel sounds Neuro: Cognition (Neuro): normal cognition Extrem: General: Yes normal to inspection and Yes no pedal edema Results Labs CBC and Chem 7: 12/13/20 23:37 12/13/20 23:37 Assessment and Plan (1) Dislodged gastrostomy tube: Status: Acute (2) Dehydration: Status: Acute (3) Leukocytosis: Status: Acute This is an 80-year-old male with an extensive past medical history who presents to the hospital [facility] after having his G-tube dislodged. # dislodged G-tube - G-tube placed for history of esophageal cancer and dysphagia - general surgery has been consulted - will keep NPO # dehydration - clinically appears dehydrated, some evidence of dehydration on labs as he appears to be hemoconcentrated - will start him on gentle IV fluids # leukocytosis - chronic - no acute evidence of infection DVT prophylaxis: Heparin subq
[2020-12-13 23:49] LABS: Basophils Absolute Auto 0.1 X10*3/uL (0.0-0.2); Basophils Percent Auto 0.5 % (0-2); Eosinophils Absolute Auto 0.3 X10*3/uL (0.0-0.4); Eosinophils Percent Auto 2.2 % (0-4); Hematocrit 39.7 % (42-52); Hemoglobin 12.8 g/dl (14.0-18.0); Imm Gran Abs Auto 0.17 X10*3/uL (0.00-0.03); Imm Gran Pct Auto 1.3 % (0.0-0.4); Lymphocytes Absolute Auto 1.6 X10*3/uL (1.2-4.9); Lymphocytes Percent Auto 12.1 % (20-40); MANUAL DIFF FLAG NO; Mean Corpuscular HGB Conc 32.2 g/dl (31.0-36.0); Mean Corpuscular Hemoglobin 28.8 pg (27.0-33.0); Mean Corpuscular Volume 89.2 fL (80-98); Monocytes Percent Auto 7.6 % (2-11); Neutrophils Percent Auto 76.3 % (45-73); Platelet Count 486 X10*3/uL (160-400); Red Blood Count 4.45 X10*6/uL (4.60-5.80); Red Cell Distribution Width 15.2 % (11.0-16.0); White Blood Count 13.1 X10*3/uL (4.8-10.8)
[2020-12-14] VITALS: BP 120/75; PULSE 105; RESP 18; TEMP 36.9; O2SAT 100
[2020-12-14 00:27] LABS: Anion Gap 14 (12-20); Blood Urea Nitrogen 44 mg/dL (9-16); Carbon Dioxide 27 mmol/L (22-29); Chloride 101 mmol/L (96-108); Creatinine Clr Calc Pharmacy 42.9; Estimated Glomerular Filt Rate 57; Glucose Random 70 mg/dL (60-115); Potassium 5.1 mmol/l (3.3-5.1); Sodium 137 mmol/L (135-145)
[2020-12-14 00:29] LABS: Alanine Aminotransferase 41 U/L (0-40); Albumin Level 3.7 g/dL (3.5-5.0); Alkaline Phosphatase 114 U/L (39-117); Anion Gap 14 (12-20); Aspartate Amino Transferase 26 U/L (5-37); Bilirubin Direct 0.3 mg/dL (0.0-0.5); Bilirubin Total 0.4 mg/dL (0.0-1.0); Blood Urea Nitrogen 44 mg/dL (9-16); Carbon Dioxide 27 mmol/L (22-29); Chloride 101 mmol/L (96-108); Creatinine Clr Calc Pharmacy 43.6; Estimated Glomerular Filt Rate 58; Glucose Random 70 mg/dL (60-115); Potassium 5.1 mmol/l (3.3-5.1); Sodium 137 mmol/L (135-145); Total Protein 7.7 g/dL (6.5-8.0)
--- NOTE | 2020-12-14 01:45 | PC.NURSE ---
PT RESTING IN STRETCJER. WAKES TO VOICE. RESPIRATIONS EASY, N/L. WILL CONTINUE TO MONITOR PT.
--- NOTE | 2020-12-14 03:16 | PC.NURSE ---
PT RESTING IN STRETCHER, RESPIRATIONS EASY, N/L. WILL CONTINUE TO MONITOR PT.
[2020-12-14 05:56] LABS: COVID-19 Test Negative (Negative); IDNOW Serial# 9DD0AD1C
[2020-12-14] MEDS: Lactated Ringers 1,000 ML 100 ML IVCONT (06:15)
[2020-12-14 07:31] VITALS: BP 107/63; PULSE 100; RESP 18; O2SAT 99
--- NOTE | 2020-12-14 09:36 | PM.CNGS ---
History of Present Illness Consult details Consult date: 12/14/20 <KAROLINA Larkin Last Filed: 12/14/20 13:44> Reason for consult: other (G tube placement) <KAROLINA Larkin Last Filed: 12/14/20 13:44> Requesting physician: Chika Roldan <KAROLINA Larkin Last Filed: 12/14/20 13:44> Narrative: Mr. Sanches is an 80-year-old male who presented to the ED after his G tube was accidently dislodged yesterday morning at the [facility]. The patient was diagnosed to have esophageal carcinoma and had been unable to swallow in view of this neoplastic process. He therefore underwent open gastrostomy tube placement via an upper midline incision on 11/12/2020. This was uncomplicated and he tolerated procedure well and was discharged on postop day 3. He was seen postoperatively on 11/26/20 as the G tube had become dislodged at the [facility]. This was replaced by Dr. Talamantes in the office with a 14F rubber catheter and confirmed via AXR and gastrograffin administration given the recent placement. Since then, the G tube had been functioning well and there was no difficulty with tube feedings until it became dislodged yesterday morning. He therefore was sent to the ED where ED staff attempted to replace the G tube but were unsuccessful. Surgery was therefore consulted. <KAROLINA Larkin Last Filed: 12/14/20 13:44> Review of Systems Eyes: Eyes: Denies change in vision <KAROLINA Larkin Last Filed: 12/14/20 13:44> ENT: Reports dysphagia and Denies dizziness <KAROLINA Larkin Last Filed: 12/14/20 13:44> Cardiovascular: Cardiovascular: Denies chest pain and Denies dyspnea <KAROLINA Larkin Last Filed: 12/14/20 13:44> Respiratory: Respiratory: Denies dyspnea <KAROLINA Larkin Last Filed: 12/14/20 13:44> Gastrointestinal: Gastrointestinal: Denies abdominal pain, Reports dysphagia, Denies diarrhea, Denies nausea and Denies vomiting <Xochilt Child PA-C - Last Filed: 12/14/20 13:44> Genitourinary: Genitourinary: Denies hematuria <KAROLINA Larkin Last Filed: 12/14/20 13:44> Integumentary/Breasts: Skin/Breast: Denies rash <Xochilt Child PA-C - Last Filed: 12/14/20 13:44> Neurologic: Denies dizziness <Xochilt Child PA-C Last Filed: 12/14/20 13:44> [facility] Past Medical History Medical History: Medical History BPH (benign prostatic hyperplasia) Chronic kidney disease Depression Diabetes Dysphagia Esophageal cancer HTN (hypertension), benign Hypothyroid Lumbar radiculopathy Neuropathy NIDDY (non-insulin dependent diabetes mellitus in young) Obesity Post herpetic neuralgia Urinary catheter in place <KAROLINA Larkin Last Filed: 12/14/20 13:44> Family History Family History: Family History Father History of heart attack Mother Hx of diabetes mellitus Hx of arthrodesis <KAROLINA Larkin Last Filed: 12/14/20 13:44> Surgical History Surgical History: Surgical History Hx of cholecystectomy Status post gastrostomy tube (G tube) placement, follow-up exam <Xochilt Child PA-C Last Filed: 12/14/20 13:44> Social History Social History: Social History Household Members: None Housing: Half-Way Alcohol intake: never Smoking Status: Never smoker Advance Directives: Yes Advance Directives on File: Yes Advance Directives Date on File: 09/19/20 service: Yes Current occupational status: disabled <KAROLINA Larkin Last Filed: 12/14/20 13:44> Meds Allergies/Adverse reactions: Allergies Allergy/AdvReac Type Severity Reaction Status Date / Time amoxicillin [AMOXICILLIN] Allergy Unknown SWELLING Verified 11/26/20 12:30 bee pollen [BEE STINGS] Allergy Unknown SWELLING Verified 11/26/20 12:30 clavulanic acid [Augmentin] Allergy Unknown Unknown Verified 11/26/20 12:30 shellfish derived Allergy Unknown HIVES Verified 11/26/20 12:30 [SHELLFISH DERIVED] turkey [TURKEY] Allergy Unknown SWELLING Verified 11/26/20 12:30 bees Allergy Unknown Swelling Uncoded 10/05/20 21:57 poultry Allergy Unknown Hives Uncoded 10/05/20 21:57 shellfish Allergy Unknown Hives Uncoded 10/05/20 21:57 Sulfa Allergy Unknown Hives Uncoded 10/05/20 21:57 [place] Allergy Unknown Hives Uncoded 10/05/20 21:57 <Xochilt Child PA-C - Last Filed: 12/14/20 13:44> Home medications: Home Medications Medication Instructions Recorded Confirmed Type levothyroxine 25 mcg tablet 25 mcg PO DAILY 09/12/20 12/13/20 History insulin lispro 10 unit SUBCUT TID PRN 10/05/20 12/13/20 History gabapentin 100 mg capsule 100 mg PO DAILY 11/09/20 12/13/20 History insulin glargine 100 unit/mL 8 unit SUBCUT DAILY PRN ml 11/09/20 11/12/20 History subcutaneous solution ondansetron HCl 4 mg tablet 8 mg PO TID tab 11/09/20 12/13/20 History sertraline 25 mg tablet 25 mg PO DAILY 11/09/20 12/13/20 History sertraline 50 mg tablet 50 mg PO DAILY 11/09/20 12/13/20 History gabapentin 100 mg PO BID 11/12/20 12/13/20 History omeprazole 20 mg PO DAILY 12/13/20 12/13/20 History <Xochilt Child PA-C - Last Filed: 12/14/20 13:44> Physical Exam Vital Signs: Vital Signs: Last Vital Signs Temp 98.5 F 12/14/20 00:00 Pulse 100 12/14/20 07:31 Resp 18 12/14/20 07:31 BP 107/63 12/14/20 07:31 Pulse Ox 99 12/14/20 07:31 Body Mass Index 26.9 <Xochilt De Leonau, PA-Norris Andrade Last Filed: 12/14/20 13:44> Const: General: comfortable, no acute distress and alert <ANA LarkinNorris - Last Filed: 12/14/20 13:44> Orientation/consciousness: patient oriented x3 <ANA LarkinNorris Andrade Last Filed: 12/14/20 13:44> HENMT: Mouth: mucous membranes dry (dry) <Xochilt REJI ChildRosaura - Last Filed: 12/14/20 13:44> Eyes: Sclerae: sclerae normal <Xochilt MeltonREJI landRosaura - Last Filed: 12/14/20 13:44> Resp: Effort & Inspection: normal respiratory effort <Xochilt ANA ChildNorris Andrade Last Filed: 12/14/20 13:44> Cardio: Rate: regular rate <Xochilt MeltonREJI landRosaura Andrade Last Filed: 12/14/20 13:44> GI: Other: G tube opening present in LUQ, lateral to midline incision, no drainage noted, no erythema <Xochilt MeltonREJI landRosaura Andrade Last Filed: 12/14/20 13:44> Inspection: No distended and Yes scar (midline, well healed) <Xochilt ANA ChildNorris Last Filed: 12/14/20 13:44> Palpation (GI): Soft to palpation, nontender, no guarding and not rigid <REJI LarkinRosaura Andrade Last Filed: 12/14/20 13:44> Skin: General skin exam: no rashes or lesions noted <ANA LarkinNorris Andrade Last Filed: 12/14/20 13:44> Neuro: General: patient oriented x3 <Xochilt Child PA-C [place] Last Filed: 12/14/20 13:44> Extrem: General: Yes no clubbing, cyanosis or edema <Xochilt Child PA-C Raymond Last Filed: 12/14/20 13:44> Results Labs Result diagrams: : 12/13/20 23:37 12/13/20 23:37 <Xochilt Child PA-C - Last Filed: 12/14/20 13:44> Labs: Abnormal lab results 12/13/20 12/13/20 12/13/20 Range/Units 23:37 23:37 23:37 WBC 13.1 H (4.8-10.8) X10*3/uL RBC 4.45 L (4.60-5.80) X10*6/uL Hgb 12.8 L (14.0-18.0) g/dl Hct 39.7 L (42-52) % Plt Count 486 H (160-400) X10*3/uL MPV 9.0 L (9.4-12.4) fL Immature Gran % (Auto) 1.3 H (0.0-0.4) % Neut % (Auto) 76.3 H (45-73) % Lymph % (Auto) 12.1 L (20-40) % Abs Immat Gran (auto) 0.17 H (0.00-0.03) X10*3/uL Absolute Neuts (auto) 10.0 H (2.0-8.3) X10*3/uL BUN 44 H 44 H (9-16) mg/dL ALT 41 H (0-40) U/L Short CBC 12/13/20 12/13/20 Range/Units 23:37 23:37 WBC Cancelled 13.1 H Hgb Cancelled 12.8 L Hct Cancelled 39.7 L Plt Count Cancelled 486 H BMP 12/13/20 12/13/20 23:37 23:37 Sodium 137 137 Potassium 5.1 5.1 Chloride 101 101 Carbon Dioxide 27 27 BUN 44 H 44 H Creatinine 1.20 1.22 Calcium 10.0 10.0 Liver Function 12/13/20 Range/Units 23:37 Total Bilirubin 0.4 (0.0-1.0) mg/dL Direct Bilirubin 0.3 (0.0-0.5) mg/dL AST 26 (5-37) U/L ALT 41 H (0-40) U/L Alkaline Phosphatase 114 D (39-117) U/L Albumin 3.7 (3.5-5.0) g/dL All other labs normal. <Xochilt Child PA-C - Last Filed: 12/14/20 13:44> Assessment and Plan (1) Dehydration: Status: Acute <Xochilt Child PA-C - Last Filed: 12/14/20 13:44> (2) Dislodged gastrostomy tube: Status: Acute <Xochilt Child PA-C - Last Filed: 12/14/20 13:44> Mr. Sanches is now one month s/p open G tube placement for esophageal CA and difficulty swallowing. His G tube was found dislodged yesterday by [facility] staff; prior to this, the G tube was functioning well without any problems with feeds. Dislodgment happened previously on 11/26/20 and a 14F rubber catheter was able to be reinsterted. The abdomen was examined, there was an open G tube tract in the LUQ. The area was prepped with betadine. A 14F rubber catheter was inserted with some resistance at the subcutaneous level but then was easily advanced further until about 1/2 of the catheter was inserted. The catheter was flushed with sterile saline without difficulty. The G tube site was reprepped with betadine and a single interrupted 3-0 nylon suture was placed at the G tube site to anchor the catheter to the skin. The catheter was again flushed with sterile saline easily. The site was dressed with fluffs and tape. The patient tolerated this well. He is stable for discharge back to the [facility] from a surgical standpoint and tube feedings can continue. Follow up with Dr. Talamantes as needed in the office. <Xochilt Child PA-C - Last Filed: 12/14/20 13:44> 80-year-old male patient with a known esophageal Ca status post PEG tube placement, recently dislodged, presenting to the ED for replacement. The usual LAVERNE tube could not be reinserted during the night therefore a red rubber catheter was placed. Patient tolerated the insertion well. [facility] ok with the medical team. Agree with the above assessment and plan. <hCau Delarosa MD - Last Filed: 12/14/20 14:17> (3) Status post gastrostomy tube (G tube) placement, follow-up exam: Status: Acute <Xochilt Child PA-C - Last Filed: 12/14/20 13:44>
[2020-12-14] MEDS: Lactated Ringers 1,000 ML 80 ML IVCONT (10:05)
[2020-12-14] MEDS: 0.9 % Sodium Chloride Flush 3 ML SYRINGE IVFLUSH ×2 (10:08→16:54)
--- NOTE | 2020-12-14 10:59 | MHC.CM.PN ---
OBS NOTICE 12/14/20, EMR REVIEWED, CM MET WITH PT WHO IS ALERT AND ORIENTED, PT HAD JUST RETURNED FROM HAVING GTUBE PLACED AND REPORTS FEELING MUCH BETTER PT REPORTS HE WILL RETURN TO [facility] AND HAS ASSISTANCE WITH [facility]. PT REPORTS GTUBE IS GOING WELL HOWEVER HE MISSES EATING AND FEELS THIRSTY A LOT OF THE TIME. PT IN MUCH BETTER SPIRITS THAN PREVIOUS HOSPITAL STAY WHEN GTUBE WAS INITIALLY PLACED. CM WILL NOTIFY [facility] REGARDING D/C LATER TODAY. [facility]: MANJULA ROBLES: [phone] FAX: [phone] NURSING TOUR NARRATOR: [phone] HCP: BALJINDER GILMORE [phone] ALTERNATE: MARGE GILMORE [phone]
--- NOTE | 2020-12-14 11:59 | MHC.CM.PN ---
CM ATTEMPTED TO CALL CHEMISTRY FACULTY MEMBER AT [facility] AT 11:40 TO ARRANGE TRANSFER TIME, MESSAGE LEFT AND PER MONOMER RECOVERY OPERATOR CM WILL CALL IN 1 HR FROM FIRST ATTEMPT.
[2020-12-14 12:08] LABS: Glucose, Whole Blood 102 mg/dL (60-115)
--- NOTE | 2020-12-14 12:54 | MHC.CM.PN ---
CM SPOKE WITH MANJULA ROBLES AT [facility] TO ARRANGE RETURN TIME FOR TODAY AT 6PM, CM TO PAPER FAX DISCHARGE SUMMARY WHEN AVAILABLE.
[2020-12-14] MEDS: Acetaminophen Supp 650 MG SUPP.RECT PR (13:05)
[2020-12-14] MEDS: Heparin Sodium,Porcine 5,000 UNIT/ML VIAL 5000 UNIT SUBCUT (13:06)
--- NOTE | 2020-12-14 13:47 | P.DS_ITS ---
DS: Providers Provider Date of Service: 12/18/20 Date of admission: 12/13/20 22:28 Primary care physician: Unknown Physician Consults: 12/13/20 22:28 Consult to General Surgery Routine Consulting Provider: Chau Delarosa Reason for consultation: G-tube placement Has provider been notified: Yes DS: Diagnosis Discharge Diagnosis (1) Dehydration: Status: Acute (2) Dislodged gastrostomy tube: Status: Acute (3) Status post gastrostomy tube (G tube) placement, follow-up exam: Status: Acute DS: Medications Discharge Medications Home Medications: Home Medications Medication Instructions Recorded Confirmed levothyroxine 25 mcg tablet 25 mcg PO DAILY 09/12/20 12/13/20 insulin lispro 10 unit SUBCUT TID PRN 10/05/20 12/13/20 gabapentin 100 mg capsule 100 mg PO DAILY 11/09/20 12/13/20 insulin glargine 100 unit/mL 8 unit SUBCUT DAILY PRN ml 11/09/20 11/12/20 subcutaneous solution ondansetron HCl 4 mg tablet 8 mg PO TID tab 11/09/20 12/13/20 sertraline 25 mg tablet 25 mg PO DAILY 11/09/20 12/13/20 sertraline 50 mg tablet 50 mg PO DAILY 11/09/20 12/13/20 gabapentin 100 mg PO BID 11/12/20 12/13/20 omeprazole 20 mg PO DAILY 12/13/20 12/13/20 Previous Rx's Medication Instructions Recorded bupropion HCl 75 mg PO QAM #0 tab 12/14/20 DS: Summary Hospital Course Hospital Course: 80-year-old male admitted after PEG tube came out accidentally, general surgery was consulted PEG tube was replaced, patient was started on tube feeding, patient was tolerating tube feeding Patient also received IV fluid for mild dehydration, dehydration resolved, Water flushes increased to 250 q.6 hours for feeding tube to prevent dehydration Patient was stable tolerating tube feeding and discharged back to facility Time Spent with Patient Time attestation: Total time spent providing and/or coordinating discharge services: Discharge coordination time: Greater than 30 minutes Physical Exam Vital Signs: Vital Signs: Last Vital Signs Temp 98.5 F 12/14/20 00:00 Pulse 100 12/14/20 07:31 Resp 18 12/14/20 07:31 BP 107/63 12/14/20 07:31 Pulse Ox 99 12/14/20 07:31 Body Mass Index 26.9 DS: Data Data Completed and Pending Completed studies during hospitalization [Text1]: Procedures Insertion of Feeding Device into Stomach, Open Approach (11/12/20) Labs on day of discharge: Laboratory Tests 12/13/20 12/13/20 12/13/20 23:37 23:37 23:37 WBC Cancelled 13.1 H RBC Cancelled 4.45 L Hgb Cancelled 12.8 L Hct Cancelled 39.7 L MCV Cancelled 89.2 MCH Cancelled 28.8 MCHC Cancelled 32.2 RDW Cancelled 15.2 Plt Count Cancelled 486 H MPV Cancelled 9.0 L Immature Gran % (Auto) Cancelled 1.3 H Neut % (Auto) Cancelled 76.3 H Lymph % (Auto) Cancelled 12.1 L [place] % (Auto) Cancelled 7.6 Eos % (Auto) Cancelled 2.2 Baso % (Auto) Cancelled 0.5 Lymph # (Auto) Cancelled 1.6 [place] # (Auto) Cancelled 1.0 Eos # (Auto) Cancelled 0.3 Baso # (Auto) Cancelled 0.1 Abs Immat Gran (auto) Cancelled 0.17 H Absolute Neuts (auto) Cancelled 10.0 H Absolute Nucleated RBC Cancelled 0.000 Nucleated RBC % (auto) Cancelled 0.0 Sodium 137 Potassium 5.1 Chloride 101 Carbon Dioxide 27 Anion Gap 14 BUN 44 H Creatinine 1.20 Estim Creat Clear Calc 43.6 Estimated GFR 58 POC Glucose Random Glucose 70 D Calcium 10.0 Total Bilirubin 0.4 Direct Bilirubin 0.3 AST 26 ALT 41 H Alkaline Phosphatase 114 D Total Protein 7.7 Albumin 3.7 COVID-19 (АЛЕКСАНДР) COVID-19 Clin Com 12/13/20 12/14/20 12/14/20 23:37 05:33 12:05 WBC RBC Hgb Hct MCV MCH MCHC RDW Plt Count MPV Immature Gran % (Auto) Neut % (Auto) Lymph % (Auto) [place] % (Auto) Eos % (Auto) Baso % (Auto) Lymph # (Auto) [place] # (Auto) Eos # (Auto) Baso # (Auto) Abs Immat Gran (auto) Absolute Neuts (auto) Absolute Nucleated RBC Nucleated RBC % (auto) Sodium 137 Potassium 5.1 Chloride 101 Carbon Dioxide 27 Anion Gap 14 BUN 44 H Creatinine 1.22 Estim Creat Clear Calc 42.9 Estimated GFR 57 POC Glucose 102 Random Glucose 70 Calcium 10.0 Total Bilirubin Direct Bilirubin AST ALT Alkaline Phosphatase Total Protein Albumin COVID-19 (АЛЕКСАНДР) Negative COVID-19 Clin Com See Note Discharge Plan Discharge Anticipated Discharge Date/Time: 12/14/20 12:45 Patient Disposition: er [facility] Referrals: [facility] [Other] (S transportation) [facility] [Outside] (Return to [facility]) Physician,Unknown [Primary Care Provider] - Discharge Medications: Continued insulin lispro 100 unit/mL Solution 10 unit SUBCUT TID PRN (Reason: Hyperglycemia) RF: 0 omeprazole 40 mg Capsule,Delayed Release(Dr/Ec) 20 mg PO DAILY RF: 0 bupropion HCl 150 mg tablet sustained-release 12 hr 75 mg PO QAM Qty: 0 RF: 0 gabapentin 100 mg Capsule 100 mg PO BID RF: 0 levothyroxine 25 mcg tablet 25 mcg PO DAILY RF: 0 Lantus U-100 Insulin 100 unit/mL solution 8 unit subcut DAILY PRN (Reason: Hyperglycemia) RF: 0 ondansetron HCl [Zofran] 4 mg tablet 8 mg PO TID RF: 0 gabapentin 100 mg capsule 100 mg PO DAILY RF: 0 sertraline 25 mg tablet 25 mg PO DAILY RF: 0 sertraline 50 mg tablet 50 mg PO DAILY RF: 0 Discharge Orders: Discharge Order (Routine); Ordered 12/14/20 Ordered By: Sen Sanches Diet: other Activity on Discharge: As tolerated Stand Alone Forms: Patient Portal Discharge page Discharge Date/Time: 12/14/20 18:06 Care Plan Goals: see above Health Concerns: tube feeding Plan of Treatment: see above
--- NOTE | 2020-12-14 14:07 | MHC.CM.PN ---
PT DISCHARGING BACK TO [facility] WITH [facility] TRANPORT VIA [facility].
[2020-12-14 15:44] VITALS: BP 116/69; PULSE 90; RESP 16; TEMP 35.9; O2SAT 94
[2020-12-14 16:23] LABS: Glucose, Whole Blood 228 mg/dL (60-115)
[2020-12-14] MEDS: Insulin Lispro 100 UNIT/ML 3 ML VIAL SUBCUT (16:52)
== END 2020-12-14 18:06 ==
LOC: HO.ED 22:09 → HO.EDOVER 23:54 → HO.S3 12-14 06:40
PROVIDERS: Admitting Provider Internal Medicine; Emergency Provider Emergency Medicine; Visit Provider Internal Medicine
DX: T85.528A Displacement of other gastrointestinal prosthetic devices, implants and grafts, initial encounter (principal); E86.0 Dehydration; D72.829 Elevated white blood cell count, unspecified; C15.9 Malignant neoplasm of esophagus, unspecified; R13.10 Dysphagia, unspecified; I47.1 Supraventricular tachycardia; R94.31 Abnormal electrocardiogram [ECG] [EKG]; I12.9 Hypertensive chronic kidney disease with stage 1 through stage 4 chronic kidney disease, or unspecified chronic kidney disease; E11.22 Type 2 diabetes mellitus with diabetic chronic kidney disease; N18.9 Chronic kidney disease, unspecified; Z09 Encounter for follow-up examination after completed treatment for conditions other than malignant neoplasm; Z90.49 Acquired absence of other specified parts of digestive tract; Z91.030 Bee allergy status; Z88.0 Allergy status to penicillin; Z91.013 Allergy to seafood; Z88.2 Allergy status to sulfonamides; Z20.822 Contact with and (suspected) exposure to COVID-19; Z91.018 Allergy to other foods; Z79.4 Long term (current) use of insulin; Z79.899 Other long term (current) drug therapy
CPT/HCPCS: 36415; 80048; 80076; 82947; 85025; 87635; 93005; 96361; 96374; 99218; 99283; 99285

== ENCOUNTER 2020-12-29 22:26 | Emergency (ER) | payer OTHER, SELFPAY ==
--- NOTE | ~2020-12-29 | XR_ITS ---
EXAMINATION: ABDOMEN 1 VIEW CLINICAL INFORMATION: G-tube placement. COMPARISON: 11/26/2020. TECHNIQUE: A supine view of the abdomen is provided. The exam was performed following infusion of contrast material through the G-tube. FINDINGS: A G-tube is in place. There is no contrast extravasation. Contrast is present within the stomach and proximal small bowel. The are no dilated loops of small bowel. There are no air-fluid levels. There is a 4 mm density overlying the lower pole of the left kidney. The visualized lung bases are clear. The osseous structures are unremarkable. XR/XR abdomen 1V IMPRESSION: G-tube in place. No contrast extravasation. Unremarkable bowel gas pattern. 4 mm density overlying the lower pole of the left kidney.
[2020-12-29 22:34] VITALS: BP 120/65; PULSE 111; RESP 16; TEMP 37.2; O2SAT 96; BMI 21.7
--- NOTE | 2020-12-29 22:49 | ED.GENADULT ---
HPI - General Adult General Chief complaint: General Medical Stated complaint: problem with g/t Time Seen by Provider: 12/29/20 22:49 Source: patient and EMS Mode of arrival: EMS Limitations: no limitations History of Present Illness HPI narrative: 80 years old male from [facility] came in for assessment of nonfunctioning G-tube. Patient declined abdominal pain, or vomiting. Related Data Home Medications Medication Instructions Recorded Confirmed levothyroxine 25 mcg tablet 25 mcg PO DAILY 09/12/20 12/13/20 insulin lispro 10 unit SUBCUT TID PRN 10/05/20 12/13/20 gabapentin 100 mg capsule 100 mg PO DAILY 11/09/20 12/13/20 insulin glargine 100 unit/mL 8 unit SUBCUT DAILY PRN ml 11/09/20 11/12/20 subcutaneous solution ondansetron HCl 4 mg tablet 8 mg PO TID tab 11/09/20 12/13/20 sertraline 25 mg tablet 25 mg PO DAILY 11/09/20 12/13/20 sertraline 50 mg tablet 50 mg PO DAILY 11/09/20 12/13/20 gabapentin 100 mg PO BID 11/12/20 12/13/20 omeprazole 20 mg PO DAILY 12/13/20 12/13/20 Previous Rx's Medication Instructions Recorded bupropion HCl 75 mg PO QAM #0 tab 12/14/20 Allergies Allergy/AdvReac Type Severity Reaction Status Date / Time amoxicillin [AMOXICILLIN] Allergy Unknown SWELLING Verified 11/26/20 12:30 bee pollen [BEE STINGS] Allergy Unknown SWELLING Verified 11/26/20 12:30 clavulanic acid [Augmentin] Allergy Unknown Unknown Verified 11/26/20 12:30 shellfish derived Allergy Unknown HIVES Verified 11/26/20 12:30 [SHELLFISH DERIVED] turkey [TURKEY] Allergy Unknown SWELLING Verified 11/26/20 12:30 bees Allergy Unknown Swelling Uncoded 10/05/20 21:57 poultry Allergy Unknown Hives Uncoded 10/05/20 21:57 shellfish Allergy Unknown Hives Uncoded 10/05/20 21:57 Sulfa Allergy Unknown Hives Uncoded 10/05/20 21:57 [place] Allergy Unknown Hives Uncoded 10/05/20 21:57 Review of Systems Review of Systems: All other systems are reviewed and are negative Constitutional: Reports as per HPI and Reports no additional constitutional complaints Eyes: Reports as per HPI and Reports no additional eye complaints Reports system reviewed and no additional complaints, except as documented Cardiovascular: Reports as per HPI and Reports no additional cardiovascular complaints Respiratory: Reports as per HPI and Reports no additional respiratory complaints Gastrointestinal: Reports as per HPI and Reports no additional gastrointestinal complaints Genitourinary: Reports no additional female genitourinary complaints Musculoskeletal: Reports no additional musculoskeletal complaints Skin/Breast: Reports system reviewed and no additional complaints, except as docu Psychiatric: Reports no additional psychiatric complaints Endocrine: Reports no additional endocrine complaints Hematologic/Lymphatic: Reports no additional hematologic/lymphatic complaints Allergic/Immunologic: Reports no additional allergic/immunologic complaints Reports system reviewed and no additional complaints, except as documented and Reports Abnormal speech present [facility] Past Medical History Medical History BPH (benign prostatic hyperplasia) Chronic kidney disease Depression Diabetes Dysphagia Esophageal cancer HTN (hypertension), benign Hypothyroid Lumbar radiculopathy Neuropathy NIDDY (non-insulin dependent diabetes mellitus in young) Obesity Post herpetic neuralgia Urinary catheter in place Surgical History Hx of cholecystectomy Status post gastrostomy tube (G tube) placement, follow-up exam Family History Family History Father History of heart attack Mother Hx of diabetes mellitus Hx of arthrodesis Social History Social History Household Members: None Housing: [facility] Alcohol intake: never Smoking Status: Never smoker Advance Directives: No Advance Directives Date on File: 09/19/20 service: Yes Current occupational status: disabled Physical Exam Vital Signs: Vital Signs: Last Vital Signs Temp 98.9 F 12/29/20 22:34 Pulse 111 H 12/29/20 22:34 Resp 16 12/29/20 22:34 BP 120/65 12/29/20 22:34 Pulse Ox 96 12/29/20 22:34 Body Mass Index 21.7 Vital signs have been reviewed as normal and appeared to be correct. Blood pressure normal. Heart rate: Tachycardia. Respiration rate normal. Temperature normal. Oxygen saturation normal. Appearance: Alert. Oriented X3. No acute distress. Head: Normal external exam. Normocephalic. Atraumatic. No Combs signs noted. No raccoon eyes noted Eyes: PERRLA. EOMI. Conjunctiva and sclera normal. Eyelids normal. ENT: EAC normal. TM's Normal. Pharynx normal. Uvula midline. Moist mucous membranes. No trismus noted. No drooling noted. No muffled voice noted. Neck: Normal inspection. Neck supple. FROM. No adenopathy. Thyroid Normal. No meningeal signs. No neck mass noted. CVS: Normal heart rate and rhythm. Heart sound normal. No murmurs noted. Pulses normal throughout. Respiratory: No respiratory distress. Painless inspiration. Breath sounds normal. No wheezes/rales/rhonchi noted. Chest nontender. No accessory muscle usage noted or decreased air movement noted. Abdomen: Soft and nontender. Old G-tube (12 Swedish [address]ila is in place but not functioning) Bowel sounds normal in all 4 quadrants. No distention noted. No organomegaly noted. No visible injury noted. Back: No CVA tenderness. Full range of motion noted. Skin: Skin warm and dry. Normal skin color. Normal skin turgor. No rashes/lesions/lacerations noted. Extremities: No lower extremity edema. Extremities exhibit normal range of motion. Extremities nontender. Neuro: Oriented X 3. No motor deficit. No sensory deficit. Reflexes normal. Course Course Course Narrative: Status post G-tube replacement Procedures Feeding Tube Replacement Type of Tube: gastrostomy Insertion Site Prior to Procedure: clean Tube Used for Reinsertion: Avila Swedish Tube Size (F): 14 Balloon size (mL): 30 Verification of Placement: auscultation and KUB Tube Secured by: tape/dressing Patient Tolerated Procedure: well Additional Comments: Patient tolerated the procedure well with post procedure x-ray appear with no extravasation. Medical Decision Making Imaging Data Post G-tube placement x-ray: Radiologist's impression: G-tube in place. No contrast extravasation. Unremarkable bowel gas pattern. 4 mm density overlying the lower pole of the left kidney. Discharge Plan Discharge Clinical Impression: Gastrostomy tube dysfunction Patient Disposition: Home, Self-Care Instructions: PEG Tube Insertion (DC) Prescriptions: No Action insulin lispro 100 unit/mL Solution 10 unit SUBCUT TID PRN (Reason: Hyperglycemia) RF: 0 omeprazole 40 mg Capsule,Delayed Release(Dr/Ec) 20 mg PO DAILY RF: 0 bupropion HCl 150 mg tablet sustained-release 12 hr 75 mg PO QAM Qty: 0 RF: 0 gabapentin 100 mg Capsule 100 mg PO BID RF: 0 levothyroxine 25 mcg tablet 25 mcg PO DAILY RF: 0 Lantus U-100 Insulin 100 unit/mL solution 8 unit subcut DAILY PRN (Reason: Hyperglycemia) RF: 0 ondansetron HCl [Zofran] 4 mg tablet 8 mg PO TID RF: 0 gabapentin 100 mg capsule 100 mg PO DAILY RF: 0 sertraline 25 mg tablet 25 mg PO DAILY RF: 0 sertraline 50 mg tablet 50 mg PO DAILY RF: 0 Referrals: Physician,Unknown [Primary Care Provider] - 2 days
[2020-12-29] MEDS: Diatrizoate Meglumine, Sodium 120 ML SOLUTION PR (23:29)
== END 2020-12-29 23:52 | disposition home or self-care (01) ==
PROVIDERS: Emergency Provider Emergency Medicine
DX: K94.23 Gastrostomy malfunction (principal); Z79.899 Other long term (current) drug therapy
CPT/HCPCS: 43762; 74018; 99283

== ENCOUNTER 2021-01-10 18:53 | Emergency (ER) | payer OTHER, SELFPAY ==
--- NOTE | ~2021-01-10 | XR_ITS ---
EXAMINATION: ABDOMEN 1 VIEW CLINICAL INFORMATION: G-tube placement. COMPARISON: December 29, 2020. TECHNIQUE: A supine view of the abdomen is provided. The examination was performed following infusion of Gastrografin through the G-tube. FINDINGS: There are no dilated loops of small bowel. A G-tube is in place. Contrast is noted within the stomach and proximal small bowel. There is no contrast extravasation. There are no air-fluid levels. There is no appendicolith. The visualized lung bases are clear. The osseous structures are stable. XR/XR KUB IMPRESSION: Unremarkable bowel gas pattern. G-tube in place. No contrast extravasation.
[2021-01-10 19:02] VITALS: BP 122/65; PULSE 97; RESP 18; TEMP 36.7; O2SAT 97
[2021-01-10 19:15] VITALS: BP 101/64; BP 122/65; PULSE 100; PULSE 97; RESP 18; TEMP 36.7; O2SAT 97; BMI 23.1
--- NOTE | 2021-01-10 19:36 | ED_ITS ---
HPI - General Adult General Chief complaint: General Medical Stated complaint: G-TUBE OUT Time Seen by Provider: 01/10/21 19:22 Source: patient Mode of arrival: ambulatory Limitations: no limitations History of Present Illness HPI narrative: Patient G2 tube fell out while at the group home. Patient came to the ED to have it placed back in. Related Data Home Medications Medication Instructions Recorded Confirmed levothyroxine 25 mcg tablet 25 mcg PO DAILY 09/12/20 12/13/20 insulin lispro 10 unit SUBCUT TID PRN 10/05/20 12/13/20 gabapentin 100 mg capsule 100 mg PO DAILY 11/09/20 12/13/20 insulin glargine 100 unit/mL 8 unit SUBCUT DAILY PRN ml 11/09/20 11/12/20 subcutaneous solution ondansetron HCl 4 mg tablet 8 mg PO TID tab 11/09/20 12/13/20 sertraline 25 mg tablet 25 mg PO DAILY 11/09/20 12/13/20 sertraline 50 mg tablet 50 mg PO DAILY 11/09/20 12/13/20 gabapentin 100 mg PO BID 11/12/20 12/13/20 omeprazole 20 mg PO DAILY 12/13/20 12/13/20 Previous Rx's Medication Instructions Recorded bupropion HCl 75 mg PO QAM #0 tab 12/14/20 Allergies Allergy/AdvReac Type Severity Reaction Status Date / Time amoxicillin [AMOXICILLIN] Allergy Unknown SWELLING Verified 11/26/20 12:30 bee pollen [BEE STINGS] Allergy Unknown SWELLING Verified 11/26/20 12:30 clavulanic acid [Augmentin] Allergy Unknown Unknown Verified 11/26/20 12:30 shellfish derived Allergy Unknown HIVES Verified 11/26/20 12:30 [SHELLFISH DERIVED] turkey [TURKEY] Allergy Unknown SWELLING Verified 11/26/20 12:30 bees Allergy Unknown Swelling Uncoded 10/05/20 21:57 poultry Allergy Unknown Hives Uncoded 10/05/20 21:57 shellfish Allergy Unknown Hives Uncoded 10/05/20 21:57 Sulfa Allergy Unknown Hives Uncoded 10/05/20 21:57 [place] Allergy Unknown Hives Uncoded 10/05/20 21:57 Review of Systems Review of Systems: Yes all other systems are reviewed and are negative Constitutional: Constitutional: Reports as per HPI and Reports no additional constitutional complaints Eyes: Eyes: Reports as per HPI and Reports no additional eye complaints ENT: Reports system reviewed and no additional complaints, except as documented and Reports as per HPI Cardiovascular: Cardiovascular: Reports as per HPI and Reports no additional cardiovascular complaints Respiratory: Respiratory: Reports as per HPI and Reports no additional respiratory complaints Gastrointestinal: Gastrointestinal: Reports as per HPI and Reports no additional gastrointestinal complaints Comments: G-tube fell out Genitourinary: Genitourinary: Reports no additional male genitourinary complaints and Reports as per HPI Musculoskeletal: Musculoskeletal: Reports no additional musculoskeletal complaints and Reports as per HPI Neurologic: Reports system reviewed and no additional complaints, except as documented and Reports as per HPI Psychiatric: Psychiatric: Reports no additional psychiatric complaints and Reports as per HPI [facility] [place] Past Medical History Medical History BPH (benign prostatic hyperplasia) Chronic kidney disease Depression Diabetes Dysphagia Esophageal cancer HTN (hypertension), benign Hypothyroid Lumbar radiculopathy Neuropathy NIDDY (non-insulin dependent diabetes mellitus in young) Obesity Post herpetic neuralgia Urinary catheter in place Surgical History Hx of cholecystectomy Status post gastrostomy tube (G tube) placement, follow-up exam Family History Family History Father History of heart attack Mother Hx of diabetes mellitus Hx of arthrodesis Social History Social History Household Members: None Housing: Snf Alcohol intake: never Smoking Status: Never smoker Use of substances other than those prescribed or required for medical reasons: No Advance Directives: No Advance Directives Information Provided: No Advance Directives Date on File: 09/19/20 service: Yes Current occupational status: disabled Physical Exam Vital Signs: Vital Signs: Last Vital Signs Temp 98.3 F 01/10/21 21:06 Pulse 144 H 01/10/21 21:06 Resp 18 01/10/21 21:06 BP 110/67 01/10/21 21:06 Pulse Ox 93 01/10/21 21:06 Body Mass Index 23.1 Const: General: cooperative, healthy appearing, comfortable, no acute distress and well developed Orientation/consciousness: patient oriented x3 HENMT: Head: Yes normal to inspection and Yes No palpable skull fracture present Eyes: General: appearance normal, both eyes and all related structures Neck: Neck: Yes normal visual inspection, Yes full ROM, Yes no lymphadenopathy, Yes no meningeal signs, Yes trachea midline, Yes supple and No tender Chest: Chest palpation & inspection: normal inspection of the chest and normal palpation of entire chest wall Resp: Effort & Inspection: normal respiratory effort and able to speak in complete sentences Auscultation: clear to auscultation bilaterally Cardio: Jugular venous distension: no JVD Heart sounds: S1 normal heart sound present and S2 normal heart sound present GI: Other: Area way due to fill out/stoma negative for any pus discharge,erythema, or foul odor Inspection: Yes normal to inspection and No abdominal wall ecchymosis Palpation (GI): Soft to palpation, not firm, nontender, no guarding and not rigid : General: No CVA tenderness and Yes no CVA tenderness Back/Spine/Pelvis: Back: no CVA tenderness, No CVA tenderness and No back tenderness Skin: General skin exam: no rashes or lesions noted and elasticity normal Neuro: General: patient oriented x3, no meningeal signs and CN's II-XI intact bilaterally Extrem: Other: Bed ridden General: Yes normal to inspection and Yes full ROM Psych: Appearance: grossly normal, well kempt and not disheveled Course Course Course Narrative: Presently cannot find a size 14 G-tube. Size 14 fully straight cath placed in opening for G2 to keep the hole open. Reevaluation(s) Reevaluation #1: G-tube placement was attempted and not successful. Due to patient's complicated sinus tract. Size 14 regular Avila was used and successfully placed in stoma area of G-tube. Area was clean with normal saline alcohol swab. Lube placed on Avila for easier insertion. KUB x-ray was done and shows positive placement of G-tube with negative extravasation. 1 hour after this was done patient became tachycardic in the 140s. Patient denies any complaint. EKG shows sinus tach. Patient is hospice, and also DNI and DNR. No further intervention indicated. Will talk with attending. Time: 21:59 Reevaluation #2: Case discussed with Dr. Frey who agrees that no further interventation for the sinus tachycardia due to patient being hospice and is a DNI, DNV and DNR. Time: 22:09 Medical Decision Making MDM Narrative Medical decision making narrative: G-tube placed ECG Data Interpretation: Sinus tachycardia. Ventricular rate 142. [place] interval 128. QTC 427. Negative STEMI Discharge Plan Discharge Clinical Impression: Status post gastrostomy tube (G tube) placement, follow-up exam Patient Disposition: Home, Self-Care Instructions: Tube Feeding (DC) Additional Instructions: Return to the ED immediately and G tube falls out or any other concerning symptoms. Prescriptions: No Action insulin lispro 100 unit/mL Solution 10 unit SUBCUT TID PRN (Reason: Hyperglycemia) RF: 0 omeprazole 40 mg Capsule,Delayed Release(Dr/Ec) 20 mg PO DAILY RF: 0 bupropion HCl 150 mg tablet sustained-release 12 hr 75 mg PO QAM Qty: 0 RF: 0 gabapentin 100 mg Capsule 100 mg PO BID RF: 0 levothyroxine 25 mcg tablet 25 mcg PO DAILY RF: 0 Lantus U-100 Insulin 100 unit/mL solution 8 unit subcut DAILY PRN (Reason: Hyperglycemia) RF: 0 ondansetron HCl [Zofran] 4 mg tablet 8 mg PO TID RF: 0 gabapentin 100 mg capsule 100 mg PO DAILY RF: 0 sertraline 25 mg tablet 25 mg PO DAILY RF: 0 sertraline 50 mg tablet 50 mg PO DAILY RF: 0 Interventions: ED Discharge Assessment Last Done: 01/10/21 23:11 Discharge Date/Time: 01/10/21 23:13 Print Language: Spanish
[2021-01-10 21:06] VITALS: BP 110/67; PULSE 144; RESP 18; TEMP 36.8; O2SAT 93
--- NOTE | 2021-01-10 21:14 | ECG_ITS ---
Test Reason : TACHYCARDIA Blood Pressure : / mmHG Vent. Rate : 142 BPM Atrial Rate : 142 BPM P-R Int : 128 ms QRS Dur : 062 ms QT Int : 278 ms P-R-T Axes : 000 018 023 degrees QTc Int : 427 ms Sinus tachycardia vs atrial flutter Low voltage QRS When compared with ECG of 13-DEC-2020 23:21, Premature supraventricular complexes are no longer Present Heart rate is faster Referred By: Ashu Lovell Electronically Signed By:Vinayak Mart
--- NOTE | 2021-01-10 21:26 | PC.NURSE ---
medicated with SL zofran per order
--- NOTE | 2021-01-10 22:35 | PC.NURSE ---
[facility] got [facility], called back and a field research associate transferred this nurse to the nursing shift production supervisor on shift who took report and will pass it along to the floor.
== END 2021-01-10 23:13 | disposition home or self-care (01) ==
PROVIDERS: Emergency Provider Emergency Medicine
DX: Z43.1 Encounter for attention to gastrostomy (principal); R00.0 Tachycardia, unspecified; Z66 Do not resuscitate; E11.22 Type 2 diabetes mellitus with diabetic chronic kidney disease; I12.9 Hypertensive chronic kidney disease with stage 1 through stage 4 chronic kidney disease, or unspecified chronic kidney disease; N18.9 Chronic kidney disease, unspecified; Z96.0 Presence of urogenital implants; Z79.4 Long term (current) use of insulin; Z79.899 Other long term (current) drug therapy
CPT/HCPCS: 43762; 74018; 93005; 99283; 99284

== ENCOUNTER 2021-01-23 20:09 | Inpatient (IN) | payer MEDICARE, SELFPAY ==
[2021-01-23 20:14] VITALS: BP 128/79; PULSE 131; RESP 20; TEMP 37.9; O2SAT 94; BMI 25.9
[2021-01-23 20:32] LABS: Glucose, Whole Blood 151 mg/dL (60-115)
--- NOTE | 2021-01-23 20:33 | PC.NURSE ---
Press Department Manager gema notified of SIRS criteria. Okay to protocol labs
--- NOTE | 2021-01-23 21:02 | ED.GENADULT ---
HPI - General Adult General Chief complaint: General Medical Stated complaint: G-TUBE OUT Source: patient and other (RN) Mode of arrival: EMS Limitations: physical limitation History of Present Illness HPI narrative: 80-year-old male past medical history esophageal adenocarcinoma, Anderson's esophagus, insulin-dependent diabetes, neurogenic bladder with chronic Avila, neuropathy, hypothyroidism, BPH, stage 3 kidney disease, depression, chronic pain, and G-tube presents from a [facility] via EMS for G-tube replacement. This INFRASTRUCTURE CONSULTANT received telephone report from [facility] that the plan is for patient to present to the emergency department for G-tube replacement at 7:00 p.m.. Onset (ago): day(s) (1) Location: abdomen Related Data Home Medications Medication Instructions Recorded Confirmed insulin glargine 100 unit/mL 20 unit SUBCUT BID ml 11/09/20 01/23/21 subcutaneous solution ondansetron HCl 4 mg tablet 8 mg FEEDING TUBE TID tab 11/09/20 01/23/21 sertraline 25 mg tablet 25 mg FEEDING TUBE DAILY 11/09/20 01/23/21 sertraline 50 mg tablet 50 mg FEEDING TUBE DAILY 11/09/20 01/23/21 insulin lispro See Protocol SUBCUT TIDAC 01/23/21 01/23/21 oxycodone 10 mg FEEDING TUBE Q4H PRN 01/23/21 01/23/21 sennosides [senna] 8.6 mg FEEDING TUBE BEDTIME 01/23/21 01/23/21 Allergies Allergy/AdvReac Type Severity Reaction Status Date / Time amoxicillin [AMOXICILLIN] Allergy Unknown SWELLING Verified 11/26/20 12:30 bee pollen [BEE STINGS] Allergy Unknown SWELLING Verified 11/26/20 12:30 clavulanic acid [Augmentin] Allergy Unknown Unknown Verified 11/26/20 12:30 shellfish derived Allergy Unknown HIVES Verified 11/26/20 12:30 [SHELLFISH DERIVED] turkey [TURKEY] Allergy Unknown SWELLING Verified 11/26/20 12:30 bees Allergy Unknown Swelling Uncoded 10/05/20 21:57 poultry Allergy Unknown Hives Uncoded 10/05/20 21:57 shellfish Allergy Unknown Hives Uncoded 10/05/20 21:57 Sulfa Allergy Unknown Hives Uncoded 10/05/20 21:57 [place] Allergy Unknown Hives Uncoded 10/05/20 21:57 Review of Systems Review of Systems: Constitutional: No Fever, No Chills ENT/Mouth: No Ear Pain, No Hoarseness, No sore throat Eyes: No Eye Pain, No Swelling, No Redness, No Foreign Body Cardiovascular: No Chest Pain, No SOB Respiratory: No Cough, No Dyspnea Gastrointestinal: Positive G-tube accidental displacement, No Nausea, No Vomiting, No Diarrhea, No abdominal Pain Genitourinary: No Dysuria, No Hematuria Musculoskeletal: No joint pain, No Myalgias, No Joint Swelling Skin: No Skin lacerations, No rash Neuro: No Weakness, No Numbness, No Paresthesias, No Loss of Consciousness, No Dizziness, No Headache Psych: No Anxiety/Panic, No Depression Heme/Lymph: no easy bruising, no Lymphadenopathy Endocrine: No Polyuria, No Polydipsia Yes all other systems are reviewed and are negative [facility] Past Medical History Attestation statement: The following information was validated with the patient. Source: old records reviewed Medical History BPH (benign prostatic hyperplasia) Chronic kidney disease Depression Diabetes Dysphagia Esophageal cancer HTN (hypertension), benign Hypothyroid Lumbar radiculopathy Neuropathy NIDDY (non-insulin dependent diabetes mellitus in young) Obesity Post herpetic neuralgia Urinary catheter in place Surgical History Hx of cholecystectomy Status post gastrostomy tube (G tube) placement, follow-up exam Family History Family History Father History of heart attack Mother Hx of diabetes mellitus Hx of arthrodesis Social History Social History Household Members: Other Housing: Senior Living Do you presently have visiting nurse or other home services: No Alcohol intake: never Smoking Status: Former smoker Smoked in Last 30 Days: No Patient Interested in Nicotine Replacement: No Patient Given Instructions on How to Stop Smoking: No Second Hand Smoke Exposure: No Use of substances other than those prescribed or required for medical reasons: No Currently Displaying Signs/Symptoms of Drug Intoxication Withdrawal: No Any prior treatment program specific to substance use: No Have you been hit, kicked, punched, or otherwise hurt by someone within the past year? If so, by whom?: No Do you feel safe in your current relationship?: No Current Relationship Is there a partner from a previous relationship who is making you feel unsafe now?: No Are you made to feel afraid or neglected: No Advance Directives: Yes Advance Directives on File: Yes Advance Directives Date on File: 09/19/20 Do you have thoughts of harming others: None Do you have a plan to hurt others: No Plan Recently lost weight without trying: Unsure service: Yes Current occupational status: disabled Physical Exam Vital Signs: Vital Signs: Last Vital Signs Temp 96.8 F 01/24/21 01:25 Pulse 105 H 01/24/21 01:25 Resp 18 01/24/21 01:25 BP 116/75 01/24/21 01:25 Pulse Ox 96 01/24/21 01:25 Body Mass Index 25.9 Appearance: Alert. Oriented X3. Moderate distress. Febrile, tachycardic Eyes: Pupils equal, round and reactive to light. EOMI ENT: Pharynx normal. Dry mucous membranes Neck: Normal inspection. Neck supple. CVS: Tachycardic heart rate and rhythm. Pulses bounding. Respiratory: No respiratory distress. Expiratory wheezes throughout Abdomen: Soft and diffusely tender, G-tube site with taken drainage, closed, unable to access stoma Skin: Skin warm and dry. Pale skin color. Normal skin turgor. Genitourinary: Avila clogged, changed upon arrival 450 mL residual after Avila change. Extremities: No lower extremity edema. Neuro: No motor deficit. No sensory deficit. Course Course Course Narrative: 80-year-old male past medical history esophageal adenocarcinoma, Anderson's esophagus, insulin-dependent diabetes, neurogenic bladder with chronic Avila, neuropathy, hypothyroidism, BPH, stage 3 kidney disease, depression, chronic pain, and G-tube presents from a [facility] via EMS for G-tube replacement. Upon my initial assessment patient is tachycardic, febrile, Avila cath is occluded, RN initiated sepsis protocol. Patient is a DNR, DNI, do not hospitalize, no noninvasive ventilation, no dialysis, no artificial nutrition or hydration. Patient has the G-tube for medications only. Nursing notes from [facility] facility report the last pain management or medications given via G-tube was 01/23/2021 at 8:15 a.m.. Note states that the G-tube was working properly at 4:15 p.m.. I did attempt to replace the G-tube, however stoma is closed and I am unable to cannulate with G-tube. 928 pm discussion with Salma Rebollar patient's power of health care attorney and healthcare proxy as well as niece, , detailed description of patient's condition he does have sepsis suspected to be UTI. Niece would like fluid resuscitation done gently, IV antibiotics, and possible IR intervention for G-tube replacement so he can have adequate medications. She has agreed to IV medications for pain control, and we would admit for sepsis UTI. Patient's family does not want aggressive fluid resuscitation consistent with sepsis protocol. [id number], discussion with hospitalist, plan of care is to admit for UTI sepsis with the aforementioned treatment plan which includes gentle fluid resuscitation, IV pain management, and IV antibiotics. Medical Decision Making Differential Diagnosis Differential Diagnosis: G-tube replacement, UTI sepsis Medical Records Medical records reviewed: Yes I reviewed the patient's medical records. Lab Data Lab results reviewed: Yes I reviewed the patient's lab results. Result diagrams: 01/23/21 21:13 01/23/21 21:13 Labs: Lab Results 01/23/21 01/23/21 01/23/21 Range/Units 17:56 20:26 21:08 WBC (4.8-10.8) X10*3/uL RBC (4.60-5.80) X10*6/uL Hgb (14.0-18.0) g/dl Hct (42-52) % MCV (80-98) fL MCH (27.0-33.0) pg MCHC (31.0-36.0) g/dl RDW (11.0-16.0) % Plt Count (160-400) X10*3/uL MPV (9.4-12.4) fL Immature Gran % (Auto) (0.0-0.4) % Neut % (Auto) (45-73) % Lymph % (Auto) (20-40) % [place] % (Auto) (2-11) % Eos % (Auto) (0-4) % Baso % (Auto) (0-2) % Lymph # (Auto) (1.2-4.9) X10*3/uL [place] # (Auto) (0.1-1.2) X10*3/uL Eos # (Auto) (0.0-0.4) X10*3/uL Baso # (Auto) (0.0-0.2) X10*3/uL Abs Immat Gran (auto) (0.00-0.03) X10*3/uL Absolute Neuts (auto) (2.0-8.3) X10*3/uL Absolute Nucleated RBC (0.0-0.012) X10*3/uL Nucleated RBC % (auto) (0.0-0.2) /100WBC Hold Purple Top Hold Blue Top SEE NOTE Sodium (135-145) mmol/L Potassium (3.3-5.1) mmol/L Chloride (96-108) mmol/L Carbon Dioxide (22-29) mmol/L Anion Gap (12-20) BUN (9-16) mg/dL Creatinine (0.5-1.4) mg/dL Estim Creat Clear Calc Estimated GFR POC Glucose 151 H (60-115) mg/dL Random Glucose (60-115) mg/dL Lactic Acid (0.5-2.0) mmol/L Calcium (8.4-10.2) mg/dL Total Bilirubin (0.0-1.0) mg/dL Direct Bilirubin (0.0-0.5) mg/dL AST (5-37) U/L ALT (0-40) U/L Alkaline Phosphatase (39-117) U/L Total Protein (6.5-8.0) g/dL Albumin (3.5-5.0) g/dL Urine Color YELLOW Urine Appearance CLOUDY Urine pH 8.5 H (5.0-8.0) Ur Specific [place] 1.015 (1.005-1.025) Urine Protein 2+ H (NEG-TRACE) MG/DL Urine Glucose (UA) NEG (NEG) MG/DL Urine Ketones NEG (NEG) MG/DL Urine Blood 3+ H (NEG) Urine Nitrite NEG (NEG) Ur Leukocyte Esterase 3+ H (NEG) Urine RBC 1-4 (0) /HPF Urine WBC 30-49 H (0-4) /HPF Ur Squamous Epith Cells TRACE /LPF Urine Bacteria 3+ /LPF COVID-19 (АЛЕКСАНДР) (Negative) COVID-19 Clin Com 01/23/21 01/23/21 01/23/21 Range/Units 21:12 21:12 21:13 WBC 20.7 H (4.8-10.8) X10*3/uL RBC 4.10 L (4.60-5.80) X10*6/uL Hgb 12.3 L (14.0-18.0) g/dl Hct 36.3 L (42-52) % MCV 88.5 (80-98) fL MCH 30.0 (27.0-33.0) pg MCHC 33.9 (31.0-36.0) g/dl RDW 15.6 (11.0-16.0) % Plt Count 532 H (160-400) X10*3/uL MPV 9.0 L (9.4-12.4) fL Immature Gran % (Auto) 0.9 H (0.0-0.4) % Neut % (Auto) 85.4 H (45-73) % Lymph % (Auto) 5.7 L (20-40) % [place] % (Auto) 6.8 (2-11) % Eos % (Auto) 0.8 (0-4) % Baso % (Auto) 0.4 (0-2) % Lymph # (Auto) 1.2 (1.2-4.9) X10*3/uL [place] # (Auto) 1.4 H (0.1-1.2) X10*3/uL Eos # (Auto) 0.2 (0.0-0.4) X10*3/uL Baso # (Auto) 0.1 (0.0-0.2) X10*3/uL Abs Immat Gran (auto) 0.19 H (0.00-0.03) X10*3/uL Absolute Neuts (auto) 17.7 H (2.0-8.3) X10*3/uL Absolute Nucleated RBC 0.000 (0.0-0.012) X10*3/uL Nucleated RBC % (auto) 0.0 (0.0-0.2) /100WBC Hold Purple Top SEE NOTE Hold Blue Top Sodium (135-145) mmol/L Potassium (3.3-5.1) mmol/L Chloride (96-108) mmol/L Carbon Dioxide (22-29) mmol/L Anion Gap (12-20) BUN (9-16) mg/dL Creatinine (0.5-1.4) mg/dL Estim Creat Clear Calc Estimated GFR POC Glucose (60-115) mg/dL Random Glucose (60-115) mg/dL Lactic Acid (0.5-2.0) mmol/L Calcium (8.4-10.2) mg/dL Total Bilirubin (0.0-1.0) mg/dL Direct Bilirubin (0.0-0.5) mg/dL AST (5-37) U/L ALT (0-40) U/L Alkaline Phosphatase (39-117) U/L Total Protein (6.5-8.0) g/dL Albumin (3.5-5.0) g/dL Urine Color Urine Appearance Urine pH (5.0-8.0) Ur Specific [place] (1.005-1.025) Urine Protein (NEG-TRACE) MG/DL Urine Glucose (UA) (NEG) MG/DL Urine Ketones (NEG) MG/DL Urine Blood (NEG) Urine Nitrite (NEG) Ur Leukocyte Esterase (NEG) Urine RBC (0) /HPF Urine WBC (0-4) /HPF Ur Squamous Epith Cells /LPF Urine Bacteria /LPF COVID-19 (АЛЕКСАНДР) Negative (Negative) COVID-19 Clin Com See Note 01/23/21 01/23/21 Range/Units 21:13 21:13 WBC (4.8-10.8) X10*3/uL RBC (4.60-5.80) X10*6/uL Hgb (14.0-18.0) g/dl Hct (42-52) % MCV (80-98) fL MCH (27.0-33.0) pg MCHC (31.0-36.0) g/dl RDW (11.0-16.0) % Plt Count (160-400) X10*3/uL MPV (9.4-12.4) fL Immature Gran % (Auto) (0.0-0.4) % Neut % (Auto) (45-73) % Lymph % (Auto) (20-40) % [place] % (Auto) (2-11) % Eos % (Auto) (0-4) % Baso % (Auto) (0-2) % Lymph # (Auto) (1.2-4.9) X10*3/uL [place] # (Auto) (0.1-1.2) X10*3/uL Eos # (Auto) (0.0-0.4) X10*3/uL Baso # (Auto) (0.0-0.2) X10*3/uL Abs Immat Gran (auto) (0.00-0.03) X10*3/uL Absolute Neuts (auto) (2.0-8.3) X10*3/uL Absolute Nucleated RBC (0.0-0.012) X10*3/uL Nucleated RBC % (auto) (0.0-0.2) /100WBC Hold Purple Top Hold Blue Top Sodium 130 L (135-145) mmol/L Potassium 5.2 H (3.3-5.1) mmol/L Chloride 98 (96-108) mmol/L Carbon Dioxide 23 (22-29) mmol/L Anion Gap 14 (12-20) BUN 51 H (9-16) mg/dL Creatinine 1.26 (0.5-1.4) mg/dL Estim Creat Clear Calc 41.4 Estimated GFR 55 POC Glucose (60-115) mg/dL Random Glucose 150 H D (60-115) mg/dL Lactic Acid 1.7 (0.5-2.0) mmol/L Calcium 10.0 (8.4-10.2) mg/dL Total Bilirubin 0.8 (0.0-1.0) mg/dL Direct Bilirubin 0.4 (0.0-0.5) mg/dL AST 23 (5-37) U/L ALT 28 (0-40) U/L Alkaline Phosphatase 120 H (39-117) U/L Total Protein 7.1 (6.5-8.0) g/dL Albumin 3.4 L (3.5-5.0) g/dL Urine Color Urine Appearance Urine pH (5.0-8.0) Ur Specific [place] (1.005-1.025) Urine Protein (NEG-TRACE) MG/DL Urine Glucose (UA) (NEG) MG/DL Urine Ketones (NEG) MG/DL Urine Blood (NEG) Urine Nitrite (NEG) Ur Leukocyte Esterase (NEG) Urine RBC (0) /HPF Urine WBC (0-4) /HPF Ur Squamous Epith Cells /LPF Urine Bacteria /LPF COVID-19 (АЛЕКСАНДР) (Negative) COVID-19 Clin Com Critical Care Time Critical Care Time Critical Care Time: Yes Total Critical Care Time: 45 Attestation: I have personally provided critical care time exclusive of time spent on separately billable procedures. Time includes review of laboratory data, radiology results, discussion with consultants, and monitoring for potential decompensation. Interventions were performed as documented. Discharge Plan Discharge Clinical Impression: UTI (urinary tract infection) due to urinary indwelling catheter Qualifiers: Indwelling urinary catheter type: indwelling urethral catheter Encounter type: initial encounter Qualified Code(s): T83.511A - Infection and inflammatory reaction due to indwelling urethral catheter, initial encounter Sepsis Qualifiers: Sepsis type: sepsis due to unspecified organism Sepsis acute organ dysfunction status: unspecified Qualified Code(s): A41.9 - Sepsis, unspecified organism Patient Disposition: Admitted As Inpatient Interventions: Admission Worksheet (ED) Last Done: 01/24/21 00:35 Discharge Date/Time: 01/24/21 01:00
[2021-01-23 21:22] LABS: MANUAL DIFF FLAG NO
[2021-01-23 21:25] LABS: Basophils Absolute Auto 0.1 X10*3/uL (0.0-0.2); Basophils Percent Auto 0.4 % (0-2); Eosinophils Absolute Auto 0.2 X10*3/uL (0.0-0.4); Eosinophils Percent Auto 0.8 % (0-4); Hematocrit 36.3 % (42-52); Hemoglobin 12.3 g/dl (14.0-18.0); Imm Gran Abs Auto 0.19 X10*3/uL (0.00-0.03); Imm Gran Pct Auto 0.9 % (0.0-0.4); Lymphocytes Absolute Auto 1.2 X10*3/uL (1.2-4.9); Lymphocytes Percent Auto 5.7 % (20-40); Mean Corpuscular HGB Conc 33.9 g/dl (31.0-36.0); Mean Corpuscular Volume 88.5 fL (80-98); Monocytes Absolute Auto 1.4 X10*3/uL (0.1-1.2); Monocytes Percent Auto 6.8 % (2-11); Neutrophils Absolute Auto 17.7 X10*3/uL (2.0-8.3); Neutrophils Percent Auto 85.4 % (45-73); Platelet Count 532 X10*3/uL (160-400); Red Cell Distribution Width 15.6 % (11.0-16.0); White Blood Count 20.7 X10*3/uL (4.8-10.8)
[2021-01-23 21:31] LABS: Glucose Urine UA NEG (NEG); Leukocyte Esterase Urine 3+ (NEG); Nitrite Urine NEG (NEG); PH 8.5 (5.0-8.0); Specific Gravity - Urine 1.015 (1.005-1.025); UACC Culture Trigger YES; Urine Blood 3+ (NEG); Urine Ketones NEG (NEG)
[2021-01-23 21:34] LABS: Appearance Urine CLOUDY; Color Urine YELLOW; Urine Protein 2+ MG/DL (NEG-TRACE)
[2021-01-23 21:37] LABS: COVID-19 Test Negative (Negative)
[2021-01-23 21:41] LABS: Lactic Acid 1.7 mmol/L (0.5-2.0)
--- NOTE | 2021-01-23 21:43 | PC.NURSE ---
per [facility] run ivf at 100/hr
[2021-01-23] MEDS: HYDROmorphone HCl 1 MG/ML SYRINGE IVPUSH (21:44)
[2021-01-23] MEDS: cefTRIAXone sodium 1 GM in 0.9 % Sodium Chloride 50 ML IV (21:45)
[2021-01-23] MEDS: 0.9 % Sodium Chloride 1,000 ML 100 ML IVCONT (21:45)
[2021-01-23 21:46] LABS: Alanine Aminotransferase 28 U/L (0-40); Albumin Level 3.4 g/dL (3.5-5.0); Alkaline Phosphatase 120 U/L (39-117); Anion Gap 14 (12-20); Aspartate Amino Transferase 23 U/L (5-37); Bilirubin Direct 0.4 mg/dL (0.0-0.5); Bilirubin Total 0.8 mg/dL (0.0-1.0); Blood Urea Nitrogen 51 mg/dL (9-16); Carbon Dioxide 23 mmol/L (22-29); Chloride 98 mmol/L (96-108); Creatinine Clr Calc Pharmacy 41.4; Estimated Glomerular Filt Rate 55; Glucose Random 150 mg/dL (60-115); Potassium 5.2 mmol/L (3.3-5.1); Sodium 130 mmol/L (135-145); Total Protein 7.1 g/dL (6.5-8.0)
[2021-01-23 21:51] VITALS: BP 103/66; PULSE 121; RESP 18; O2SAT 90
[2021-01-23 21:54] LABS: Bacteria Urine 3+ /LPF; Squamous Epithelial Cell Urine TRACE /LPF; WBC Urine 30-49 /HPF (0-4)
[2021-01-23 23:30] VITALS: BP 103/59; PULSE 107; RESP 16; TEMP 36.6; O2SAT 92
--- NOTE | 2021-01-23 23:39 | P.HPHOSP_ITS ---
History of Present Illness Date of Service: 01/23/21 Chief Complaint: G-tube dislodged With a past medical history of hypertension, hyperlipidemia, hypothyroidism, diabetes, chronic kidney disease, BPH, history of esophageal cancer, dysphagia, history of G-tube, neurogenic bladder on chronic Avila presented to the hospital with a chief complaint of G-tube dislodgement. Patient is drowsy. Does not appear to be in distress. Spoke to the RN in the ER.. Most of the history obtained from the records and the staff. Reportedly patient denies any chest pain palpitations lightheadedness or dizziness. Denies any numbness tingling. Denies any GI or symptoms. Review of all other systems is negative except mentioned above ER course: Per ER team they tried to replace the G-tube but also unable to do so. Lab showed leukocytosis and sepsis picture. Urinalysis was abnormal consistent with UTI-started on ceftriaxone-patient tolerated ceftriaxone well. ER team mentioned the Avila was occluded and has been replaced in the ER. [facility] Medical History (Updated 01/24/21 @ 09:51 by Isaias Talamantes MD) BPH (benign prostatic hyperplasia) Chronic kidney disease Depression Diabetes Dislodged gastrostomy tube Dysphagia Esophageal cancer HTN (hypertension), benign Hypothyroid Lumbar radiculopathy Neuropathy NIDDY (non-insulin dependent diabetes mellitus in young) Obesity Post herpetic neuralgia Urinary catheter in place Family History Father History of heart attack Mother Hx of diabetes mellitus Hx of arthrodesis Surgical History Hx of cholecystectomy Status post gastrostomy tube (G tube) placement, follow-up exam Social History Household Members: Other Housing: Long-Term Alcohol intake: never Smoking Status: Former smoker Second Hand Smoke Exposure: No Advance Directives Date on File: 09/19/20 service: Yes Current occupational status: disabled Meds Allergies Allergy/AdvReac Type Severity Reaction Status Date / Time amoxicillin [AMOXICILLIN] Allergy Unknown SWELLING Verified 11/26/20 12:30 bee pollen [BEE STINGS] Allergy Unknown SWELLING Verified 11/26/20 12:30 clavulanic acid [Augmentin] Allergy Unknown Unknown Verified 11/26/20 12:30 shellfish derived Allergy Unknown HIVES Verified 11/26/20 12:30 [SHELLFISH DERIVED] turkey [TURKEY] Allergy Unknown SWELLING Verified 11/26/20 12:30 bees Allergy Unknown Swelling Uncoded 10/05/20 21:57 poultry Allergy Unknown Hives Uncoded 10/05/20 21:57 shellfish Allergy Unknown Hives Uncoded 10/05/20 21:57 Sulfa Allergy Unknown Hives Uncoded 10/05/20 21:57 [place] Allergy Unknown Hives Uncoded 10/05/20 21:57 Active Medications: Current Medications Generic Name Dose Route Start Last Admin Trade Name Freq PRN Reason Stop Dose Admin Enoxaparin Sodium 40 mg 01/23/21 23:45 Enoxaparin Sodium 40 Mg/0.4 Ml Syringe SUBCUT Q24H [facility] Dextrose/Sodium Chloride 1,000 mls @ 75 mls/hr 01/23/21 23:45 D51/2ns IVCONT .[id number] [facility] Insulin Human Lispro 0 unit 01/24/21 07:30 Insulin Lispro 100 Unit/Ml 3 Ml Vial SUBCUT QIDACHS [facility] Protocol Morphine Sulfate 1 mg 01/24/21 23:33 Morphine Sulfate 4 Mg/Ml Cartridge IVPUSH Q6H PRN Pain, Severe (Pain Scale 7-10) Sertraline HCl 25 mg 01/24/21 09:00 Sertraline Hcl 25 Mg Tablet G-TUBE DAILY [facility] Sertraline HCl 50 mg 01/24/21 09:00 Sertraline Hcl 50 Mg Tablet G-TUBE DAILY [facility] Home Medications Medication Instructions Recorded Confirmed Last Taken Type ondansetron HCl 4 mg tablet 8 mg FEEDING TUBE TID tab 11/09/20 01/23/21 Unknown History Physical Exam Vital Signs and Narrative: Vital Signs: Last Vital Signs Temp 97.9 F 01/23/21 23:30 Pulse 107 H 01/23/21 23:30 Resp 16 01/23/21 23:30 BP 103/59 L 01/23/21 23:30 Pulse Ox 92 01/23/21 23:30 Body Mass Index 25.9 Gen: Appears be in no acute distress HEENT: NCAT, Moist mucosa. Pulmonary: Vesicular breath sounds, fair air entry CVS: Normal S1-S2 Abdomen: BS+, Soft, Nontender Extremities: Warm well perfused Neuro: Alert and awake. Results Labs CBC and Chem 7: 01/24/21 05:44 01/24/21 05:44 Labs: Laboratory Results - last 24 hr 01/23/21 01/23/21 01/23/21 17:56 20:26 21:08 MCV MCH MCHC RDW Plt Count MPV Immature Gran % (Auto) Neut % (Auto) Lymph % (Auto) [place] % (Auto) Eos % (Auto) Baso % (Auto) Lymph # (Auto) [place] # (Auto) Eos # (Auto) Baso # (Auto) Abs Immat Gran (auto) Absolute Neuts (auto) Absolute Nucleated RBC Nucleated RBC % (auto) Hold Purple Top Hold Blue Top SEE NOTE Anion Gap Estim Creat Clear Calc Estimated GFR POC Glucose 151 H Random Glucose Lactic Acid Calcium Total Bilirubin Direct Bilirubin AST ALT Alkaline Phosphatase Total Protein Albumin Urine Color YELLOW Urine Appearance CLOUDY Urine pH 8.5 H Ur Specific [place] 1.015 Urine Protein 2+ H Urine Glucose (UA) NEG Urine Ketones NEG Urine Blood 3+ H Urine Nitrite NEG Ur Leukocyte Esterase 3+ H Urine RBC 1-4 Urine WBC 30-49 H Ur Squamous Epith Cells TRACE Urine Bacteria 3+ COVID-19 (АЛЕКСАНДР) COVID-19 Clin Com 01/23/21 01/23/21 01/23/21 21:12 21:12 21:13 MCV 88.5 MCH 30.0 MCHC 33.9 RDW 15.6 Plt Count 532 H MPV 9.0 L Immature Gran % (Auto) 0.9 H Neut % (Auto) 85.4 H Lymph % (Auto) 5.7 L [place] % (Auto) 6.8 Eos % (Auto) 0.8 Baso % (Auto) 0.4 Lymph # (Auto) 1.2 [place] # (Auto) 1.4 H Eos # (Auto) 0.2 Baso # (Auto) 0.1 Abs Immat Gran (auto) 0.19 H Absolute Neuts (auto) 17.7 H Absolute Nucleated RBC 0.000 Nucleated RBC % (auto) 0.0 Hold Purple Top SEE NOTE Hold Blue Top Anion Gap Estim Creat Clear Calc Estimated GFR POC Glucose Random Glucose Lactic Acid Calcium Total Bilirubin Direct Bilirubin AST ALT Alkaline Phosphatase Total Protein Albumin Urine Color Urine Appearance Urine pH Ur Specific [place] Urine Protein Urine Glucose (UA) Urine Ketones Urine Blood Urine Nitrite Ur Leukocyte Esterase Urine RBC Urine WBC Ur Squamous Epith Cells Urine Bacteria COVID-19 (АЛЕКСАНДР) Negative COVID-19 Clin Com See Note 01/23/21 01/23/21 21:13 21:13 MCV MCH MCHC RDW Plt Count MPV Immature Gran % (Auto) Neut % (Auto) Lymph % (Auto) [place] % (Auto) Eos % (Auto) Baso % (Auto) Lymph # (Auto) [place] # (Auto) Eos # (Auto) Baso # (Auto) Abs Immat Gran (auto) Absolute Neuts (auto) Absolute Nucleated RBC Nucleated RBC % (auto) Hold Purple Top Hold Blue Top Anion Gap 14 Estim Creat Clear Calc 41.4 Estimated GFR 55 POC Glucose Random Glucose 150 H D Lactic Acid 1.7 Calcium 10.0 Total Bilirubin 0.8 Direct Bilirubin 0.4 AST 23 ALT 28 Alkaline Phosphatase 120 H Total Protein 7.1 Albumin 3.4 L Urine Color Urine Appearance Urine pH Ur Specific [place] Urine Protein Urine Glucose (UA) Urine Ketones Urine Blood Urine Nitrite Ur Leukocyte Esterase Urine RBC Urine WBC Ur Squamous Epith Cells Urine Bacteria COVID-19 (АЛЕКСАНДР) COVID-19 Clin Com Assessment and Plan (1) UTI (urinary tract infection) due to urinary indwelling catheter: Qualifiers: Encounter type: initial encounter Indwelling urinary catheter type: indwelling urethral catheter Qualified Code(s): T83.511A - Infection and inflammatory reaction due to indwelling urethral catheter, initial encounter; N39.0 - Urinary tract infection, site not specified Status: Acute 80-year-old male with a past medical history of hypertension, hyperlipidemia, diabetes, hypothyroidism, depression, CKD, BPH, esophageal cancer, dysphagia, history of chronic Avila, history of G-tube; presented to the hospital with a chief complaint of G-tube displacement. Noted to have UTI. Admitted for further management. UTI: Continue ceftriaxone. Follow up cultures. Avila replaced in the ER. Glans/meatal hyperemia/retracted foreskin of the penis: Unclear chronicity. Patient had Avila replaced in the ER. Tender on palpation. Glans appears erythematous and mildly swollen. Urology consulted for further recommendations. G-tube dislodgement: ER try to replace it but was unsuccessful. Will consult GI for further recommendations visions. Diabetes: Insulin sliding scale Mild hyperkalemia: Will monitor levels. Diet: Patient is strict NPO given history of esophageal cancer/dysphagia. Usually takes medications to the GT. Currently on hold replacement of the G- tube. Gentle IV fluids. All other chronic conditions, home medications to be resumed once G-tube in place. Code status: DNR/DNI Patient's Valeria Marsh-healthcare proxy, was notified; who mentions that patient has DNR DNI/DNH orders. But currently agreeable for antibiotics, admission, IV fluids. Mentioned that in the patient failed G-tube replacement, will decided that point about the goals of care.
--- NOTE | 2021-01-23 23:58 | PC.NURSE ---
attempted to give report no answer
--- NOTE | 2021-01-24 00:15 | PC.NURSE ---
attempted to give report to demetria hair. Rn unavailable.
[2021-01-24] MEDS: Enoxaparin Sodium 40 MG/0.4 ML SYRINGE SUBCUT (01:20)
[2021-01-24 01:25] VITALS: BP 116/75; PULSE 105; RESP 18; TEMP 36; O2SAT 96
[2021-01-24] MEDS: Dextrose 5 % and 0.45 % NaCl 1,000 ML 75 ML IVCONT (03:26)
[2021-01-24 04:00] VITALS: BP 119/88; PULSE 109; RESP 16; TEMP 36.1; O2SAT 95
--- NOTE | 2021-01-24 05:05 | PC.NURSE ---
PATIENT IS A 80 YEAR OLD MALE ADMITTED TO [facility] FROM ED WITH DX;UTI. [facility] AND SENT TO ED AFTER HIS GT BECAME DISLODGED AT THE FACILITY. PT TREATED IN ED, HAS A CHRONIC ARREGUIN AND ARREGUIN CATHETER WAS CHANGED AND CLEANSING OF FORESKIN. UPON ADMISSION TO FLOOR, ARREGUIN PATENT AND DRAINING HANY URINE, HOWEVER, URINARY MEATUS AND TOP OF PENIS NOTED BEEFY RED, AND EDEMATOUS. UNABLE TO RETRACT AND VERY PAINFUL PATIENT SITS UPRIGHT AND FLINCHES WHEN TOUCHED. SKIN IS MOVEABLE, JUST NOTED WILL NOT STAY RETRACTED. HOSPITALIST WAS ASKED TO EVALUATE PATIENT AND HE CAME TO THE BEDSIDE WITH THIS OUTPATIENT CODER. HE THEREFORE PUT IN A STAT UROLOGY CONSULT FOR THIS AM. WILL ALERT AND UPDATE DR. JARVIS
[2021-01-24 06:06] LABS: MANUAL DIFF FLAG NO
[2021-01-24 06:55] LABS: Basophils Absolute Auto 0.1 X10*3/uL (0.0-0.2); Basophils Percent Auto 0.5 % (0-2); Eosinophils Absolute Auto 0.3 X10*3/uL (0.0-0.4); Eosinophils Percent Auto 2.5 % (0-4); Hematocrit 34.8 % (42-52); Hemoglobin 11.4 g/dl (14.0-18.0); Imm Gran Abs Auto 0.16 X10*3/uL (0.00-0.03); Imm Gran Pct Auto 1.2 % (0.0-0.4); Lymphocytes Absolute Auto 1.5 X10*3/uL (1.2-4.9); Lymphocytes Percent Auto 11.1 % (20-40); Mean Corpuscular HGB Conc 32.8 g/dl (31.0-36.0); Mean Corpuscular Volume 91.6 fL (80-98); Mean Platelet Volume 9.5 fL (9.4-12.4); Monocytes Absolute Auto 1.3 X10*3/uL (0.1-1.2); Monocytes Percent Auto 10.2 % (2-11); Neutrophils Absolute Auto 9.7 X10*3/uL (2.0-8.3); Neutrophils Percent Auto 74.5 % (45-73); Platelet Count 449 X10*3/uL (160-400); Red Cell Distribution Width 15.8 % (11.0-16.0); White Blood Count 13.1 X10*3/uL (4.8-10.8)
[2021-01-24 07:17] LABS: Blood Urea Nitrogen 50 mg/dL (9-16); Calcium 9.4 mg/dL (8.4-10.2); Creatinine Clr Calc Pharmacy 41.4; Estimated Glomerular Filt Rate 55; Glucose Random 173 mg/dL (60-115)
[2021-01-24 07:29] VITALS: BP 93/55; PULSE 114; RESP 17; TEMP 36.3; O2SAT 98
[2021-01-24 07:36] LABS: Glucose, Whole Blood 184 mg/dL (60-115)
[2021-01-24 08:07] LABS: Anion Gap 18 (12-20); Carbon Dioxide 22 mmol/L (22-29); Chloride 100 mmol/L (96-108); Potassium 5.1 mmol/L (3.3-5.1); Sodium 135 mmol/L (135-145)
--- NOTE | 2021-01-24 09:46 | PM.CNGS ---
History of Present Illness Consult details Consult date: 01/24/21 Narrative: 80-year-old male referred because of dislodged G-tube. He has known esophageal cancer, and underwent an old gastrostomy tube placement last October,. He was told history morning that this came out accidentally so he was brought to the emergency room. However, attempts to reinserted the G-tube unsuccessful. He was noted to have a UTI as well as was admitted. I was called this morning to replace the G-tube. Patient otherwise denies any significant complaints. He says he has been tolerating tube feeds has had no problems with G-tube function. Review of Systems Constitutional: Constitutional: Denies chills and Denies fever(s) Cardiovascular: Cardiovascular: Denies chest pain, Denies dyspnea and Denies dyspnea on exertion Respiratory: Respiratory: Denies cough, Denies dyspnea and Denies dyspnea on exertion Gastrointestinal: Gastrointestinal: Denies hematochezia and Denies change in bowel habits Genitourinary: Genitourinary: Denies hematuria and Denies difficulty urinating Musculoskeletal: Musculoskeletal: Denies back pain and Denies limited range of motion Neurologic: Denies focal weakness and Denies convulsions Psychiatric: Psychiatric: Denies depression and Denies mood swings PMFSH Past Medical History Medical History (Updated 01/24/21 @ 09:51 by Isaias Talamantes MD) BPH (benign prostatic hyperplasia) Chronic kidney disease Depression Diabetes Dislodged gastrostomy tube Dysphagia Esophageal cancer HTN (hypertension), benign Hypothyroid Lumbar radiculopathy Neuropathy NIDDY (non-insulin dependent diabetes mellitus in young) Obesity Post herpetic neuralgia Urinary catheter in place Family History Family History Father History of heart attack Mother Hx of diabetes mellitus Hx of arthrodesis Surgical History Surgical History Hx of cholecystectomy Status post gastrostomy tube (G tube) placement, follow-up exam Social History Social History Household Members: Other Housing: Skilled Nursing Do you presently have visiting nurse or other home services: No Alcohol intake: never Smoking Status: Former smoker Smoked in Last 30 Days: No Patient Interested in Nicotine Replacement: No Patient Given Instructions on How to Stop Smoking: No Second Hand Smoke Exposure: No Use of substances other than those prescribed or required for medical reasons: No Currently Displaying Signs/Symptoms of Drug Intoxication Withdrawal: No Any prior treatment program specific to substance use: No Have you been hit, kicked, punched, or otherwise hurt by someone within the past year? If so, by whom?: No Do you feel safe in your current relationship?: No Current Relationship Is there a partner from a previous relationship who is making you feel unsafe now?: No Are you made to feel afraid or neglected: No Advance Directives: Yes Advance Directives on File: Yes Advance Directives Date on File: 09/19/20 Do you have thoughts of harming others: None Do you have a plan to hurt others: No Plan Recently lost weight without trying: Unsure service: Yes Current occupational status: disabled Meds Allergies Allergy/AdvReac Type Severity Reaction Status Date / Time amoxicillin [AMOXICILLIN] Allergy Unknown SWELLING Verified 11/26/20 12:30 bee pollen [BEE STINGS] Allergy Unknown SWELLING Verified 11/26/20 12:30 clavulanic acid [Augmentin] Allergy Unknown Unknown Verified 11/26/20 12:30 shellfish derived Allergy Unknown HIVES Verified 11/26/20 12:30 [SHELLFISH DERIVED] turkey [TURKEY] Allergy Unknown SWELLING Verified 11/26/20 12:30 bees Allergy Unknown Swelling Uncoded 10/05/20 21:57 poultry Allergy Unknown Hives Uncoded 10/05/20 21:57 shellfish Allergy Unknown Hives Uncoded 10/05/20 21:57 Sulfa Allergy Unknown Hives Uncoded 10/05/20 21:57 [place] Allergy Unknown Hives Uncoded 10/05/20 21:57 Active Medications: Current Medications Generic Name Dose Route Start Last Admin Trade Name Freq PRN Reason Stop Dose Admin Enoxaparin Sodium 40 mg 01/24/21 01:00 01/24/21 01:20 Enoxaparin Sodium 40 Mg/0.4 Ml Syringe SUBCUT 40 mg Q24H VARUN Administration Ceftriaxone Sodium 1 gm/ 50 mls @ 100 mls/hr 01/24/21 22:00 Sodium Chloride IV Q24H [facility] Insulin Human Lispro 0 unit 01/24/21 07:30 01/24/21 08:39 Insulin Lispro 100 Unit/Ml 3 Ml Vial SUBCUT Not Given QIDACHS [facility] Protocol Morphine Sulfate 1 mg 01/24/21 23:33 Morphine Sulfate 4 Mg/Ml Cartridge IVPUSH Q6H PRN Pain, Severe (Pain Scale 7-10) Sertraline HCl 25 mg 01/24/21 09:00 01/24/21 08:39 Sertraline Hcl 25 Mg Tablet G-TUBE Not Given DAILY [facility] Sertraline HCl 50 mg 01/24/21 09:00 01/24/21 08:39 Sertraline Hcl 50 Mg Tablet G-TUBE Not Given DAILY [facility] Home Medications Medication Instructions Recorded Confirmed Last Taken Type insulin glargine 100 unit/mL 20 unit SUBCUT BID ml 11/09/20 01/23/21 Unknown History subcutaneous solution ondansetron HCl 4 mg tablet 8 mg FEEDING TUBE TID tab 11/09/20 01/23/21 Unknown History sertraline 25 mg tablet 25 mg FEEDING TUBE DAILY 11/09/20 01/23/21 11/11/20 09:00 History sertraline 50 mg tablet 50 mg FEEDING TUBE DAILY 11/09/20 01/23/21 11/11/20 09:00 History insulin lispro See Protocol SUBCUT TIDAC 01/23/21 01/23/21 Unknown History oxycodone 10 mg FEEDING TUBE Q4H PRN 01/23/21 01/23/21 Unknown History sennosides [senna] 8.6 mg FEEDING TUBE BEDTIME 01/23/21 01/23/21 Unknown History Physical Exam Vital Signs: Vital Signs: Last Vital Signs Temp 97.3 F 01/24/21 07:29 Pulse 114 H 01/24/21 07:29 Resp 17 01/24/21 07:29 BP 93/55 L 01/24/21 07:29 Pulse Ox 98 01/24/21 07:29 Body Mass Index 25.9 Const: Other: Appears weak and frail General: comfortable and no acute distress Orientation/consciousness: patient oriented x3 Neck: Neck: Yes no lymphadenopathy Resp: Auscultation: clear to auscultation bilaterally Cardio: Rhythm: regular rhythm GI: Other: G-tube site appears constricted Palpation (GI): Soft to palpation, nontender and no guarding Neuro: General: patient oriented x3 Results Labs Result diagrams: 01/24/21 05:44 01/24/21 05:44 Labs: Abnormal lab results 03/02/1001/23/21 01/23/21 Range/Units 20:26 21:08 21:13 WBC 20.7 H (4.8-10.8) X10*3/uL RBC 4.10 L (4.60-5.80) X10*6/uL Hgb 12.3 L (14.0-18.0) g/dl Hct 36.3 L (42-52) % Plt Count 532 H (160-400) X10*3/uL MPV 9.0 L (9.4-12.4) fL Immature Gran % (Auto) 0.9 H (0.0-0.4) % Neut % (Auto) 85.4 H (45-73) % Lymph % (Auto) 5.7 L (20-40) % [place] # (Auto) 1.4 H (0.1-1.2) X10*3/uL Abs Immat Gran (auto) 0.19 H (0.00-0.03) X10*3/uL Absolute Neuts (auto) 17.7 H (2.0-8.3) X10*3/uL Sodium (135-145) mmol/L Potassium (3.3-5.1) mmol/L BUN (9-16) mg/dL POC Glucose 151 H (60-115) mg/dL Random Glucose (60-115) mg/dL Alkaline Phosphatase (39-117) U/L Albumin (3.5-5.0) g/dL Urine pH 8.5 H (5.0-8.0) Urine Protein 2+ H (NEG-TRACE) MG/DL Urine Blood 3+ H (NEG) Ur Leukocyte Esterase 3+ H (NEG) Urine WBC 30-49 H (0-4) /HPF 01/23/21 01/24/21 01/24/21 Range/Units 21:13 05:44 05:44 WBC 13.1 H (4.8-10.8) X10*3/uL RBC 3.80 L (4.60-5.80) X10*6/uL Hgb 11.4 L (14.0-18.0) g/dl Hct 34.8 L (42-52) % Plt Count 449 H (160-400) X10*3/uL MPV (9.4-12.4) fL Immature Gran % (Auto) 1.2 H (0.0-0.4) % Neut % (Auto) 74.5 H (45-73) % Lymph % (Auto) 11.1 L (20-40) % [place] # (Auto) 1.3 H (0.1-1.2) X10*3/uL Abs Immat Gran (auto) 0.16 H (0.00-0.03) X10*3/uL Absolute Neuts (auto) 9.7 H (2.0-8.3) X10*3/uL Sodium 130 L (135-145) mmol/L Potassium 5.2 H (3.3-5.1) mmol/L BUN 51 H 50 H (9-16) mg/dL POC Glucose (60-115) mg/dL Random Glucose 150 H D 173 H (60-115) mg/dL Alkaline Phosphatase 120 H (39-117) U/L Albumin 3.4 L (3.5-5.0) g/dL Urine pH (5.0-8.0) Urine Protein (NEG-TRACE) MG/DL Urine Blood (NEG) Ur Leukocyte Esterase (NEG) Urine WBC (0-4) /HPF // Range/Units 07:27 WBC (4.8-10.8) X10*3/uL RBC (4.60-5.80) X10*6/uL Hgb (14.0-18.0) g/dl Hct (42-52) % Plt Count (160-400) X10*3/uL MPV (9.4-12.4) fL Immature Gran % (Auto) (0.0-0.4) % Neut % (Auto) (45-73) % Lymph % (Auto) (20-40) % [place] # (Auto) (0.1-1.2) X10*3/uL Abs Immat Gran (auto) (0.00-0.03) X10*3/uL Absolute Neuts (auto) (2.0-8.3) X10*3/uL Sodium (135-145) mmol/L Potassium (3.3-5.1) mmol/L BUN (9-16) mg/dL POC Glucose 184 H (60-115) mg/dL Random Glucose (60-115) mg/dL Alkaline Phosphatase (39-117) U/L Albumin (3.5-5.0) g/dL Urine pH (5.0-8.0) Urine Protein (NEG-TRACE) MG/DL Urine Blood (NEG) Ur Leukocyte Esterase (NEG) Urine WBC (0-4) /HPF Short CBC 01/23/21 01/24/21 Range/Units 21:13 05:44 WBC 20.7 H 13.1 H (4.8-10.8) X10*3/uL Hgb 12.3 L 11.4 L (14.0-18.0) g/dl Hct 36.3 L 34.8 L (42-52) % Plt Count 532 H 449 H (160-400) X10*3/uL BMP 01/23/21 01/24/21 21:13 05:44 Sodium 130 L 135 Potassium 5.2 H 5.1 Chloride 98 100 Carbon Dioxide 23 22 BUN 51 H 50 H Creatinine 1.26 1.26 Calcium 10.0 9.4 Liver Function 01/23/21 Range/Units 21:13 Total Bilirubin 0.8 (0.0-1.0) mg/dL Direct Bilirubin 0.4 (0.0-0.5) mg/dL AST 23 (5-37) U/L ALT 28 (0-40) U/L Alkaline Phosphatase 120 H (39-117) U/L Albumin 3.4 L (3.5-5.0) g/dL Urine 01/23/21 Range/Units 21:08 Urine Color YELLOW Urine Appearance CLOUDY Urine pH 8.5 H (5.0-8.0) Ur Specific [place] 1.015 (1.005-1.025) Urine Protein 2+ H (NEG-TRACE) MG/DL Urine Glucose (UA) NEG (NEG) MG/DL All other labs normal. Assessment and Plan (1) Dislodged gastrostomy tube: Status: Acute His G-tube had apparently been dislodged yesterday morning. The ER staff had attempted to replace this without success. I was therefore called to place is morning. The patient had a 14 [place] romain tube previously. I re-attempted reinserting a 14 Jamaican romain tube to the G-tube site without success as this appears to be strictured. I therefore attempted to dilate this with both a 14 [place]ican red rubber catheter which is more rigid, as well as a 12 [place] red rubber catheter. I had no success with reinserting either of this. Unfortunately, putting in a smaller gauge catheter will not be very useful as this will not allow the feeding formula 2 passed through effectively. I therefore explained to him the above. I told him that we can do is to do another mini laparotomy and place a jejunostomy tube. He however says he no longer wants to have any procedure done and he says to leave the G-tube out. He stated that he is willing to pass on at this time as he says he has advanced esophageal cancer. He understands that without adequate nutrition,starvation and will be the outcome. One other option if he does not want any surgical intervention is to place him on parenteral feed via a PICC line. Procedures Date of Service Date of Service: 01/24/21
--- NOTE | 2021-01-24 10:57 | HO.PM.IMPN ---
Subjective Subjective Date of Service: 01/24/21 Interval History: no pain Cardiovascular Cardiovascular: Reports no additional cardiovascular complaints Respiratory Respiratory: Reports no additional respiratory complaints Physical Exam Vital Signs: Vital Signs: Last Vital Signs Temp 97.3 F 01/24/21 07:29 Pulse 114 H 01/24/21 07:29 Resp 17 01/24/21 07:29 BP 93/55 L 01/24/21 07:29 Pulse Ox 98 01/24/21 07:29 Body Mass Index 25.9 General: AO X 3, no acute distress Resp: CTA bilateral CVS: S1,S2,RRR GI: soft, non tender, non distended Neuro: motor grossly intact Psych: appropriate affect Objective Data Current Medications Generic Name Dose Route Start Last Admin Trade Name Freq PRN Reason Stop Dose Admin Enoxaparin Sodium 40 mg 01/24/21 01:00 01/24/21 01:20 Enoxaparin Sodium 40 Mg/0.4 Ml Syringe SUBCUT 40 mg Q24H VARUN Administration Ceftriaxone Sodium 1 gm/ 50 mls @ 100 mls/hr 01/24/21 22:00 Sodium Chloride IV Q24H [facility] Insulin Human Lispro 0 unit 01/24/21 07:30 01/24/21 08:39 Insulin Lispro 100 Unit/Ml 3 Ml Vial SUBCUT Not Given QIDACHS [facility] Protocol Morphine Sulfate 1 mg 01/24/21 23:33 Morphine Sulfate 4 Mg/Ml Cartridge IVPUSH Q6H PRN Pain, Severe (Pain Scale 7-10) Sertraline HCl 25 mg 01/24/21 09:00 01/24/21 08:39 Sertraline Hcl 25 Mg Tablet G-TUBE Not Given DAILY [facility] Sertraline HCl 50 mg 01/24/21 09:00 01/24/21 08:39 Sertraline Hcl 50 Mg Tablet G-TUBE Not Given DAILY [facility] Labs CBC & Chem 7: 01/24/21 05:44 01/24/21 05:44 Microbiology Microbiology Results: Microbiology 01/23/21 21:12 Blood - Venous Blood Culture - Preliminary Assessment and Plan (1) UTI (urinary tract infection) due to urinary indwelling catheter: Status: Acute Assessment and Plan: 80M sent for gtube dislodgement, found to have uti sepsis poa due to uti complicated by gram negative bacteremia continue ceftriaxone, follow up cultures Glans/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 would need surgical J tube vs hospice plan to discuss with niece and patient today Diabetes insulin DNR/DNI
[2021-01-24 11:28] VITALS: BP 110/65; PULSE 97; RESP 16; TEMP 36.2; O2SAT 97; BMI 25.9
--- NOTE | 2021-01-24 11:32 | MHC.CLN ---
SEE CLINICAL NUTRITION ASSESSMENT
[2021-01-24 11:46] LABS: Glucose, Whole Blood 167 mg/dL (60-115)
--- NOTE | 2021-01-24 11:56 | P.ACPN_ITS ---
Advanced Care Planning Note Advanced Care Planning Note Discussed with: patient and family member(s) Time spent (in minutes): 18 Narrative: Discussed with patient at bedside and with healthcare proxy patient's niece over FaceTime, we discussed patient's diagnosis of esophageal cancer and dysphagia requiring G-tube and G-tube dislodgement. Patient would require surgical placement of new J-tube in order to continue with feedings. Patient has noted that he is getting frustrated with these repeated events and is ready for end of life care. Patient's niece concurs that this is consistent with his previous expressions. Patient has decided not to pursue surgery and to go back to skilled nursing on hospice for end of life care. Problems Discussed (1) UTI (urinary tract infection) due to urinary indwelling catheter: (2) Dislodged gastrostomy tube: (3) Adenocarcinoma of esophagus:
--- NOTE | 2021-01-24 12:02 | PM.DS ---
DS: Providers Provider Date of Service: 01/24/21 Date of admission: 01/23/21 23:33 Primary care physician: Unknown Physician Consults: 01/24/21 08:25 Consult to General Surgery Routine Consulting Provider: Isaias Talamantes Reason for consultation: dislodged g tube DS: Diagnosis Discharge Diagnosis (1) UTI (urinary tract infection) due to urinary indwelling catheter: Status: Acute (2) Dislodged gastrostomy tube: Status: Acute (3) Adenocarcinoma of esophagus: Status: Acute (4) Sepsis: Status: Acute DS: Medications Discharge Medications Home Medications: Home Medications Medication Instructions Recorded Confirmed ondansetron HCl 4 mg tablet 8 mg FEEDING TUBE TID tab 11/09/20 01/23/21 Previous Rx's Medication Instructions Recorded morphine 20 mg PO Q4H PRN #500 ml 01/24/21 DS: Summary Hospital Course Hospital Course: Patient was admitted for sepsis secondary to urinary tract infection and Gram-negative bacteremia as well as PEG tube dislodgement. Patient was given ceftriaxone and sepsis resolved. Peg tube was unable to be replaced in emergency department. Patient was evaluated surgery indeterminate require a surgical approach for placement of new J-tube. Patient decided he does not want to go through this and would prefer end of life care. He will be discharged back to long-term on hospice. Time Spent with Patient Time attestation: Total time spent providing and/or coordinating discharge services: Discharge coordination time: Greater than 30 minutes Physical Exam Vital Signs: Vital Signs: Last Vital Signs Temp 97.1 F 01/24/21 11:28 Pulse 97 01/24/21 11:28 Resp 16 01/24/21 11:28 BP 110/65 01/24/21 11:28 Pulse Ox 97 01/24/21 11:28 Body Mass Index 25.9 General: lethargic oriented X 3, no acute distress, ill appearing Resp: rhonchi CVS: S1,S2,RRR GI: soft, non tender, non distended Neuro: motor grossly intact Psych: appropriate affect DS: Data Data Completed and Pending Completed studies during hospitalization [Text1]: Procedures Insertion of Feeding Device into Stomach, Open Approach (11/12/20) Labs on day of discharge: Laboratory Results - last 24 hr 01/23/21 01/23/21 01/23/21 17:56 20:26 21:08 WBC RBC Hgb Hct MCV MCH MCHC RDW Plt Count MPV Immature Gran % (Auto) Neut % (Auto) Lymph % (Auto) [place] % (Auto) Eos % (Auto) Baso % (Auto) Lymph # (Auto) [place] # (Auto) Eos # (Auto) Baso # (Auto) Abs Immat Gran (auto) Absolute Neuts (auto) Absolute Nucleated RBC Nucleated RBC % (auto) Hold Purple Top Hold Blue Top SEE NOTE Sodium Potassium Chloride Carbon Dioxide Anion Gap BUN Creatinine Estim Creat Clear Calc Estimated GFR POC Glucose 151 H Random Glucose Lactic Acid Calcium Total Bilirubin Direct Bilirubin AST ALT Alkaline Phosphatase Total Protein Albumin Urine Color YELLOW Urine Appearance CLOUDY Urine pH 8.5 H Ur Specific [place] 1.015 Urine Protein 2+ H Urine Glucose (UA) NEG Urine Ketones NEG Urine Blood 3+ H Urine Nitrite NEG Ur Leukocyte Esterase 3+ H Urine RBC 1-4 Urine WBC 30-49 H Ur Squamous Epith Cells TRACE Urine Bacteria 3+ COVID-19 (АЛЕКСАНДР) fluid Operations 01/23/21 01/23/21 01/23/21 21:12 21:12 21:13 WBC 20.7 H RBC 4.10 L Hgb 12.3 L Hct 36.3 L MCV 88.5 MCH 30.0 MCHC 33.9 RDW 15.6 Plt Count 532 H MPV 9.0 L Immature Gran % (Auto) 0.9 H Neut % (Auto) 85.4 H Lymph % (Auto) 5.7 L [place] % (Auto) 6.8 Eos % (Auto) 0.8 Baso % (Auto) 0.4 Lymph # (Auto) 1.2 [place] # (Auto) 1.4 H Eos # (Auto) 0.2 Baso # (Auto) 0.1 Abs Immat Gran (auto) 0.19 H Absolute Neuts (auto) 17.7 H Absolute Nucleated RBC 0.000 Nucleated RBC % (auto) 0.0 Hold Purple Top SEE NOTE Hold Blue Top Sodium Potassium Chloride Carbon Dioxide Anion Gap BUN Creatinine Estim Creat Clear Calc Estimated GFR POC Glucose Random Glucose Lactic Acid Calcium Total Bilirubin Direct Bilirubin AST ALT Alkaline Phosphatase Total Protein Albumin Urine Color Urine Appearance Urine pH Ur Specific [place] Urine Protein Urine Glucose (UA) Urine Ketones Urine Blood Urine Nitrite Ur Leukocyte Esterase Urine RBC Urine WBC Ur Squamous Epith Cells Urine Bacteria COVID-19 (АЛЕКСАНДР) Negative COVID-19 Clin Com See Note 01/23/21 01/23/21 01/24/21 21:13 21:13 05:44 WBC 13.1 H RBC 3.80 L Hgb 11.4 L Hct 34.8 L MCV 91.6 MCH 30.0 MCHC 32.8 RDW 15.8 Plt Count 449 H MPV 9.5 Immature Gran % (Auto) 1.2 H Neut % (Auto) 74.5 H Lymph % (Auto) 11.1 L [place] % (Auto) 10.2 Eos % (Auto) 2.5 Baso % (Auto) 0.5 Lymph # (Auto) 1.5 [place] # (Auto) 1.3 H Eos # (Auto) 0.3 Baso # (Auto) 0.1 Abs Immat Gran (auto) 0.16 H Absolute Neuts (auto) 9.7 H Absolute Nucleated RBC 0.000 Nucleated RBC % (auto) 0.0 Hold Purple Top Hold Blue Top Sodium 130 L Potassium 5.2 H Chloride 98 Carbon Dioxide 23 Anion Gap 14 BUN 51 H Creatinine 1.26 Estim Creat Clear Calc 41.4 Estimated GFR 55 POC Glucose Random Glucose 150 H D Lactic Acid 1.7 Calcium 10.0 Total Bilirubin 0.8 Direct Bilirubin 0.4 AST 23 ALT 28 Alkaline Phosphatase 120 H Total Protein 7.1 Albumin 3.4 L Urine Color Urine Appearance Urine pH Ur Specific [place] Urine Protein Urine Glucose (UA) Urine Ketones Urine Blood Urine Nitrite Ur Leukocyte Esterase Urine RBC Urine WBC Ur Squamous Epith Cells Urine Bacteria COVID-19 (АЛЕКСАНДР) COVID-19 Clin Com 01/24/21 01/24/21 01/24/21 05:44 07:27 11:32 WBC RBC Hgb Hct MCV MCH MCHC RDW Plt Count MPV Immature Gran % (Auto) Neut % (Auto) Lymph % (Auto) [place] % (Auto) Eos % (Auto) Baso % (Auto) Lymph # (Auto) [place] # (Auto) Eos # (Auto) Baso # (Auto) Abs Immat Gran (auto) Absolute Neuts (auto) Absolute Nucleated RBC Nucleated RBC % (auto) Hold Purple Top Hold Blue Top Sodium 135 Potassium 5.1 Chloride 100 Carbon Dioxide 22 Anion Gap 18 BUN 50 H Creatinine 1.26 Estim Creat Clear Calc 41.4 Estimated GFR 55 POC Glucose 184 H 167 H Random Glucose 173 H Lactic Acid Calcium 9.4 Total Bilirubin Direct Bilirubin AST ALT Alkaline Phosphatase Total Protein Albumin Urine Color Urine Appearance Urine pH Ur Specific [place] Urine Protein Urine Glucose (UA) Urine Ketones Urine Blood Urine Nitrite Ur Leukocyte Esterase Urine RBC Urine WBC Ur Squamous Epith Cells Urine Bacteria COVID-19 (АЛЕКСАНДР) COVID-19 Clin Com Preliminary micro results at discharge 01/23/21 22:00 Urine Culture - Preliminary Urine [place] Culture in progress. 01/23/21 21:12 Blood Culture - Preliminary Blood - Venous Discharge Plan Discharge Patient Disposition: Xfer SNF Referrals: [facility] [Outside] ([facility] OF [facility] AT THE [address]) [facility] [Outside] (RETURN BACK TO THE [address] SPOKE WITH [facility] [place] [facility] CONDUCTOR ZA [facility] TRANSPORTST[facility] ACTION BLS) Physician,Unknown [Primary Care Provider] - Discharge Medications: New morphine 20 mg/5 mL (4 mg/mL) solution 20 mg PO Q4H PRN (Reason: pain) Qty: 500 RF: 0 Continued ondansetron HCl [Zofran] 4 mg tablet 8 mg feeding tube TID RF: 0 Discontinued sennosides [senna] 8.6 mg Tablet 8.6 mg feeding tube BEDTIME RF: 0 insulin lispro 100 unit/mL Solution See Protocol unit SUBCUT TIDAC RF: 0 oxycodone 5 mg Tablet 10 mg feeding tube Q4H PRN (Reason: Pain (Scale Score 7-10)) RF: 0 Lantus U-100 Insulin 100 unit/mL solution 20 unit subcut BID RF: 0 sertraline 25 mg tablet 25 mg feeding tube DAILY RF: 0 sertraline 50 mg tablet 50 mg feeding tube DAILY RF: 0 Discharge Orders: Discharge Order (Routine); Ordered 01/24/21 Ordered By: Bhaskar Chi Diet: other Activity on Discharge: As tolerated Stand Alone Forms: Patient Portal Discharge page Care Plan Goals: Comfort Health Concerns: Esophageal cancer with dysphagia Plan of Treatment: End of life care, comfort feeds, morphine as needed, no need for antibiotics as will not increase quantity or quality of life Discharge Date/Time: 01/24/21 14:05
[2021-01-24] MEDS: Dextrose 5 % and Lactated Ring 1,000 ML 80 ML IVCONT (12:12)
--- NOTE | 2021-01-24 12:52 | MHC.CM.PN ---
NURSE AUTOMATIC TRANSMISSION MECHANIC NOTE ELECTRONIC MEDICAL RECORD REVIEWED ALONG WITH CASE DISCUSSED WITH PRESIDENTIAL HELICOPTER CREW CHIEF AND THE HOSPITALIST ,STAFF NURSE. PATIENT IS FROM THE [address] . HE WAS S[facility] DISLODGED G-TUBE. INTERVENTION RADIOLOGY WERE UNSUCCESSFUL IN ATTEMPT TO RE-INSERTION SURGICAL CONSULT CALLED AND PATIENT WOULD HAVE TO GO UNDER SURGERY FOR REPLACEMENT OF GT, TUBE CONFERENCE WITH HOSPITALIST , PATIENT AND HEALTH CARE PROXY/NIECE BALJINDER CAPUTO [phone] PATIENT WAS INFORMED THAT HE WQULD HAVE TO HAVE THE G-TUBE SURGICALLY PLACED AND HE REFUSED , (PER HOSPITALIST ALERT ,ORIENTATED AND UNDERSTANDS, ) PATIENTS NIECE IS IN AGREEMENT WITH PATIENTS WISHES . DECISION WAS TO RETURN BACK TO THE [address] , I SPOKE WITH NURSING ENGINEERING TEST SPECIALIST ZA AND SHE REQUEST ED HE BE TRANSPORT AROUND 2PM , CLINICALS FAXED TO THE NURSING [address] TELEPHONE NUMBER FOR THE UNIT GIVEN TO THE VICE PRESIDENT QUALITY IMPROVEMENT TO CALL FOR HANDOFF. I SPOKE WITH MIKE AT [facility] , THEY HAVE NOT DISCHARGED HIM AND HE WILL RESUME HIS HOSPICE CARE WTH THEM , CLINICAL D/C SUMMARY TO BE SENT VIA ALSCRIPT TO [facility]. CLINCIALS SENT TO [address] [phone] DISCHARGE JAIN RETURN BACK TO THE [address] WITH [facility] , TRANSPORTATION ACTION BLS 2PM REQUESTED [facility] TO FOLLOW MEDICARE IMM REVIEWED WITH PATIENT AND HIS NIECE
== END 2021-01-24 14:05 | disposition skilled nursing facility (03) | DRG 698 ==
LOC: HO.ED 23:45 → HO.S3 23:54
PROVIDERS: Admitting Provider Hospitalist; Emergency Provider Emergency Medicine Emergency Medical Services; Visit Provider Internal Medicine
DX: T83.511A Infection and inflammatory reaction due to indwelling urethral catheter, initial encounter (principal); A41.9 Sepsis, unspecified organism; T85.528A Displacement of other gastrointestinal prosthetic devices, implants and grafts, initial encounter; C15.9 Malignant neoplasm of esophagus, unspecified; N39.0 Urinary tract infection, site not specified; Z88.0 Allergy status to penicillin; I12.9 Hypertensive chronic kidney disease with stage 1 through stage 4 chronic kidney disease, or unspecified chronic kidney disease; E11.22 Type 2 diabetes mellitus with diabetic chronic kidney disease; N18.30 Chronic kidney disease, stage 3 unspecified; E11.42 Type 2 diabetes mellitus with diabetic polyneuropathy; Z20.822 Contact with and (suspected) exposure to COVID-19; Z96.0 Presence of urogenital implants; E03.9 Hypothyroidism, unspecified; E78.5 Hyperlipidemia, unspecified; E87.5 Hyperkalemia; Z88.2 Allergy status to sulfonamides; Z79.899 Other long term (current) drug therapy; Z66 Do not resuscitate
CPT/HCPCS: 36415; 80048; 80053; 80076; 81001; 81003; 82947; 83605; 85025; 87040; 87077; 87086; 87088; 87186; 87205; 87635; 96365; 96374; 96375; 99285; J0696; J1170; J1650

== ENCOUNTER → 2024-07-19 14:41 | Outpatient (RCR) | payer MEDICARE, SELFPAY ==
[2020-09-28 10:00] VITALS: BP 125/65; PULSE 86; RESP 12; TEMP 36.5; O2SAT 96; BMI 26.3
[2020-09-28 11:05] LABS: MANUAL DIFF FLAG NO
--- NOTE | 2020-09-28 11:10 | PM.HEMONCCN ---
Subjective - Subjective Chief complaint: consult for adenocarcinoma GE junction. Patient: new to practice Requesting Physician: Jeet Astorga. 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 HPI - Consult Narrative Reason for consult: POORLY DIFFERENTIATED ADENOCARCINOMA OF GE JUNCTION. Narrative: Gustavo Sanches is a pleasant 80 year old gentleman, who presented with dysphagia over the last couple of months. This progressed to the point that he was able to swallow mostly semi liquid diet. he denies odynophagia however he does complain of pain in his abdomen after eating. he has some heartburn and nausea. Lately he does mention he has been vomiting. His energy level is okay. he is considered a fall risk. [facility] He is Unable to walk due to hip issues. He has had an indwelling Avila for a couple of years, due to urinary retention. He describes a rash on the back. He underwent an upper endoscopy by Dr. Astorga. This revealed: Findings: Larynx:normal Esophagus: GE junction at 37 cm, diaphragm hiatus at 37 cm, malignant appearing stricture with ulceration and friable tissue extending from GEJ to 31 cm, scope was able to bypass with gentle pressure, biopsies taken Stomach: Patchy gastric erythema. Grade 2 flap valve on retroflexed examination of the cardia. 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 HER2 Min: Negative. P 40: Negative. Synaptophysin: Negative. Chromogranin: Negative. Pancytokeratin: Positive. Review of Systems - Constitutional Reports fatigue, Reports lack of energy, Reports malaise, Denies fever(s), Denies headache(s) - Eyes Denies blurry vision - ENT Reports system reviewed and no additional complaints, except as documented - Cardiovascular Denies chest pain at rest, Denies chest pain with activity - Respiratory Denies cough - Gastrointestinal Reports abdominal pain, Reports belching, Reports bloating, Denies bright, red blood in stools - Musculoskeletal Denies body aches - Neurologic Reports system reviewed and no additional complaints, except as documented - Psychiatric Reports anxiety - Endocrine Denies excessive sweating - Hematologic/Lymphatic Denies easy bruising - Allergic/Immunologic Denies GI upset with certain foods [facility] Medical History: Medical History (Last Updated 09/19/20 @ 09:35 by Salma Badillo) BPH (benign prostatic hyperplasia) Depression Diabetes Dysphagia HTN (hypertension), benign Hypothyroid Lumbar radiculopathy Neuropathy Obesity Post herpetic neuralgia Urinary catheter in place Family History: Family History (Last Updated 09/12/20 @ 15:05 by Michelle Barney MA) Father History of heart attack Mother Hx of diabetes mellitus Hx of arthrodesis Surgical History: Surgical History (Last Reviewed 09/19/20 @ 09:35 by Salma Badillo) Hx of cholecystectomy Smoking status: Never smoker Home Medications and Allergies Home Medications Medication Instructions Recorded Confirmed Type amlodipine 2.5 mg tablet 2.5 mg PO DAILY 09/12/20 09/28/20 History buspirone 15 mg tablet 15 mg PO BID 09/12/20 09/28/20 History gabapentin 100 mg capsule 100 mg PO BEDTIME 09/12/20 09/28/20 History insulin glargine 100 unit/mL 20 unit SUBCUT DAILY ml 09/12/20 09/28/20 History subcutaneous solution insulin lispro 100 unit/mL See Rx Instructions SUBCUT TID 09/12/20 09/28/20 History subcutaneous pen levothyroxine 25 mcg tablet 25 mcg PO DAILY 09/12/20 09/28/20 History multivitamin 1 tab PO DAILY 09/12/20 09/28/20 History omeprazole 40 mg capsule,delayed 40 mg PO DAILY 09/12/20 09/28/20 History release sertraline 100 mg tablet 75 mg PO DAILY 09/12/20 09/28/20 History Allergies Allergy/AdvReac Type Severity Reaction Status Date / Time amoxicillin [AMOXICILLIN] Allergy Unknown SWELLING Unverified 08/09/20 19:49 bee pollen [BEE STINGS] Allergy Unknown SWELLING Unverified 08/09/20 19:49 clavulanic acid [Augmentin] Allergy Unknown Verified 05/15/20 00:00 shellfish derived Allergy Unknown HIVES Unverified 08/09/20 19:49 [SHELLFISH DERIVED] turkey [TURKEY] Allergy Unknown SWELLING Unverified 08/09/20 19:49 bees Allergy Unknown Uncoded 05/15/20 00:00 poultry Allergy Unknown Uncoded 05/15/20 00:00 shellfish Allergy Unknown Uncoded 05/15/20 00:00 Sulfa Allergy Unknown Uncoded 05/15/20 00:00 [place] Allergy Unknown Uncoded 05/15/20 00:00 Physical Exam Vital signs: Vital Signs Temp 97.7 F 09/28/20 10:00 Pulse 86 09/28/20 10:00 Resp 12 09/28/20 10:00 BP 125/65 09/28/20 10:00 Pulse Ox 96 09/28/20 10:00 Intake & Output 09/27/20 09/28/20 09/28/20 18:59 06:59 18:59 Other: Weight 78.5 kg Weight 78.5 kg - Constitutional Present: no acute distress - Routine HEENT Exam Head: Present: normal inspection ENT: Present: mucous membranes moist - Routine Neck Exam Present: supple - Routine Respiratory Exam Present: CTAB - Routine Cardiovascular Exam Cardiovascular: Present: RRR, S1, S2 - Routine Abdominal Exam Present: tenderness - Routine Extremities Exam Present: nontender - Routine Back/Spine/Pelvis Exam Back/Spine: Absent: CVA tenderness - Routine Skin Exam Present: intact - Routine Neurological Exam Present: alert, oriented X3 - Detailed Neurological Exam: Coma Scale Eye Opening: Spontaneous (4) Verbal Response: Oriented (5) Motor Response: Obeys commands (6) Tari Coma Scale Total: 15 - Routine Psychiatric Exam Present: anxious Hem/Onc Consult Result - Labs CBC & Chem 7: 09/28/20 10:55 09/28/20 10:55 Assessment and Plan (1) Adenocarcinoma of esophagus Status: Acute This is a pleasant 80-year-old [facility] He presented with symptoms of dysphagia over the past couple months. That has progressed to the point that he can only tolerate liquids. He had an upper endoscopy which revealed: Findings: Larynx:normal Esophagus: GE junction at 37 cm, diaphragm hiatus at 37 cm, malignant appearing stricture with ulceration and friable tissue extending from GEJ to 31 cm, scope was able to bypass with gentle pressure, biopsies taken Stomach: Patchy gastric erythema. Grade 2 flap valve on retroflexed examination of the cardia. Duodenum: Normal bulb and descending duodenum, Intervention: Biopsies as noted above Impression/Findings: Malignant appearing esophageal stricture. 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 HER2 Min: Negative. P 40: Negative. Synaptophysin: Negative. Chromogranin: Negative. Pancytokeratin: Positive. He had CT imaging of chest, abdomen and pelvis, yesterday. I discussed the diagnosis prognosis and treatment options with him. I would recommend combined modality therapy with radiation along with chemotherapy. Can consider surgery at a later date based upon the response. I did address the issue of nutrition. Mentioned that a feeding tube would be required. He is not too keen on that. A stent would be an option,however concern with that is that once tumor shrinks with treatment, the stent may slide. PLAN: I have discussed the case with Dr. Ferrara. He has graciously set up an appointment for next Thursday at 13:00. Dr. Escoto feels he can easily place a G tube for nutrition. An appointment has been set up with Farhan Vasquez for radiation for 10/03. He will return in a week for a follow-up visit. All his and his niece's questions were answered to their satisfaction. Thank you. cc: Dr. Astorga. Dr. Ferrara. Addendum: Patient is willing to have the G-tube placed. will arrange.
[2020-09-28 11:17] LABS: Basophils Absolute Auto 0.1 X10*3/uL (0.0-0.2); Basophils Percent Auto 0.7 % (0-2); Eosinophils Absolute Auto 0.4 X10*3/uL (0.0-0.4); Eosinophils Percent Auto 3.7 % (0-4); Hematocrit 37.9 % (42-52); Hemoglobin 12.8 g/dl (14.0-18.0); Imm Gran Abs Auto 0.09 X10*3/uL (0.00-0.03); Imm Gran Pct Auto 0.8 % (0.0-0.4); Lymphocytes Absolute Auto 1.4 X10*3/uL (1.2-4.9); Lymphocytes Percent Auto 12.5 % (20-40); Mean Corpuscular HGB Conc 33.8 g/dl (31.0-36.0); Mean Corpuscular Hemoglobin 29.2 pg (27.0-33.0); Mean Corpuscular Volume 86.3 fL (80-98); Mean Platelet Volume 8.9 fL (9.4-12.4); Monocytes Absolute Auto 0.9 X10*3/uL (0.1-1.2); Monocytes Percent Auto 8.1 % (2-11); Neutrophils Absolute Auto 8.1 X10*3/uL (2.0-8.3); Neutrophils Percent Auto 74.2 % (45-73); Platelet Count 395 X10*3/uL (160-400); Red Blood Count 4.39 X10*6/uL (4.60-5.80); Red Cell Distribution Width 13.9 % (11.0-16.0); White Blood Count 10.9 X10*3/uL (4.8-10.8)
[2020-09-28 11:48] LABS: Alanine Aminotransferase 33 U/L (0-40); Alkaline Phosphatase 67 U/L (39-117); Anion Gap 12 (12-20); Aspartate Amino Transferase 17 U/L (5-37); Bilirubin Total 0.5 mg/dL (0.0-1.0); Blood Urea Nitrogen 24 mg/dL (9-16); Calcium 9.2 mg/dL (8.4-10.2); Carbon Dioxide 25 mmol/L (22-29); Chloride 104 mmol/L (96-108); Creatinine Clr Calc Pharmacy 43.1; Estimated Glomerular Filt Rate 53; Glucose Random 130 mg/dL (60-115); Potassium 5.2 mmol/l (3.3-5.1); Sodium 136 mmol/L (135-145); Total Protein 7.6 g/dL (6.5-8.0)
--- NOTE | 2020-10-03 17:03 | MHC.HEMONC ---
Pt had Radiation Consultation today at [facility]. Per RN will have PET Scan tomorrow at [facility]. Pt also agreed to GTube replacement. 's report will be faxed once finalized.
[2020-10-05 14:22] VITALS: BP 111/66; PULSE 82; RESP 12; TEMP 36.4; O2SAT 98; BMI 24.5
--- NOTE | 2020-10-05 14:44 | PM.HEMONCPN ---
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 Interval History Interval history: Gustavo Sanches is a pleasant 80 year old gentleman, who presented with dysphagia over the last couple of months. This progressed to the point that he was able to swallow mostly semi liquid diet. he denies odynophagia however he does complain of pain in his abdomen after eating. he has some heartburn and nausea. Lately he does mention he has been vomiting. His energy level is okay. he is considered a fall risk. [facility] He is unable to walk due to hip issues. He has had an indwelling Avila for a couple of years, due to urinary retention. He describes a rash on the back. He underwent an upper endoscopy by Dr. Astorga. This revealed: Findings: Larynx:normal Esophagus: GE junction at 37 cm, diaphragm hiatus at 37 cm, malignant appearing stricture with ulceration and friable tissue extending from GEJ to 31 cm, scope was able to bypass with gentle pressure, biopsies taken Stomach: Patchy gastric erythema. Grade 2 flap valve on retroflexed examination of the cardia. 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 HER2 Min: Negative. P 40: Negative. Synaptophysin: Negative. Chromogranin: Negative. Pancytokeratin: Positive. He is now here for a follow-up visit. He is not feeling well at all. he is not eating anything. even liquids are not going down. He has lost 8 lb since last Thursday. He is extremely fatigued. He is here in a wheelchair. He denies fever nor chills. No cough nor sputum. No CP nor SOB. Denies abdominal pain nausea nor vomiting. bowels are working. He is constipated. No gross blood in the stools. Review of Systems - Constitutional Reports body ache(s), Reports fatigue, Reports lack of energy, Reports malaise, Reports weight loss, Denies fever(s), Denies headache(s) - Eyes Denies blurry vision - ENT Reports system reviewed and no additional complaints, except as documented - Cardiovascular Denies chest pain at rest - Respiratory Denies chest congestion - Gastrointestinal Denies abdominal pain, Denies change in bowel habits - Musculoskeletal Reports abnormal walking, Reports joint pain - Neurologic Reports system reviewed and no additional complaints, except as documented, Denies headache(s) - Psychiatric Reports difficulty concentrating - Endocrine Denies excessive sweating - Hematologic/Lymphatic Denies easy bruising - Allergic/Immunologic Reports GI upset with certain foods PMFSH Medical History: Medical History (Last Updated 09/19/20 @ 09:35 by Salma Badillo) BPH (benign prostatic hyperplasia) Depression Diabetes Dysphagia HTN (hypertension), benign Hypothyroid Lumbar radiculopathy Neuropathy Obesity Post herpetic neuralgia Urinary catheter in place Functional capacity: wheelchair bound Patient : No Family History: Family History (Last Updated 09/12/20 @ 15:05 by Michelle Barney MA) Father History of heart attack Mother Hx of diabetes mellitus Hx of arthrodesis Surgical History: Surgical History (Last Reviewed 09/19/20 @ 09:35 by Salma Badillo) Hx of cholecystectomy Smoking status: Never smoker Home Medications and Allergies Home Medications Medication Instructions Recorded Confirmed Type amlodipine 2.5 mg tablet 2.5 mg PO DAILY 09/12/20 10/05/20 History buspirone 15 mg tablet 15 mg PO BID 09/12/20 10/05/20 History gabapentin 100 mg capsule 100 mg PO BEDTIME 09/12/20 10/05/20 History insulin glargine 100 unit/mL 20 unit SUBCUT DAILY ml 09/12/20 10/05/20 History subcutaneous solution insulin lispro 100 unit/mL See Rx Instructions SUBCUT TID 09/12/20 10/05/20 History subcutaneous pen levothyroxine 25 mcg tablet 25 mcg PO DAILY 09/12/20 10/05/20 History multivitamin 1 tab PO DAILY 09/12/20 10/05/20 History omeprazole 40 mg capsule,delayed 40 mg PO DAILY 09/12/20 10/05/20 History release sertraline 100 mg tablet 75 mg PO DAILY 09/12/20 10/05/20 History Allergies Allergy/AdvReac Type Severity Reaction Status Date / Time amoxicillin [AMOXICILLIN] Allergy Unknown SWELLING Unverified 08/09/20 19:49 bee pollen [BEE STINGS] Allergy Unknown SWELLING Unverified 08/09/20 19:49 clavulanic acid [Augmentin] Allergy Unknown Verified 05/15/20 00:00 shellfish derived Allergy Unknown HIVES Unverified 08/09/20 19:49 [SHELLFISH DERIVED] turkey [TURKEY] Allergy Unknown SWELLING Unverified 08/09/20 19:49 bees Allergy Unknown Uncoded 05/15/20 00:00 poultry Allergy Unknown Uncoded 05/15/20 00:00 shellfish Allergy Unknown Uncoded 05/15/20 00:00 Sulfa Allergy Unknown Uncoded 05/15/20 00:00 [place] Allergy Unknown Uncoded 05/15/20 00:00 Exam Vital signs: Vital Signs Temp 97.5 F 10/05/20 14:22 Pulse 82 10/05/20 14:22 Resp 12 10/05/20 14:22 BP 111/66 10/05/20 14:22 Pulse Ox 98 10/05/20 14:22 Intake & Output 10/04/20 10/05/20 10/05/20 18:59 06:59 18:59 Other: Weight 73 kg Weight 73 kg Body Mass Index 24.5 - Constitutional Present: no acute distress, moderate distress - Routine HEENT Exam Head: Present: normal inspection ENT: Present: mucous membranes dry - Routine Respiratory Exam Present: CTAB - Routine Cardiovascular Exam Cardiovascular: Present: RRR, S1, S2 - Routine Abdominal Exam Present: tenderness - Routine Extremities Exam Present: nontender - Routine Back/Spine/Pelvis Exam Back/Spine: Absent: CVA tenderness - Routine Skin Exam Present: intact - Routine Neurological Exam Present: alert, oriented X3 - Detailed Neurological Exam: Coma Scale Eye Opening: Spontaneous (4) Data - Labs CBC & Chem 7: 09/28/20 10:55 09/28/20 10:55 Progress Note: A/P (1) Adenocarcinoma of esophagus Status: Acute Assessment and plan: This is a pleasant 80-year-old gentleman [facility]. He presented with symptoms of dysphagia over the past couple months. That has progressed to the point that he can only tolerate liquids. He had an upper endoscopy which revealed: Findings: Larynx:normal Esophagus: GE junction at 37 cm, diaphragm hiatus at 37 cm, malignant appearing stricture with ulceration and friable tissue extending from GEJ to 31 cm, scope was able to bypass with gentle pressure, biopsies taken Stomach: Patchy gastric erythema. Grade 2 flap valve on retroflexed examination of the cardia. Duodenum: Normal bulb and descending duodenum, Intervention: Biopsies as noted above Impression/Findings: Malignant appearing esophageal stricture. 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 HER2 Min: Negative. P 40: Negative. Synaptophysin: Negative. Chromogranin: Negative. Pancytokeratin: Positive. Data Base: 10/01: PT 14.8/INR 1.2. PTT 31.5. CBC: WBC 9.6, HGB 11.7, HCT 35, PLT 378. 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 FBS 107. alb 3.4, Ca 9.2. LFTs: 0.4/59/. He had CT imaging of chest, abdomen and pelvis, last . I discussed the diagnosis prognosis and treatment options with him. I would recommend combined modality therapy with radiation along with chemotherapy. Can consider surgery at a later date based upon the response. I did address the issue of nutrition. Mentioned that a feeding tube would be required. He is not too keen on that. A stent would be an option, however concern with that is that once tumor shrinks with treatment, the stent may slide. I had discussed the case with Dr. Ferrara. He saw him today. He has not been able to swallow anything, for the past couple of days. I have recommended a G tube for nutrition. Dr. Ferrara also feels he needs a G tube placed. He was seen by Farhan Vasquez for radiation on 10/03. They are in the process of setting up the planning. PLAN: I have requested IR to place a G tube. Dr. Lewis [facility] are experienced, they will be here next week. Meanwhile, I have requested for the kit to be ordered. He was referred to the ER to be admitted for IV hydration/nutrition. D/W Dr Astorga and hospitalist. All his and his niece's questions were answered to their satisfaction. Thank you. cc: Dr. Astorga. Dr. Ferrara. - Time Spent With Patient Total time spent is greater than 50% in coordination of care (as documented) at patient's floor/unit and/or counseling patient: 25 - 35 minutes
--- NOTE | 2020-10-22 09:51 | MHC.HEMONC ---
Patient D/C from inpatient on hospice to [facility], Dr. Alonso made aware. No need to follow per MD
== END | disposition home or self-care (01) ==
LOC: HO.ONC 09-28 09:29
PROVIDERS: Internal Medicine Gastroenterology; PCP Internal Medicine; Visit Provider Internal Medicine Medical Oncology
DX: C16.0 Malignant neoplasm of cardia (principal); K22.711 Barrett's esophagus with high grade dysplasia
CPT/HCPCS: 36415; 80053; 82378; 85025; 99204; 99214